=== PATIENT | female | born 1985 | race Hispanic/Latino ===

== ENCOUNTER → 2018-08-22 14:01 | Outpatient (CLI) | payer OTHER, SELFPAY ==
--- NOTE | 2018-08-22 14:02 | US_ITS ---
STUDY: ULTRASOUND TRANSVAGINAL CLINICAL: Female, 33 years old. Pelvic pain TECHNIQUE: Transvaginal COMPARISON: None. FINDINGS: The uterus is normally anteverted and measures 8.4 x 5.2 x 3.3 cm with an endometrial stripe thickness of 1.1 cm. Both ovaries are seen in the both demonstrate normal Doppler flow. The right measures 2.8 x 3.2 x 2.8 cm and has a 2.0 cm cyst within it. The left ovary measures 2.3 x 2.4 x 1.5 cm with no cystic areas within it. There is no free fluid in the cul-de-sac. US/Transvaginal Non- IMPRESSION: A 2.0 cm right ovarian cyst. The study is otherwise normal Electronically Signed: Israel Shi MD at 4:38 EDT Tel , Service support ,
--- NOTE | 2018-08-22 14:02 | US_ITS ---
STUDY: ULTRASOUND TRANSVAGINAL CLINICAL: Female, 33 years old. Pelvic pain TECHNIQUE: Transvaginal COMPARISON: None. FINDINGS: The uterus is normally anteverted and measures 8.4 x 5.2 x 3.3 cm with an endometrial stripe thickness of 1.1 cm. Both ovaries are seen in the both demonstrate normal Doppler flow. The right measures 2.8 x 3.2 x 2.8 cm and has a 2.0 cm cyst within it. The left ovary measures 2.3 x 2.4 x 1.5 cm with no cystic areas within it. There is no free fluid in the cul-de-sac. US/Pelvic (Non ) IMPRESSION: A 2.0 cm right ovarian cyst. The study is otherwise normal Electronically Signed: Israel Shi MD at 4:38 EDT Tel , Service support ,
== END ==
PROVIDERS: Referring Provider Obstetrics & Gynecology; Visit Provider Obstetrics & Gynecology
DX: N80.9 Endometriosis, unspecified (principal); N83.201 Unspecified ovarian cyst, right side
CPT/HCPCS: 76830; 76856; 93976

== ENCOUNTER → 2018-09-16 12:46 | Outpatient (CLI) | payer OTHER, SELFPAY ==
[2018-09-16 13:07] LABS: Absolute Lymphocyte Count 2.39 X10^3/ul (0.83-4.51); Absolute Neutrophil Count 7.1 X10^3/uL (2.0-7.7); Basophil# 0.02 X10^3/uL; Basophil% 0.2 % (0-1); Eosinophil# 0.06 X10^3/uL; Eosinophils% 0.6 % (0-5); Hematocrit 38.7 % (37-47); Hemoglobin 12.1 g/dl (12.0-15.0); Lymphocyte # 2.39 X10^3/ul (4.0); Lymphocyte % 23.6 % (19-41); Mean Corp Hgb Conc 31.3 g/gl (32-36); Mean Corpuscular Hgb 26.8 pg (27.0-32.0); Mean Corpuscular Volume 85.6 fL (81-99); Mean Platelet Vol. 8.6 fl (6.2-12.0); Monocyte# 0.59 X10^3/uL; Monocyte% 5.8 % (0-10); Neutrophil # 7.05 X10^3/uL (2.7-7.7); Neutrophil % 69.6 % (47-70); Platelet Count 287 K/mm3 (150-450); RBC Distribution Width CV 14.7 % (11.6-14.6); RBC Distribution Width SD 44.8 fl (35.1-43.9); Red Blood Count 4.52 M/mm3 (4.2-5.4); White Blood Count 10.1 K/mm3 (4.4-11.0)
[2018-09-16 13:08] LABS: POSITIVE COUNT NO; POSITIVE DIFFERENTIAL NO; POSITIVE MORPHOLOGY NO
== END ==
PROVIDERS: Referring Provider Obstetrics & Gynecology; Visit Provider Obstetrics & Gynecology
DX: N92.0 Excessive and frequent menstruation with regular cycle (principal)
CPT/HCPCS: 36415; 85025

== ENCOUNTER → 2019-01-12 12:12 | Outpatient (CLI) | payer OTHER, SELFPAY ==
[2019-01-11 12:56] VITALS: BMI 34.8
[2019-01-12 12:52] LABS: Absolute Lymphocyte Count 2.08 X10^3/ul (0.83-4.51); Absolute Neutrophil Count 7.5 X10^3/uL (2.0-7.7); Basophil# 0.03 X10^3/uL; Basophil% 0.3 % (0-1); Eosinophil# 0.04 X10^3/uL; Eosinophils% 0.4 % (0-5); Hematocrit 39.2 % (37-47); Hemoglobin 12.3 g/dl (12.0-15.0); Lymphocyte # 2.08 X10^3/ul (4.0); Lymphocyte % 20.5 % (19-41); Mean Corp Hgb Conc 31.4 g/gl (32-36); Mean Corpuscular Hgb 26.9 pg (27.0-32.0); Mean Corpuscular Volume 85.8 fL (81-99); Mean Platelet Vol. 8.9 fl (6.2-12.0); Monocyte# 0.49 X10^3/uL; Monocyte% 4.8 % (0-10); Neutrophil # 7.47 X10^3/uL (2.7-7.7); Neutrophil % 73.7 % (47-70); Platelet Count 353 K/mm3 (150-450); RBC Distribution Width SD 42.9 fl (35.1-43.9); Red Blood Count 4.57 M/mm3 (4.2-5.4); White Blood Count 10.1 K/mm3 (4.4-11.0)
[2019-01-12 12:53] LABS: POSITIVE COUNT NO; POSITIVE DIFFERENTIAL NO; POSITIVE MORPHOLOGY NO
[2019-01-12 13:06] LABS: Erythrocyte Sedimentation Rate 44 mm/hr (0-20)
[2019-01-12 13:27] LABS: ALB/GLOB Ratio 0.7 RATIO (0.9-2.4); AST(SGOT) 10 U/L (15-37); Alanine Aminotransfer ALT/SGPT 12 U/L (13-56); Alkaline Phosphatase 129 U/L (45-117); Anion Gap 7 (5-15); BUN 7 mg/dL (7-18); BUN/Creat Ratio 10.7 RATIO (10-20); Calcium,Total 8.5 mg/dL (8.5-10.1); Chloride 109 mmol/L (98-107); Creatinine, Serum 0.65 mg/dL (0.55-1.02); EST Glomerular Filtration Rate 111 mL/min (>60); Est Glom Filt Rate - Afr Amer 135 mL/min (>60); Globulin 4.1 g/dL (2.2-4.2); Glucose 96 mg/dL (74-106); Potassium 3.9 mmol/L (3.5-5.1); Protein, Total 7.1 g/dL (6.4-8.2); Sodium Level 138 mmol/L (136-145); Thyroid Stim Hormone (TSH) 1.34 uIU/mL (0.358-3.74)
[2019-01-15 10:14] LABS: ANTINUCLEAR ANTIBODIES DIRECT Negative (Negative)
== END ==
PROVIDERS: Family Provider Internal Medicine; PCP Internal Medicine; Referring Provider Internal Medicine; Visit Provider Internal Medicine
DX: R50.9 Fever, unspecified (principal); R53.81 Other malaise; R53.82 Chronic fatigue, unspecified; E66.9 Obesity, unspecified
CPT/HCPCS: 36415; 80053; 84443; 85025; 85652; 86038; 86225; 86235

== ENCOUNTER → 2019-02-18 08:54 | Outpatient (CLI) | payer OTHER, SELFPAY ==
[2019-02-10 14:12] VITALS: BMI 34.8
--- NOTE | 2019-02-18 08:56 | US_ITS ---
STUDY: SUPERFICIAL ULTRASOUND - LEFT NECK REASON FOR EXAM: Female, 33 years old. Left neck pain and bilateral swelling TECHNIQUE: A superficial ultrasound was performed with real-time and static morris-scale imaging. COMPARISON: None. FINDINGS: There are several lymph nodes bilaterally. Largest on the right measuring 2.1 x 1.5 x 0.7 cm. This has a small central hyperechoic fatty hilum with a thicker hypoechoic cortex. Similar morphology is noted within the left neck in multiple lymph nodes, largest measuring 2.4 x 1.5 x 0.8 cm. US/Head/Neck Soft Tissue IMPRESSION: Morphologically abnormal lymph nodes bilaterally. Nonspecific overall finding; and most likely related to some type of viral illness or upper respiratory infection. Recommend repeat physical exam and ultrasound imaging in 3-6 months. Electronically Signed: Deangelo Apodaca DO at 13:54 EDT Tel , Service support ,
--- NOTE | 2019-02-18 08:56 | CT_ITS ---
STUDY: CT CHEST WITHOUT CONTRAST REASON FOR EXAM: Female, 33 years old. Shortness of breath for 6 months, left-sided neck pain RADIATION DOSAGE (If Supplied By Facility): CTDIvol = ( 12.83 ) mGy, DLP = ( 432.68 ) mGycm TECHNIQUE: Transaxial imaging was performed without the administration of intravenous contrast material. Multiplanar coronal and sagittal images were reformatted. Individualized dose optimization techniques were used for this CT. COMPARISON: None. FINDINGS: The lungs are normal. There is no demonstrated pleural abnormality. Normal heart and pericardium. Normal mediastinum. Normal hilar regions. Normal unenhanced pulmonary arteries. Normal aorta arch and descending thoracic aorta. Normal osseous structures. There is a small hiatal hernia. CT/Chest without Contrast IMPRESSION: 1. Normal unenhanced CT Chest examination. No mediastinal/hilar adenopathy or pulmonary nodules detected. 2. Small hiatal hernia. Electronically Signed: Titi Rodriguez MD at 16:14 EDT , Service support ,
== END ==
PROVIDERS: Family Provider Internal Medicine; PCP Internal Medicine; Referring Provider Internal Medicine; Visit Provider Internal Medicine
DX: M54.2 Cervicalgia (principal); D86.9 Sarcoidosis, unspecified; R70.0 Elevated erythrocyte sedimentation rate; R79.89 Other specified abnormal findings of blood chemistry
CPT/HCPCS: 71250; 76536

== ENCOUNTER → 2019-02-22 11:39 | Outpatient (CLI) | payer OTHER, SELFPAY ==
[2019-02-22 11:15] VITALS: BMI 35.3
[2019-02-22 14:23] LABS: Internal QC Validated? YES +Cl - CLEAR BKGD; Monotest Negative (Negative)
== END ==
PROVIDERS: Family Provider Internal Medicine; PCP Internal Medicine; Visit Provider Nurse Practitioner Family
DX: J02.9 Acute pharyngitis, unspecified (principal); R50.9 Fever, unspecified; R59.0 Localized enlarged lymph nodes
CPT/HCPCS: 36415; 86308

== ENCOUNTER → 2019-03-17 07:25 | Outpatient (CLI) | payer OTHER, SELFPAY ==
[2019-03-14 14:34] VITALS: BMI 35.2
--- NOTE | 2019-03-17 07:27 | CT_ITS ---
STUDY: CT SOFT TISSUE NECK WITH CONTRAST REASON FOR EXAM: Female, 33 years old. Cervical lymphadenopathy, night silhouettes and chronic cough RADIATION DOSAGE (If Supplied By Facility): CTDIvol = ( 22.24 ) mGy, DLP = ( 560.85 ) mGycm TECHNIQUE: The patient was scanned in a multi-detector CT scanner. High resolution transaxial imaging was performed following intravenous administration of 75 IV Isovue 370. Sagittal and coronal images were reconstructed. Individualized dose optimization techniques were used for this CT. COMPARISON: None. FINDINGS: Normal bilateral parotid glands. Normal bilateral ammunition specialist spaces. Normal bilateral parapharyngeal spaces. Normal bilateral carotid spaces. Normal bilateral sublingual and submandibular glands and spaces. Normal visualized nasopharynx. Normal retropharyngeal space. Normal perivertebral space. Normal visualized bilateral faucial tonsils. The visualized tongue, tongue base and oropharynx are normal. Shotty bilateral cervical chain lymph nodes. There is no demonstrated solid or cystic mass lesion. There is no abnormal contrast enhancement. Normal epiglottis, bilateral vallecula and hypopharynx. The pre-epiglottic and paraglottic adipose spaces are normal. Normal visualized bilateral piriform sinuses, aryepiglottic folds, vocal cords, and arytenoid-cricoid articulations. Normal subglottic trachea. Normal bilateral lobes of the thyroid gland. Normal visualized pulmonary apices. Normal visualized paranasal sinuses. Normal visualized cervical spine. CT/Soft Tissue Neck WITH Contrast IMPRESSION: Shotty cervical chain lymph nodes and an otherwise unremarkable CT examination of the neck. Electronically Signed: Cipriano Bean MD at 4:56 EDT Tel , Service support ,
[2019-03-20 16:08] LABS: Albumin 3.2 g/dL (2.9-4.4); Alpha-1-Globulins 0.3 g/dL (0.0-0.4); Free Lambda Light Chains 17.3 mg/L (5.7-26.3); Immunoglobulin A 195 mg/dL (87-352); Immunoglobulin G 959 mg/dL (700-1600); Immunoglobulin M 125 mg/dL (26-217); PROEL- TOTAL PROTEIN 6.7 g/dL (6.0-8.5)
== END ==
PROVIDERS: Family Provider Internal Medicine; PCP Internal Medicine; Referring Provider Internal Medicine Hematology & Oncology; Visit Provider Internal Medicine Hematology & Oncology
DX: R59.0 Localized enlarged lymph nodes (principal)
CPT/HCPCS: 36415; 70491; 82784; 83883; 84165; 86334; Q9967

== ENCOUNTER → 2019-06-30 12:04 | Outpatient (CLI) | payer OTHER, SELFPAY ==
[2019-06-09 08:48] VITALS: BMI 35.2
--- NOTE | 2019-06-30 12:08 | US_ITS ---
STUDY: SUPERFICIAL ULTRASOUND - CERVICAL LYMPHADENOPATHY. REASON FOR EXAM: Female, 33 years old. Cervical lymphadenopathy. TECHNIQUE: A superficial ultrasound was performed with real-time and static morris-scale imaging. COMPARISON: Comparison is made with prior ultrasound examination dated February 18, 2019. FINDINGS: Once again, several benign-appearing lymph nodes are seen in both sides of the neck. The largest on the right measures 1.3 cm x 1 cm x 0.4 cm. The largest lymph node on the left side of neck measures 2.2 cm x 1.2 cm x 1.6 cm. US/Head/Neck Soft Tissue IMPRESSION: Stable left-sided cervical lymphadenopathy. Decreased size of the right cervical nodes. Electronically Signed: Karson Hastings, at 14:30 EDT , Service support ,
== END ==
PROVIDERS: Family Provider Internal Medicine; PCP Internal Medicine; Referring Provider Otolaryngology; Visit Provider Otolaryngology
DX: R59.0 Localized enlarged lymph nodes (principal)
CPT/HCPCS: 76536

== ENCOUNTER → 2019-07-21 09:49 | Outpatient (CLI) | payer OTHER, SELFPAY ==
[2019-07-21 09:24] VITALS: BMI 35.5
[2019-07-21 12:35] LABS: Vitamin D,25 Hydroxy 42.6 ng/mL (29.95-100.01)
== END ==
PROVIDERS: Family Provider Internal Medicine; PCP Internal Medicine; Visit Provider Internal Medicine
DX: R53.82 Chronic fatigue, unspecified (principal)
CPT/HCPCS: 36415; 82306

== ENCOUNTER → 2019-07-21 20:17 | Outpatient (CLI) | payer OTHER, SELFPAY ==
[2019-06-09 08:48] VITALS: BMI 35.2
== END ==
PROVIDERS: Family Provider Internal Medicine; PCP Internal Medicine; Referring Provider Internal Medicine; Visit Provider Internal Medicine
DX: G47.10 Hypersomnia, unspecified (principal)
CPT/HCPCS: 95810

== ENCOUNTER → 2019-08-04 10:46 | Outpatient (CLI) | payer OTHER, SELFPAY ==
[2019-08-04 09:43] VITALS: BMI 35.5
[2019-08-04 11:58] LABS: Absolute Lymphocyte Count 1.97 X10^3/uL (0.83-4.51); Basophil# 0.04 X10^3/uL; Basophil% 0.4 % (0-1); Eosinophil# 0.09 X10^3/uL; Eosinophils% 0.9 % (0-5); Hematocrit 41.8 % (37-47); Hemoglobin 12.9 g/dL (12.0-15.0); Lymphocyte # 1.97 X10^3/ul (4.0); Lymphocyte % 20.2 % (19-41); Mean Corp Hgb Conc 30.9 g/dL (32-36); Mean Corpuscular Hgb 25.6 pg (27.0-32.0); Mean Corpuscular Volume 83.1 fL (81-99); Mean Platelet Vol. 8.6 fl (6.2-12.0); Monocyte# 0.49 X10^3/uL; NRBC Flagged by Analyzer 0 % (0-5); Neutrophil # 6.98 X10^3/uL (2.7-7.7); Neutrophil % 71.8 % (47-70); Platelet Count 336 K/mm3 (150-450); RBC Distribution Width CV 14.3 % (11.6-14.6); RBC Distribution Width SD 42.8 fl (35.1-43.9); Red Blood Count 5.03 M/mm3 (4.2-5.4); White Blood Count 9.7 K/mm3 (4.4-11.0)
[2019-08-08 14:08] LABS: Alternaria alternata <0.10 kU/L (Class 0); Bermuda Grass 0.52 kU/L (Class I); Bluegrass, Kentucky 6.89 kU/L (Class IV); Cat Hair/Dander, Standard <0.10 kU/L (Class 0); D farinae Mite 0.86 kU/L (Class II); D pteronyssinus 0.47 kU/L (Class I); Dog Epithelia <0.10 kU/L (Class 0); Elm, American White 0.11 kU/L (Class 0/I); Oak, White <0.10 kU/L (Class 0); Plantain, English 1.23 kU/L (Class II); Ragweed, Short/Common 4.58 kU/L (Class IV)
[2019-08-08 16:31] LABS: Mouse Urine <0.10 kU/L (Class 0)
[2019-08-08 20:07] LABS: Aspirgillus flavus Negative (Neg:<1:1); Aspirgillus fumigatus Negative (Neg:<1:1); Aspirgillus niger Negative (Neg:<1:1)
[2019-08-09 12:42] LABS: Immunoglobulin E 58 IU/mL (6-495)
== END ==
PROVIDERS: Family Provider Internal Medicine; PCP Internal Medicine; Referring Provider Nurse Practitioner Acute Care; Visit Provider Nurse Practitioner Acute Care
DX: J45.909 Unspecified asthma, uncomplicated (principal)
CPT/HCPCS: 36415; 82785; 85025; 86003; 86606

== ENCOUNTER → 2019-08-31 09:07 | Outpatient (CLI) | payer OTHER, SELFPAY ==
[2019-08-30 15:29] VITALS: BMI 35.9
[2019-08-31 10:07] LABS: Erythrocyte Sedimentation Rate 49 mm/hr (0-20)
[2019-08-31 10:08] LABS: Absolute Lymphocyte Count 2.12 X10^3/uL (0.83-4.51); Absolute Neutrophil Count 6.2 X10^3/uL (2.0-7.7); Basophil# 0.02 X10^3/uL; Basophil% 0.2 % (0-1); Eosinophil# 0.07 X10^3/uL; Eosinophils% 0.8 % (0-5); Hematocrit 38.9 % (37-47); Hemoglobin 12.1 g/dL (12.0-15.0); Lymphocyte # 2.12 X10^3/ul (4.0); Lymphocyte % 24.2 % (19-41); Mean Corp Hgb Conc 31.1 g/dL (32-36); Mean Corpuscular Hgb 25.5 pg (27.0-32.0); Mean Corpuscular Volume 82.1 fL (81-99); Monocyte# 0.37 X10^3/uL; Monocyte% 4.2 % (0-10); NRBC Flagged by Analyzer 0 % (0-5); Neutrophil # 6.16 X10^3/uL (2.7-7.7); Neutrophil % 70.3 % (47-70); Platelet Count 352 K/mm3 (150-450); RBC Distribution Width CV 14.4 % (11.6-14.6); RBC Distribution Width SD 43.3 fl (35.1-43.9); Red Blood Count 4.74 M/mm3 (4.2-5.4); White Blood Count 8.8 K/mm3 (4.4-11.0)
[2019-08-31 10:33] LABS: Anion Gap 7 (5-15); BUN 8 mg/dL (7-18); BUN/Creat Ratio 10.3 RATIO (10-20); Calcium,Total 8.4 mg/dL (8.5-10.1); Chloride 108 mmol/L (98-107); Creatinine, Serum 0.78 mg/dL (0.55-1.02); EST Glomerular Filtration Rate 90 mL/min (>60); Est Glom Filt Rate - Afr Amer 109 mL/min (>60); Glucose 96 mg/dL (74-106); Potassium 3.9 mmol/L (3.5-5.1); Sodium Level 139 mmol/L (136-145); T4 Free Direct 1.02 ng/dL (0.76-1.46); Thyroid Stim Hormone (TSH) 1.37 uIU/mL (0.358-3.74)
== END ==
PROVIDERS: Family Provider Internal Medicine; PCP Internal Medicine; Referring Provider Internal Medicine; Visit Provider Internal Medicine
DX: R50.9 Fever, unspecified (principal); R53.82 Chronic fatigue, unspecified
CPT/HCPCS: 36415; 80048; 84439; 84443; 85025; 85652; 86140

== ENCOUNTER → 2019-09-01 13:08 | Outpatient (CLI) | payer OTHER, SELFPAY ==
[2019-08-30 15:29] VITALS: BMI 35.9
[2019-09-01 13:12] LABS: Bacteria 0 SEEN /hpf (None Seen); Mucous, Urine 0 SEEN /hpf (<or=2+); Red Blood Cells-Urine 0 SEEN /hpf (0-5); White Blood Cells 0 SEEN /hpf (0-5)
[2019-09-01 13:59] LABS: Color, Urine Yellow (Yellow); Glucose, Dipstick Normal (Normal); Ketone-Dipstick 5 mg/dl (Negative); Leukocyte Esterase-Dipstick Negative /ul (Negative); Nitrite-Dipstick Negative (Negative); Occult Blood-Urine Negative /ul (Negative); Protein-Dipstick Negative (Negative); Urine Bilirubin Dipstick Negative (Negative); Urine Clarity Sl. Cloudy (Clear); Urine Urobilinogen Normal (Normal)
[2019-09-01 14:08] LABS: Squamous Epithelial Cells - UA 0-5 SEEN /hpf (5-10)
[2019-09-04 16:12] LABS: Cytoplasmic Ab (C-ANCA) <1:20 titer (Neg:<1:20)
[2019-09-04 16:30] LABS: ANTINUCLEAR ANTIBODIES DIRECT Negative (Negative)
[2019-09-04 16:50] LABS: Perinuclear Ab (P-ANCA) <1:20 titer (Neg:<1:20)
== END ==
PROVIDERS: Family Provider Internal Medicine; PCP Internal Medicine; Referring Provider Internal Medicine; Visit Provider Internal Medicine
DX: R20.0 Anesthesia of skin (principal); R20.2 Paresthesia of skin; R53.82 Chronic fatigue, unspecified; R50.9 Fever, unspecified; R70.0 Elevated erythrocyte sedimentation rate; R79.82 Elevated C-reactive protein (CRP)
CPT/HCPCS: 36415; 81001; 86038; 86225; 86235; 86256

== ENCOUNTER → 2019-09-23 08:51 | Outpatient (CLI) | payer OTHER, SELFPAY ==
[2019-09-04 09:50] VITALS: BMI 35.6
--- NOTE | 2019-09-23 08:53 | MRI_ITS ---
STUDY: MRI BRAIN WITH AND WITHOUT CONTRAST REASON FOR EXAM: Female, 34 years old. Tingling, numbness, fatigue and elevated CRP/ESR. Balance issues. Brain fog. TECHNIQUE: Standardized multiplanar fat and water weighted pulse sequences were obtained. IV Dotarem 17 was administered for the contrast portion of the examination. COMPARISON: None. FINDINGS: No restricted diffusion to suspect acute or subacute ischemic infarct. No focal signal abnormalities throughout the brain parenchyma in all of the pulse sequences. Normal size of the ventricles and extra-axial spaces for the patient's age. Normal white matter tracts of the supratentorial brain. Normal bilateral basal ganglia. Normal thalami. There is no extra-axial fluid accumulation. Normal flow voids within the major intracranial circulation suggesting patency by spin echo criteria. Normal venous enhancement. There is no enhancing intra-axial or extra-axial abnormality. Normal sella turcica, pituitary gland, infundibular stalk, optic chiasm and hypothalamus. Normal tectal plate and pineal gland. Normal midbrain, javier and medulla. Normal cerebellum. Normal basal cisterns. Normal bilateral temporal bones. Normal bilateral internal auditory canals. No demonstrated orbital abnormality, within the constraints of a routine brain study. Normal visualized paranasal sinuses. Normal calvarium and skull base. Normal visualized soft tissue structures. Normal visualized upper cervical spine. MRI/Brain W/WO Contrast IMPRESSION: Normal unenhanced and enhanced MRI of the brain. Electronically Signed: Tirso Biggs MD at 10:20 EST , Service support ,
== END ==
PROVIDERS: Family Provider Internal Medicine; PCP Internal Medicine; Referring Provider Internal Medicine; Visit Provider Internal Medicine
DX: R20.0 Anesthesia of skin (principal); R20.2 Paresthesia of skin; R79.82 Elevated C-reactive protein (CRP); R70.0 Elevated erythrocyte sedimentation rate
CPT/HCPCS: 70553; A9575

== ENCOUNTER 2019-10-22 21:26 | Emergency (ER) | payer OTHER, SELFPAY ==
[2019-10-16 09:40] VITALS: BMI 35.6
[2019-10-22 21:26] VITALS: BP 140/99; PULSE 112; RESP 24; TEMP 36.6; O2SAT 97; BMI 34.9
[2019-10-22 22:21] VITALS: PULSE 95; RESP 18; RESP 20; O2SAT 98
[2019-10-22] MEDS: Ipratropium/Albuterol Sulfate 3 ML AMPUL.NEB INHALATION (22:21)
--- NOTE | 2019-10-22 22:33 | ED.VIS.GEN ---
History of Present Illness Chief Complaint: Cough Informant: Patient Narrative: Patient states that about 2 hours prior to arrival she began to have a coughing fit that has not stopped. She is tried using her inhaler with no relief. On 13 October she states she was diagnosed with bronchitis and started on Augmentin and a tapering dose of prednisone. She has been taking Mucinex and none of these things have really helped her. She states she feels a grinding sensation in her chest. She cannot really describe it any further than that. She notes the cough has been productive. Past Medical History - Allergies and Home Meds Allergies/Adverse Reactions: Allergies Penicillins Allergy (Severe, Verified 10/22/19 21:29) Hives lactose Adverse Reaction (Intermediate, Verified 10/22/19 21:29) Upset Stomach Primary Care Physician: Dianna Kraus MD [Primary Care Provider] - Surgical History: cholecystectomy, - - Previous Smoking Status: Never smoker - Family History Maternal Family History: Family History (Last Reviewed 10/16/19 @ 09:40 by Oneyda Ely) Mother Thyroid disorder Father Hyperlipidemia Grandmother Heart disease Cancer Grandfather No problems noted. Grandfather Colon cancer Uncle Cancer Aunt Cancer Family History: Reports: No pertinent history Paternal Family History: Family History (Last Reviewed 10/16/19 @ 09:40 by Oneyda Ely) Mother Thyroid disorder Father Hyperlipidemia Grandmother Heart disease Cancer Grandfather No problems noted. Grandfather Colon cancer Uncle Cancer Aunt Cancer Family History: Reports: No pertinent history Review of Systems General: Denies: Chills, Fever, Sweats Eyes: Denies: Visual changes - bilaterally, Diplopia ENT: Denies: Rhinorrhea, Sore throat Cardiovascular: Denies: Chest pain, Palpitations Respiratory: Reports: Dyspnea, Cough, Sputum. Denies: Dyspnea on exertion Gastrointestinal: Denies: Abdominal pain, Nausea, Vomiting, Diarrhea, Melena, Hematochezia Genitourinary: Denies: Dysuria, Hematuria, Frequency Musculoskeletal: Denies: Back pain, Extremity Pain Skin: Denies: Rash, Wounds Neurological: Denies: Headache, Weakness, Numbness Physical Exam Vital Signs/Narrative: Vital Signs Temp Pulse Resp BP Pulse Ox 10/22/19 21:26 97.9 F 112 H 24 H 140/99 H 97 General: Well nourished, Well developed, No Acute Distress Head: Normocephalic, Atraumatic Eyes: Perrl, EOMI ENT: Moist mucous membranes, No rhinorrhea, TM's clear. Negative for: Dry mucous membranes Neck: Supple, Nontender, No lymphadenopathy Cardiovascular: Regular rate, Regular rhythm, No murmurs Respiratory: No distress, CTA bilaterally, Chest nontender, - - She has a frequent cough.. Negative for: Rales, Rhonchi, Wheezing Abdomen: Soft, Nontender, Nondistended, Normal bowel sounds Back: Nontender, Normal Inspection Extremities: Nontender, No edema Skin: Normal color, No rash Neurological: Alert, Oriented x3, Cranial nerves II-XII grossly intact, Normal Strength, Normal Sensation Psychological: Normal affect, Normal Mood Diagnostic/Tx/Re-eval Chest X-Ray - ED: 2 View, No Acute Disease - Medical Decision Making Patient received a DuoNeb and her symptoms are better. Chest x-ray is negative for infiltrate. We talked about humidification of the room. This point patient is improved and will be discharged home. She is to finish off her prednisone. ED Disposition - Plan for ED Patient: Disposition: Home or Assisted Living Diagnosis: Bronchitis Instructions: BRONCHITIS, Antiobiotic Treatment (Adult) Referrals: Dianna Kraus MD [Primary Care Provider] - As Needed
--- NOTE | 2019-10-22 22:35 | RAD_ITS ---
STUDY: X-RAY CHEST REASON FOR EXAM: Female, 34 years old. Cough TECHNIQUE: PA and lateral views of the chest. COMPARISON: None. FINDINGS: Cardiac silhouette unremarkable. Pulmonary vascularity unremarkable. Aorta unremarkable. No focal airspace opacities. No pleural effusions. Upper abdomen unremarkable. Osseous structures intact. No pneumothorax. RAD/Chest PA and Lateral IMPRESSION: No acute cardiopulmonary findings Electronically Signed: Doug Valles, at 22:50 EST Tel , Service support ,
[2019-10-22 22:58] VITALS: PULSE 97; RESP 16; O2SAT 98
== END 2019-10-22 23:11 | disposition home or self-care (01) ==
PROVIDERS: Emergency Provider Emergency Medicine; Family Provider Internal Medicine; PCP Internal Medicine
DX: J40 Bronchitis, not specified as acute or chronic (principal)
CPT/HCPCS: 71046; 94640; 99251; 99282; G0463

== ENCOUNTER → 2020-04-26 10:03 | Outpatient (CLI) | payer OTHER, SELFPAY ==
[2020-04-26 09:39] VITALS: BMI 35.9
[2020-04-26 12:20] LABS: Absolute Lymphocyte Count 2.31 X10^3/uL (0.83-4.51); Absolute Neutrophil Count 8.2 X10^3/uL (2.0-7.7); Basophil# 0.03 X10^3/uL; Basophil% 0.3 % (0-1); Eosinophil# 0.09 X10^3/uL; Eosinophils% 0.8 % (0-5); Hematocrit 41.3 % (37-47); Hemoglobin 12.3 g/dL (12.0-15.0); Lymphocyte # 2.31 X10^3/ul (4.0); Lymphocyte % 20.7 % (19-41); Mean Corp Hgb Conc 29.8 g/dL (32-36); Mean Corpuscular Hgb 24.2 pg (27.0-32.0); Mean Corpuscular Volume 81.3 fL (81-99); Mean Platelet Vol. 8.9 fl (6.2-12.0); Monocyte# 0.44 X10^3/uL; Monocyte% 3.9 % (0-10); NRBC Flagged by Analyzer 0 % (0-5); Neutrophil # 8.22 X10^3/uL (2.7-7.7); Neutrophil % 73.9 % (47-70); Platelet Count 396 K/mm3 (150-450); RBC Distribution Width SD 44.6 fl (35.1-43.9); Red Blood Count 5.08 M/mm3 (4.2-5.4); White Blood Count 11.1 K/mm3 (4.4-11.0)
[2020-04-26 12:29] LABS: Erythrocyte Sedimentation Rate 61 mm/hr (0-20)
[2020-04-26 12:31] LABS: ALB/GLOB Ratio 0.7 RATIO (0.9-2.4); AST(SGOT) 8 U/L (15-37); Alanine Aminotransfer ALT/SGPT 13 U/L (13-56); Alkaline Phosphatase 173 U/L (45-117); Anion Gap 9 (5-15); BUN 6 mg/dL (7-18); BUN/Creat Ratio 8.1 RATIO (10-20); Calcium,Total 8.9 mg/dL (8.5-10.1); Chloride 106 mmol/L (98-107); Creatinine, Serum 0.74 mg/dL (0.55-1.02); EST Glomerular Filtration Rate 95 mL/min (>60); Est Glom Filt Rate - Afr Amer 115 mL/min (>60); Globulin 4.6 g/dL (2.2-4.2); Glucose 87 mg/dL (74-106); Protein, Total 7.6 g/dL (6.4-8.2); Sodium Level 139 mmol/L (136-145)
== END ==
PROVIDERS: PCP Internal Medicine; Referring Provider Internal Medicine; Visit Provider Internal Medicine
DX: K21.9 Gastro-esophageal reflux disease without esophagitis (principal); R70.0 Elevated erythrocyte sedimentation rate
CPT/HCPCS: 36415; 80053; 85025; 85652; 86140

== ENCOUNTER → 2020-06-10 | Outpatient (CLI) | payer OTHER, SELFPAY ==
[2020-06-10 12:15] VITALS: BMI 35.9
[2020-06-15 07:40] LABS: HPV APTIMA, High Risk Negative (Negative)
== END | disposition home or self-care (01) ==
LOC: LABSPEC 17:03
PROVIDERS: PCP Internal Medicine; Referring Provider Nurse Practitioner Women's Health; Visit Provider Nurse Practitioner Women's Health
DX: Z12.4 Encounter for screening for malignant neoplasm of cervix (principal)
CPT/HCPCS: 87624; 88175; G0145

== ENCOUNTER → 2020-06-27 11:00 | Outpatient (CLI) | payer OTHER, SELFPAY ==
[2020-06-21 08:37] VITALS: BMI 36.6
== END ==
PROVIDERS: PCP Internal Medicine; Visit Provider Internal Medicine Critical Care Medicine
DX: G47.33 Obstructive sleep apnea (adult) (pediatric) (principal)
CPT/HCPCS: 98960; G0463

== ENCOUNTER → 2020-12-25 14:00 | Outpatient (CLI) | payer BC, SELFPAY | PROVIDERS: PCP Internal Medicine; Referring Provider Internal Medicine Gastroenterology; Visit Provider Internal Medicine Gastroenterology | DX: Z20.822 Contact with and (suspected) exposure to COVID-19 (principal) | CPT/HCPCS: 87635; C9803; U0005; U0003 ==

== ENCOUNTER → 2021-09-05 16:08 | Outpatient (CLI) | payer BC, SELFPAY ==
--- NOTE | 2021-09-05 16:10 | RAD_ITS ---
STUDY: X-RAY CHEST REASON FOR EXAM: Female, 36 years old. uri, cough TECHNIQUE: PA and lateral views of the chest. COMPARISON: 10/22/2019 FINDINGS: The lungs are clear and expanded. There is no demonstrated pleural abnormality. Normal size heart. Normal mediastinum and judy. Normal visualized pulmonary arteries. Normal visualized aortic arch and descending thoracic aorta. Normal visualized thoracic spine. Normal visualized ribs, clavicles, and shoulders. There is no demonstrated abnormality of the visualized soft tissue structures of the upper abdomen. RAD/Chest PA and Lateral IMPRESSION: Normal x-ray examination of the chest. Electronically Signed: Titi Rodriguez MD (Brooks) at 16:08 EDT , Service support ,
== END ==
PROVIDERS: PCP Internal Medicine; Referring Provider Nurse Practitioner Family; Visit Provider Nurse Practitioner Family
DX: J06.9 Acute upper respiratory infection, unspecified (principal); J45.901 Unspecified asthma with (acute) exacerbation
CPT/HCPCS: 71046; 87633; 87635; U0005; U0003

== ENCOUNTER → 2021-11-10 09:25 | Outpatient (CLI) | payer BC, SELFPAY ==
[2021-11-10 12:08] LABS: Absolute Lymphocyte Count 2.76 X10^3/uL (0.83-4.51); Absolute Neutrophil Count 6.6 X10^3/uL (2.0-7.7); Basophil# 0.03 X10^3/uL; Basophil% 0.3 % (0-1); Eosinophil# 0.13 X10^3/uL; Eosinophils% 1.3 % (0-5); Hematocrit 37.9 % (37-47); Hemoglobin 11.6 g/dL (12.0-15.0); Lymphocyte # 2.76 X10^3/ul (0.83-4.51); Lymphocyte % 27.8 % (19-41); Mean Corp Hgb Conc 30.6 g/dL (32-36); Mean Corpuscular Hgb 24.6 pg (27.0-32.0); Mean Corpuscular Volume 80.3 fL (81-99); Mean Platelet Vol. 9.3 fl (6.2-12.0); Monocyte# 0.42 X10^3/uL; Monocyte% 4.2 % (0-10); NRBC Flagged by Analyzer 0 % (0-5); Neutrophil # 6.56 X10^3/uL (2.7-7.7); Neutrophil % 66.1 % (47-70); Platelet Count 333 K/mm3 (150-450); RBC Distribution Width CV 15.6 % (11.6-14.6); Red Blood Count 4.72 M/mm3 (4.2-5.4); White Blood Count 9.9 K/mm3 (4.4-11.0)
[2021-11-10 12:30] LABS: Ferritin 8 ng/mL (8-252); Iron 34 ug/dL (50-170); Iron Binding Capacity,Total 464 ug/dL (250-450)
== END ==
PROVIDERS: PCP Internal Medicine; Referring Provider Internal Medicine; Visit Provider Internal Medicine
DX: D64.9 Anemia, unspecified (principal)
CPT/HCPCS: 36415; 82728; 83540; 83550; 85025

== ENCOUNTER → 2022-06-05 | Outpatient (CLI) | payer BC, SELFPAY ==
[2022-06-05 15:05] LABS: Absolute Lymphocyte Count 2.38 X10^3/uL (0.83-4.51); Absolute Neutrophil Count 5.9 X10^3/uL (2.0-7.7); Basophil# 0.02 X10^3/uL; Basophil% 0.2 % (0-1); Eosinophil# 0.08 X10^3/uL; Eosinophils% 0.9 % (0-5); Hematocrit 41.5 % (37-47); Hemoglobin 12.9 g/dL (12.0-15.0); Lymphocyte # 2.38 X10^3/ul (0.83-4.51); Lymphocyte % 27.1 % (19-41); Mean Corp Hgb Conc 31.1 g/dL (32-36); Mean Corpuscular Hgb 26.3 pg (27.0-32.0); Mean Corpuscular Volume 84.7 fL (81-99); Mean Platelet Vol. 9.1 fl (6.2-12.0); Monocyte# 0.36 X10^3/uL; Monocyte% 4.1 % (0-10); NRBC Flagged by Analyzer 0 % (0-5); Neutrophil # 5.91 X10^3/uL (2.7-7.7); Neutrophil % 67.4 % (47-70); Platelet Count 352 K/mm3 (150-450); RBC Distribution Width CV 14.6 % (11.6-14.6); White Blood Count 8.8 K/mm3 (4.4-11.0)
[2022-06-05 15:33] LABS: ALB/GLOB Ratio 0.7 RATIO (0.9-2.4); AST(SGOT) 13 U/L (15-37); Alanine Aminotransfer ALT/SGPT 13 U/L (13-56); Alkaline Phosphatase 127 U/L (45-117); Anion Gap 5 (5-15); BUN 9 mg/dL (7-18); BUN/Creat Ratio 11.3 RATIO (10-20); Chloride 110 mmol/L (98-107); EST Glomerular Filtration Rate 87 mL/min (>60); Est Glom Filt Rate - Afr Amer 105 mL/min (>60); Globulin 4.2 g/dL (2.2-4.2); Glucose 88 mg/dL (74-106); Protein, Total 7.2 g/dL (6.4-8.2); Sodium Level 140 mmol/L (136-145)
== END | disposition home or self-care (01) ==
LOC: BIMLAB 13:32
PROVIDERS: PCP Internal Medicine; Referring Provider Internal Medicine; Visit Provider Internal Medicine
DX: J45.909 Unspecified asthma, uncomplicated (principal)
CPT/HCPCS: 36415; 80053; 85025

== ENCOUNTER → 2022-08-06 | Outpatient (CLI) | payer BC, SELFPAY | END | disposition home or self-care (01) | LOC: LABSPEC 10:30 | PROVIDERS: PCP Internal Medicine; Referring Provider Nurse Practitioner Family; Visit Provider Nurse Practitioner Family | DX: R09.89 Other specified symptoms and signs involving the circulatory and respiratory systems (principal) | CPT/HCPCS: 87635; U0003; U0005 ==

== ENCOUNTER → 2022-09-03 | Outpatient (CLI) | payer BC, SELFPAY | END | disposition home or self-care (01) | PROVIDERS: PCP Internal Medicine; Visit Provider Obstetrics & Gynecology | DX: R10.9 Unspecified abdominal pain (principal) | CPT/HCPCS: 87086 ==

== ENCOUNTER → 2022-09-16 | Outpatient (CLI) | payer BC, SELFPAY ==
--- NOTE | 2022-09-16 13:59 | US_ITS ---
STUDY: ULTRASOUND OF THE FEMALE PELVIS - COMPLETE REASON FOR EXAM: Female, 37 years old. Pelvic pain. History of endometriosis. LMP: 09/13/2022. TECHNIQUE: Transabdominal and Transvaginal TECHNICAL QUALITY: Adequate. COMPARISON: Comparison is made with prior study dated 08/22/2018. FINDINGS: The uterus is anteverted and is in a midline position. The uterus measures 6.4 cm x 2.7 cm x 3.6 cm. There is a Nabothian cyst of the cervix. The endometrium measures 3.8 mm in thickness, and is hyperechoic. There is no demonstrated endometrial mass. Heterogeneous appearance of the myometrium although no focal fibroid is seen. I.U.D. - The patient does not have an I.U.D. The right ovary is visualized. The right ovary measures 1.7 cm x 2.4 cm x 1.9 cm. There is no right ovarian cyst or ovarian mass. There is no visualized right adnexal mass or complex lesion. There is normal arterial and normal venous vascularity. The left ovary is visualized. The left ovary measures 1.8 cm x 1.6 x 1.1 cm. There is no left ovarian cyst or ovarian mass. There is no visualized left adnexal mass or complex lesion. There is normal arterial and normal venous vascularity. There is no fluid in the cul-de-sac. The pre void volume of the bladder was 476 ml. US/Pelvic (Non ) IMPRESSION: Heterogeneous echotexture of the uterine myometrium suggesting fibroid change. NABOTHIAN cysts. Electronically Signed: Karson Hastings MD at 15:20 EDT ,
== END | disposition home or self-care (01) ==
PROVIDERS: PCP Internal Medicine; Visit Provider Obstetrics & Gynecology
DX: N88.8 Other specified noninflammatory disorders of cervix uteri (principal); R10.31 Right lower quadrant pain
CPT/HCPCS: 76830; 76856

== ENCOUNTER → 2022-11-10 | Outpatient (CLI) | payer BC, SELFPAY | END | disposition home or self-care (01) | LOC: LABSPEC 11:40 | PROVIDERS: PCP Internal Medicine; Referring Provider Nurse Practitioner Family; Visit Provider Nurse Practitioner Family | DX: R05.9 Cough, unspecified (principal) | CPT/HCPCS: 87635; U0003; U0005 ==

== ENCOUNTER → 2022-11-24 | Outpatient (CLI) | payer BC, SELFPAY ==
[2022-11-24 17:14] LABS: Erythrocyte Sedimentation Rate 31 mm/hr (0-30)
[2022-11-24 17:15] LABS: Absolute Lymphocyte Count 2.72 X10^3/uL (0.83-4.51); Absolute Neutrophil Count 5.4 X10^3/uL (2.0-7.7); Basophil# 0.02 X10^3/uL; Basophil% 0.2 % (0-1); Eosinophil# 0.03 X10^3/uL; Eosinophils% 0.3 % (0-5); Hematocrit 37.5 % (37-47); Hemoglobin 11.6 g/dL (12.0-15.0); Lymphocyte # 2.72 X10^3/ul (0.83-4.51); Lymphocyte % 31.7 % (19-41); Mean Corp Hgb Conc 30.9 g/dL (32-36); Mean Corpuscular Hgb 25.2 pg (27.0-32.0); Mean Corpuscular Volume 81.3 fL (81-99); Mean Platelet Vol. 8.9 fl (6.2-12.0); Monocyte# 0.37 X10^3/uL; Monocyte% 4.3 % (0-10); NRBC Flagged by Analyzer 0 % (0-5); Neutrophil # 5.41 X10^3/uL (2.7-7.7); Neutrophil % 63.2 % (47-70); Platelet Count 266 K/mm3 (150-450); RBC Distribution Width CV 14.6 % (11.6-14.6); RBC Distribution Width SD 42.5 fl (35.1-43.9); Red Blood Count 4.61 M/mm3 (4.2-5.4); White Blood Count 8.6 K/mm3 (4.4-11.0)
[2022-11-24 17:50] LABS: AST(SGOT) 9 U/L (15-37); Alanine Aminotransfer ALT/SGPT 23 U/L (13-56); Albumin, Serum 3.7 g/dL (3.2-5.0); Alkaline Phosphatase 123 U/L (45-117); Anion Gap 6 (5-15); BUN 16 mg/dL (7-18); BUN/Creat Ratio 21.2 RATIO (10-20); CRP 6.43 mg/L (0.0-3.0); Chloride 108 mmol/L (98-107); Creatinine, Serum 0.75 mg/dL (0.55-1.02); EST Glomerular Filtration Rate 92 mL/min (>60); Est Glom Filt Rate - Afr Amer 112 mL/min (>60); Ferritin 21 ng/mL (8-252); Globulin 3.7 g/dL (2.2-4.2); Glucose 90 mg/dL (74-106); Iron 28 ug/dL (50-170); Iron Binding Capacity,Total 362 ug/dL (250-450); LDH 165 U/L (84-246); PERCENT IRON SATURATION 7.7 % (15.0-55.0); Potassium 3.7 mmol/L (3.5-5.1); Protein, Total 7.4 g/dL (6.4-8.2); Sodium Level 142 mmol/L (136-145)
[2022-11-26 14:09] LABS: Anti-Centromere B Ab <0.2 AI (0.0-0.9); Anti-Chromatin <0.2 AI (0.0-0.9); Anti-Jo <0.2 AI (0.0-0.9); Anti-Scleroderma-70 AB <0.2 AI (0.0-0.9); RNP Ab 0.3 AI (0.0-0.9); SJOGREN'S Anti-SS-A test < 0.2 AI (0.0-0.9); SJOGREN'S Anti-SS-B test < 0.2 AI (0.0-0.9); Smith Ab <0.2 AI (0.0-0.9)
[2022-11-26 15:08] LABS: Endomysial Antibody IgA Negative (Negative)
[2022-11-26 17:32] LABS: Anti-dsDNA Ab <1 IU/mL (0-9)
[2022-11-26 17:47] LABS: Immunoglobulin A 201 mg/dL (87-352); t-Transglutaminase IgA <2 U/mL (0-3)
[2022-11-29 17:07] LABS: Alpha-1-Globulins 0.2 g/dL (0.0-0.4); Alpha-2-Globulins 0.8 g/dL (0.4-1.0); Cytoplasmic Ab (C-ANCA) <1:20 titer (Neg:<1:20); Gamma Globulin 0.9 g/dL (0.4-1.8); Immunoglobulin A 204 mg/dL (87-352); Immunoglobulin E 91 IU/mL (6-495); Immunoglobulin G 936 mg/dL (586-1602); Immunoglobulin M 141 mg/dL (26-217)
[2022-12-01 11:11] LABS: Perinuclear Ab (P-ANCA) <1:20 titer (Neg:<1:20)
== END | disposition home or self-care (01) ==
PROVIDERS: PCP Internal Medicine; Referring Provider Nurse Practitioner Adult Health; Visit Provider Nurse Practitioner Adult Health
DX: R10.30 Lower abdominal pain, unspecified (principal); D64.9 Anemia, unspecified; K21.9 Gastro-esophageal reflux disease without esophagitis
CPT/HCPCS: 36415; 80053; 82728; 82784; 82785; 83516; 83540; 83550; 83615; 84165; 85025; 85652; 86140; 86225; 86235; 86255; 86256; 86334

== ENCOUNTER → 2022-12-28 | Outpatient (CLI) | payer BC, SELFPAY ==
[2022-12-28] MEDS: 0.9% NaCl Peripheral Flush Adult/Peds IV (14:50)
[2022-12-28] MEDS: 0.9% NaCl IVPB Med Flush (250 mL) 15 ML IV (14:51)
[2022-12-28 14:52] VITALS: BP 112/75; PULSE 90; RESP 16; O2SAT 98; BMI 36.8
[2022-12-28 15:48] VITALS: BP 112/71; PULSE 94
== END | disposition home or self-care (01) ==
LOC: MEDOUTP 14:29
PROVIDERS: PCP Internal Medicine; Referring Provider Internal Medicine; Visit Provider Internal Medicine
DX: D64.9 Anemia, unspecified (principal)
CPT/HCPCS: 96365; J1756; J7050; A4216

== ENCOUNTER → 2022-12-30 | Outpatient (CLI) | payer BC, SELFPAY ==
[2022-12-30 15:08] VITALS: BP 125/72; PULSE 97; RESP 16; TEMP 36.2; O2SAT 99; BMI 36.8
[2022-12-30] MEDS: 0.9% NaCl IVPB Med Flush (250 mL) 15 ML IV (15:37)
[2022-12-30] MEDS: 0.9% NaCl Peripheral Flush Adult/Peds IV (15:37)
[2022-12-30 16:29] VITALS: BP 129/65; PULSE 72
== END | disposition home or self-care (01) ==
LOC: MEDOUTP 14:55
PROVIDERS: PCP Internal Medicine; Referring Provider Internal Medicine; Visit Provider Internal Medicine
DX: D64.9 Anemia, unspecified (principal)
CPT/HCPCS: 96365; J1756; J7050; A4216

== ENCOUNTER → 2023-01-01 | Outpatient (CLI) | payer BC, SELFPAY ==
[2023-01-01 14:13] VITALS: BP 127/71; PULSE 86; RESP 16; TEMP 36.4; O2SAT 97; BMI 36.8
[2023-01-01] MEDS: 0.9% NaCl IVPB Med Flush (250 mL) 15 ML IV (14:41)
[2023-01-01] MEDS: 0.9% NaCl Peripheral Flush Adult/Peds IV (14:41)
[2023-01-01 15:27] VITALS: BP 111/61; PULSE 88; RESP 16; TEMP 36.2; O2SAT 99
== END | disposition home or self-care (01) ==
LOC: MEDOUTP 14:04
PROVIDERS: PCP Internal Medicine; Referring Provider Internal Medicine; Visit Provider Internal Medicine
DX: D64.9 Anemia, unspecified (principal)
CPT/HCPCS: 96365; J1756; J7050; A4216

== ENCOUNTER → 2023-01-04 | Outpatient (CLI) | payer BC, SELFPAY ==
[2023-01-04 14:57] VITALS: BP 115/76; PULSE 84; RESP 16; TEMP 36.2; O2SAT 99; BMI 37.4
[2023-01-04] MEDS: 0.9% NaCl Peripheral Flush Adult/Peds IV (15:09)
[2023-01-04] MEDS: 0.9% NaCl IVPB Med Flush (250 mL) 15 ML IV (15:09)
[2023-01-04 15:43] VITALS: BP 104/63; PULSE 94; RESP 14; TEMP 35.9; O2SAT 99
== END | disposition home or self-care (01) ==
LOC: MEDOUTP 14:54
PROVIDERS: PCP Internal Medicine; Referring Provider Internal Medicine; Visit Provider Internal Medicine
DX: D64.9 Anemia, unspecified (principal)
CPT/HCPCS: 96374; 96361; J1756; J7050; A4216

== ENCOUNTER → 2023-01-06 | Outpatient (CLI) | payer BC, SELFPAY ==
[2023-01-06 14:46] VITALS: BP 110/64; PULSE 92; RESP 16; O2SAT 98
[2023-01-06] MEDS: 0.9% NaCl Peripheral Flush Adult/Peds IV (14:49)
[2023-01-06] MEDS: 0.9% NaCl IVPB Med Flush (250 mL) 15 ML IV (14:49)
[2023-01-06 15:52] VITALS: BP 108/58; PULSE 93; RESP 16; O2SAT 100
== END | disposition home or self-care (01) ==
LOC: MEDOUTP 14:23
PROVIDERS: PCP Internal Medicine; Referring Provider Internal Medicine; Visit Provider Internal Medicine
DX: D64.9 Anemia, unspecified (principal)
CPT/HCPCS: 96365; J1756; J7050; A4216

== ENCOUNTER → 2023-01-12 | Outpatient (CLI) | payer BC, SELFPAY ==
--- NOTE | 2023-01-12 18:20 | CT_ITS ---
EXAM: CT ABDOMEN AND PELVIS WITH INTRAVENOUS CONTRAST CLINICAL INDICATION: lower abd pain -- oral and iv TECHNIQUE: Helically acquired images were obtained of the abdomen and pelvis with intravenous contrast. This CT exam was performed using one or more of the following dose reduction techniques: automated exposure control, adjustment of the mA and/or kV according to patient size, and/or use of iterative reconstruction technique. This report was created using [employer] report generation technology. CONTRAST: Oral and amp; IV Readi-CAT and amp; 100mL Isovue-370 COMPARISON: None. FINDINGS: LOWER THORAX: Unremarkable. Lung bases are clear. No cardiomegaly. No significant pericardial effusion. ABDOMEN: LIVER: Unremarkable. Homogeneous. No focal mass. GALLBLADDER AND BILE DUCTS: Unremarkable. No calcified gallstones. No gallbladder distention or wall edema. No intra- or extrahepatic biliary ductal dilation. PANCREAS: Unremarkable. No focal cystic or solid mass. SPLEEN: Unremarkable. Normal size without focal cystic or solid mass. ADRENALS: Unremarkable. No nodules. KIDNEYS AND URETERS: Unremarkable. Normal renal size and position. No hydronephrosis. STOMACH AND BOWEL: Unremarkable. No stomach or bowel distention. No focal inflammatory change. PELVIS: APPENDIX: No evidence of acute appendicitis. BLADDER: Unremarkable. REPRODUCTIVE: Unremarkable as visualized. No mass. ABDOMEN and PELVIS: INTRAPERITONEAL SPACE: Unremarkable. No ascites or other fluid collection. No free air. BONES/JOINTS: Unremarkable. No suspicious lytic or blastic abnormality. SOFT TISSUES: Unremarkable. No discrete abdominal or pelvic wall hernia. VASCULATURE: Unremarkable. Abdominal aorta is non-dilated. LYMPH NODES: Unremarkable. No enlarged lymph nodes. CT/Abdomen/Pelvis WITH Contrast IMPRESSION: Negative CT of the abdomen and pelvis with intravenous contrast. Electronically Signed: Rodger Sun MD at 19:03 [facility] ,
== END | disposition home or self-care (01) ==
LOC: CT 18:20
PROVIDERS: PCP Internal Medicine; Visit Provider Nurse Practitioner Adult Health
DX: R10.30 Lower abdominal pain, unspecified (principal)
CPT/HCPCS: 74177; Q9967

== ENCOUNTER 2023-01-27 10:45 | Day surgery (SDC) | payer BC, SELFPAY ==
[2023-01-27 11:23] LABS: Internal QC Validated? YES +Cl - CLEAR BKGD; Pregnancy, Urine Negative Negative
[2023-01-27 11:31] VITALS: BP 113/75; PULSE 88; RESP 16; TEMP 36.4; O2SAT 98; BMI 36.6
[2023-01-27] MEDS: Lactated Ringers 1,000 ML 15 ML IV (11:31)
--- NOTE | 2023-01-27 11:45 | HP.PCM_ITS ---
History and Physical Date of Admission: 01/27/23 7 F who presents to the office today to establish for chronic lower abdominal pain, iron deficiency anemia, GERD Chronic abd pain--across lower abd, no triggers. Gets cramps, sharp pains. Can get sharp pain from LLQ up left side of abd when she needs to have BM, can be normal stool. Has 3-4 BMs or more per day. Can be formed or can be loose or watery. Can have constipation from iron supplement, taking it QOD now. And takes magnesium for migraines, so that helps with the constipation from iron.? But other than the iron she does not tend to have constipation. No nocturnal BMs. Gas and bloating. Ibuprofen helps, but more with endometriosis pain. Heating pad helps the intestinal pains. GERD -- esomeprazole 40 mg daily, breakthrough heartburn when lying down. EGD in [address] Santoyo. No prior colonoscopy. Some nausea in the mornings, no vomiting. No dysphagia. Omeprazole used to be effective, then suddenly no longer helped in 2020, so switched to esomeprazole. Also started Plaquenil at about the same time. Sees a sterilization tech in [facility] Dr Garvin, diagnosis of inflammatory polyarthropathy, inflammatory markers high, no joint damage. Since that time her upper abd pain resolved. Joint and muscle pains are a lot better. Asthma symptoms also improved. Changing from celexa to cymbalta resolved her neuro symptoms of weakness/falling over and numbness. Iron deficiency anemia --despite not having menses.? Currently taking iron supplement, typically every other day in order to minimize constipation. 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 [employer] Constitutional: Positive for fatigue and weight change; No fever(s), frequent falls or headache(s) ENT ENT: No headache(s) or difficulty swallowing Cardio Cardiology: Positive for leg pain with exertion Gastro GI: Positive for abdominal pain and heartburn; No bloating, change in bowel habits, constipation, diarrhea, difficulty s wallowing, Vomiting blood/hematemesis, Blood in stool, nausea/dyspepsia or vomiting Musc Musculoskeletal: Positive for joint pain, back pain, muscle cramps, leg pain at night and leg pain with exertion; No abnormal gait, joint swelling, muscle weakness, numbness, stiffness, tingling, Arthritis or sciatica Skin Skin: Positive for dry skin and itchy eyes; No lesions or rash Neuro Neurology: No abnormal gait, dizziness, frequent falls, headache(s), numbness, tingling, tremor(s), Increased tone in limbs, paralysis or seizures Psych Psychiatric: No anxiety, No depression, No paranoia, No Behavioral Problems, No Compulsive Behavior, No hyperactivity, No inattentiveness, No obsessions/compulsions, No Temper Tantrums and No suicidal ideation Endo Endocrine: Positive for fatigue and weight change Aller/Imm Allergy/Immunologic: Positive for itchy eyes Sourav/Lymp Hematologic/Lymphatic: Positive for easy bruising; No easy bleeding Exam Const General: cooperative and comfortable Nutritional Appearance: obese Orientation: alert, awake and oriented x3 HENMT Head: normal to inspection Eyes Sclera: sclerae normal Resp Effort & Inspection: normal respiratory effort GI Inspection: normal to inspection Palpation: soft, no hepatosplenomegaly, no masses and tender (generalized) Skin General: no jaundice Neuro Gait: normal gait Psych Mood: euthymic mood Quality Reporting Tobacco Screening ([facility] 138) Smoking Status: Never smoker Assessment and Plan Assessment and Plan (1) Lower abdominal pain: ?Status:?Chronic ?Plan: 37 yr old female with chronic lower abdominal pain, frequent BMs often diarrhea, GERD, anemia. Comorbidities include inflammatory polyarthropathy, endometriosis. DDx includes IBD, IBS, bile acid reflux/diarrhea Biochemical eval EGD and colonoscopy, f/u in office 2 wks later to discuss findings Consider capsule endoscopy based on lab results Consider if CT enterography or MR enterography is needed based on lab results Will send her portal msg with results and plan (2) Anemia: ?Status:?Chronic ?Plan: Iron deficiency despite no menses, will check labs today, endoscopies as above (3) GERD (gastroesophageal reflux disease): ?Status:?Chronic ?Plan: Continue esomeprazole 40 mg daily, endoscopy as above ? ? ? Orders: Orders Comprehensive Metabolic Profil 11/24/22 D64.9 - Anemia, unspecified, K2 1.9 - Gastro-esophageal reflux disease without esophagitis, R10.30 - Lower abdominal pain, unspecified ? CRP 11/24/22 D64.9 - Anemia, unspecified, K2 1.9 - Gastro-esophageal reflux disease without esophagitis, R10.30 - Lower abdominal pain, unspecified ? LDH 11/24/22 D64.9 - Anemia, unspecified, K2 1.9 - Gastro-esophageal reflux disease without esophagitis, R10.30 - Lower abdominal pain, unspecified ? CBC W/Diff, Automated 11/24/22 D64.9 - Anemia, unspecified, K2 1.9 - Gastro- esophageal reflux disease without esophagitis, R10.30 - Lower abdominal pain, unspecified ? Erythrocyte Sed Rate 11/24/224.9 - Anemia, unspecified, K2 1.9 - Gastro- esophageal reflux disease without esophagitis, R10.30 - Lower abdominal pain, unspecified ? AIDEN Comprehensive Panel 11/24/224.9 - Anemia, unspecified, K2 1.9 - Gastro- esophageal reflux disease without esophagitis, R10.30 - Lower abdominal pain, unspecified ? Calprotectin, Stool 11/24/22 D64.9 - Anemia, unspecified, K2 1.9 - Gastro- esophageal reflux disease without esophagitis, R10.30 - Lower abdominal pain, unspecified ? Stool Lactoferrin/WBC 11/24/224.9 - Anemia, unspecified, K2 1.9 - Gastro- esophageal reflux disease without esophagitis, R10.30 - Lower abdominal pain, unspecified ? ANCA 11/24/224.9 - Anemia, unspecified, K2 1.9 - Gastro-esophageal reflux disease without esophagitis, R10.30 - Lower abdominal pain, unspecified ? Celiac Disease Profile 11/24/224.9 - Anemia, unspecified, K2 1.9 - Gastro- esophageal reflux disease without esophagitis, R10.30 - Lower abdominal pain, unspecified ? Immunoglobulins G/A/M/E 11/24/224.9 - Anemia, unspecified, K2 1.9 - Gastro- esophageal reflux disease without esophagitis, R10.30 - Lower abdominal pain, unspecified ? JANELLE + Protein Elect, Serum 11/24/224.9 - Anemia, unspecified, K2 1.9 - Gastro- esophageal reflux disease without esophagitis, R10.30 - Lower abdominal pain, unspecified ? Ferritin 11/24/22 D64.9 - Anemia, unspecified ? Iron+Iron Binding Capacity 11/24/22 D64.9 - Anemia, unspecified ? Miscellaneous Lab Procedure 11/24/22 D64.9 - Anemia, unspecified, R1 0.30 - Lower abdominal pain, unspecified ? Medications: Discontinued amoxicillin-pot clavulanate 875-125 mg ?? Discontinued Reason:? Pt no longer taking 1 TAB? PO BID 20 tabs 0RF ? ? I have examined the patient and the H&P has been reviewed. There are no clinical changes since date of exam.
--- NOTE | 2023-01-27 12:00 | IMM_PTH ---
PATIENT: JOSEPH KHAN LOC: EN U#:[id number] AGE/SX: 37/F ROOM: RE01/27/[address]: Dr. Nguyễn Hyatt DO : 1985 BED: DIS: 01/27/2023 SPEC #: [id number] RECD: 01/28/23 12:35 STATUS: NAKUL REZulay #: [id number] SERINA: 01/27/23 12:[address]: Nguyễn Hyatt DEPT: IMMUNOHISTOCHEMISTRY RECD BY: Beth Cortez ENTERED: 01/28/23 12:36 SP TYPE: IMMUNO OTHR DR: Dr. Dianna Kraus MD Tissues: A - Stomach, NOS Procedures: H Pylori (initial) PHYSICIAN & INSTITUTION [place] [id number] SPECIMEN INFORMATION: Tissue Source: A ? Gastric ulcer biopsy Clinical Info: Abdominal pain, GERD, anemia Specimen Number: [id number] CPT code: 98366 METHODOLOGY: Deparaffinized sections of prefer/formalin-fixed tissue or PAP/DQ stained slides are incubated with monoclonal/polyclonal antibodies/oligonucleotide probes. Localization is made via biotin free immunoperoxidase method. Appropriate controls are performed and reacted as expected. Results on target cell population are indicated in the following table: RESULTS: ANTIBODY / CLONE RESULT Block A H Pylori (polyclonal) negative These tests were developed and their performance characteristics determined by [facility]. They may not have been cleared or approved by the U.S. Food and Drug Administration. The FDA has determined that such clearance or approval is not necessary. The above immunohistochemical/dualISH markers are ordered and reviewed by the Pathologist. INTERPRETATION: A. Gastric ulcer, biopsy: Negative for Helicobacter pylori organisms. PATRICIA:amrco 01/29/2023
--- NOTE | 2023-01-27 12:00 | EGD_PTH ---
PATIENT: JOSEPH KHAN LOC: EN U#:[id number] AGE/SX: 37/F ROOM: RE01/27/[address]: Dr. Nguynễ Hyatt DO : 1985 BED: DIS: 01/27/2023 SPEC #: [id number] RECD: 01/27/23 13:32 STATUS: NAKUL ARACELY #: [id number] SERINA: 01/27/23 12:[address]: Nguyễn Hyatt DEPT: SURGICAL PATHOLOGY RECD BY: Zoë Yarbrough ENTERED: 01/28/23 09:52 SP TYPE: EGD BIOPSY [facility] DR: Dr. Dianna Kraus MD Tissues: A - Gastric mucous membrane B - Duodenum, NOS C - Sigmoid colon biopsy D - Ileum, NOS E - COLON BIOPSY F - Sigmoid colon biopsy Procedures: Special Stain Group II Surgery Specimen Level IV Alcian Blue/PAS (control) HEADER OPERATION: Colonoscopy, EGD (MAC), biopsy, polypectomy PRE-OP DIAGNOSIS: Abdominal pain, GERD, anemia TISSUE SUBMITTED: A ? Gastric ulcer biopsy, B ? Duodenum biopsy, C ? Sigmoid colon polyp, D ? Terminal ileum biopsy, E ? Random colonic biopsies, F ? Sigmoid colon biopsy MICROSCOPIC DIAGNOSIS A. Gastric ulcer, biopsy: Mild gastritis. See microscopic description and comment. B. Duodenum, biopsy: Fragments of duodenal mucosa, no pathologic diagnosis. C. Sigmoid colon polyp, biopsy: Fragments of hyperplastic polyp. See comment. D. Terminal ileum, biopsy: Fragments of small intestinal mucosa, no pathologic diagnosis. E. Colon, random biopsy: Fragments of colonic mucosa, no pathologic diagnosis. F. Sigmoid colon, biopsy: Focal acute colitis. See comment. SJ:marco 01/29/2023 COMMENT A. The results of immunohistochemistry for Helicobacter pylori will be reported separately ([id number]). Alcian blue/PAS stain with matched control is used in the evaluation of the specimen. C. A few minute fragments of duodenal mucosa are also noted mostly represent contaminant. F. Focal minimal cryptitis is noted. Crypt abscesses, glandular distortion or granulomas are not seen. Correlation with clinical, endoscopic findings and appropriate follow up are necessary. MICROSCOPIC DESCRIPTION Slides are reviewed. A. The specimen shows fragments of gastric mucosa with chronic inflammatory cell infiltrates in the lamina propria consisting of lymphocytes and plasma cells, consistent with mild chronic gastritis. Focal intestinal metaplasia (goblet cell metaplasia) is noted. GROSS DESCRIPTION A - Received in fixative is one container labeled with the patient's name and designated gastric ulcer biopsy. The specimen consists of one irregular fragment of light barros soft tissue that measures 0.3 x 0.3 x 0.1 cm. The specimen is totally submitted in one cassette. B - Received in fixative is one container labeled with the patient's name and designated duodenum biopsy. The specimen consists of two irregular fragments of light barros soft tissue that in aggregate measure 0.6 x 0.3 x 0.1 cm. The specimen is totally submitted in one cassette. C - Received in fixative is one container labeled with the patient's name and designated sigmoid colon polyp. The specimen consists of multiple irregular fragments of light barros soft tissue that in aggregate measure 1.0 x 0.5 x 0.1 cm. The specimen is totally submitted in one cassette. D - Received in fixative is one container labeled with the patient's name and designated terminal ileum biopsy. The specimen consists of two irregular fragments of light barros soft tissue that in aggregate measure 1.0 x 0.3 x 0.1 cm. The specimen is totally submitted in one cassette. E - Received in fixative is one container labeled with the patient's name and designated random colon biopsy. The specimen consists of multiple irregular fragments of light barros soft tissue that in aggregate measure 2.0 x 0.3 x 0.1 cm. The specimen is totally submitted in one cassette. F - Received in fixative is one container labeled with the patient's name and designated sigmoid colon biopsy. The specimen consists of two irregular fragments of light barros soft tissue that in aggregate measure 0.6 x 0.3 x 0.1 cm. The specimen is totally submitted in one cassette. / PATRICIA:marco 01/28/2023 TC:2 CPT: 43757 x6, 46714
[2023-01-27 13:00] VITALS: BP 110/68; BP 113/75; PULSE 84; RESP 16; TEMP 36.4; O2SAT 96
[2023-01-27 13:05] VITALS: BP 113/75; BP 97/63; PULSE 82; RESP 16; O2SAT 96
--- NOTE | 2023-01-27 13:05 | OP.EGD_ITS ---
Patient Name: Michelle Quinteros Procedure Date: 01/27/2023 12:25 PM Date of : 1985 Age: 37 Procedure: Upper GI endoscopy Indications: Epigastric abdominal pain, Iron deficiency anemia, Functional Dyspepsia Providers: Nguyễn Hyatt DO Medicines: Monitored Anesthesia Care Patient Profile: This is a 37 year old female. Refer to note in patient chart for documentation of history and physical. Patient has symptoms of acute abdominal cramping and chronic epigastric abdominal pain. Complications: No immediate complications. Procedure: Pre-Anesthesia Assessment: - Prior to the procedure, a History and Physical was performed, and patient medications and allergies were reviewed. The risks and benefits of the procedure and the sedation options and risks were discussed with the patient. All questions were answered and informed consent was obtained. Patient identification and proposed procedure were verified by the physician. Mental Status Examination: alert and oriented. Airway Examination: normal oropharyngeal airway and neck mobility. Respiratory Examination: clear to auscultation. CV Examination: normal. Prophylactic Antibiotics: The patient does not require prophylactic antibiotics. Prior Anticoagulants: The patient has taken no previous anticoagulant or antiplatelet agents. After reviewing the risks and benefits, the patient was deemed in satisfactory condition to undergo the procedure. The anesthesia plan was to use monitored anesthesia care (MAC). Immediately prior to administration of medications, the patient was re-assessed for adequacy to receive sedatives. The heart rate, respiratory rate, oxygen saturations, blood pressure, adequacy of pulmonary ventilation, and response to care were monitored throughout the procedure. The physical status of the patient was re-assessed after the procedure. After obtaining informed consent, the endoscope was passed under direct vision. Throughout the procedure, the patient's blood pressure, pulse, and oxygen saturations were monitored continuously. The Colonoscope was introduced through the mouth, and advanced to the second part of duodenum. The upper GI endoscopy was accomplished without difficulty. The patient tolerated the procedure well. Scope In: 12:35:21 PM Scope Out: 12:38:02 PM Total Procedure Duration Time 0 hours 2 minutes 41 seconds Findings: The Z-line was irregular and was found 38 cm from the incisors. Biopsies were taken with a cold forceps for histology. Verification of patient identification for the specimen was done. Estimated blood loss was minimal. Two oozing cratered gastric ulcers with pigmented material were found in the gastric antrum. The largest lesion was 6 mm in largest dimension. Coagulation for hemostasis using heater probe was successful. Biopsies were taken with a cold forceps for histology. Verification of patient identification for the specimen was done. Biopsies were taken with a cold forceps for Helicobacter pylori testing. Localized mild inflammation characterized by erosions was found in the gastric body. Biopsies were taken with a cold forceps for histology. Verification of patient identification for the specimen was done. Estimated blood loss was minimal. The second portion of the duodenum was normal. Biopsies were taken with a cold forceps for histology. Verification of patient identification for the specimen was done. Estimated blood loss was minimal. Impression: - Z-line irregular, 38 cm from the incisors. Biopsied. - Oozing gastric ulcers with pigmented material. Treated with a heater probe. Biopsied. - Bile gastritis. Biopsied. - Normal second portion of the duodenum. Biopsied. Recommendation: - Discharge patient to home. - Resume previous diet. - Continue present medications. - Await pathology results. - Repeat upper endoscopy in 6 months for surveillance. Procedure Code(s): --- Professional --- 49480, 59, Esophagogastroduodenoscopy, flexible, transoral; with control of bleeding, any method 03542, Esophagogastroduodenoscopy, flexible, transoral; with biopsy, single or multiple CPT copyright 2017 [employer]. All rights reserved. The codes documented in this report are preliminary and upon proposal manager review may be revised to meet current compliance requirements. Nguyễn Hyatt DO 01/27/2023 1:05:05 PM This report has been signed electronically. Number of Addenda: 0 Note Initiated On: 01/27/2023 12:25 PM
--- NOTE | 2023-01-27 13:06 | OP.CCLET_ITS ---
01/27/2023 Dianna Kraus MD [address] [place] [address] [place] [address] Re : Upper GI endoscopy procedure for Michelle Quinteros Dear Dr. Kraus This procedure was performed on Friday, January 27, 2023. My impressions and recommendations are as follows: Impressions : - Z-line irregular, 38 cm from the incisors. Biopsied. - Oozing gastric ulcers with pigmented material. Treated with a heater probe. Biopsied. - Bile gastritis. Biopsied. - Normal second portion of the duodenum. Biopsied. Recommendations : - Discharge patient to home. - Resume previous diet. - Continue present medications. - Await pathology results. - Repeat upper endoscopy in 6 months for surveillance. My findings are described in the full procedure note, which is enclosed. If I can be of further assistance, please feel free to contact me at . Sincerely, Nguyễn Friend, 01/27/2023 1:05:05 PM This report has been signed electronically.
--- NOTE | 2023-01-27 13:09 | OP.COLON_ITS ---
Patient Name: Michelle Quinteros Procedure Date: 01/27/2023 12:38 PM Date of : 1985 Age: 37 Procedure: Colonoscopy Indications: This is the patient's first colonoscopy Providers: Nguyễn Hyatt DO Medicines: Monitored Anesthesia Care Patient Profile: This is a 37 year old female. Refer to note in patient chart for documentation of history and physical. Patient has symptoms of acute abdominal cramping and chronic epigastric abdominal pain. Last Colonoscopy: none. The patient's first colonoscopy is today. Complications: No immediate complications. Procedure: Pre-Anesthesia Assessment: - Prior to the procedure, a History and Physical was performed, and patient medications and allergies were reviewed. The risks and benefits of the procedure and the sedation options and risks were discussed with the patient. All questions were answered and informed consent was obtained. Patient identification and proposed procedure were verified by the physician. Mental Status Examination: alert and oriented. Airway Examination: normal oropharyngeal airway and neck mobility. Respiratory Examination: clear to auscultation. CV Examination: normal. Prophylactic Antibiotics: The patient does not require prophylactic antibiotics. Prior Anticoagulants: The patient has taken no previous anticoagulant or antiplatelet agents. After reviewing the risks and benefits, the patient was deemed in satisfactory condition to undergo the procedure. The anesthesia plan was to use monitored anesthesia care (MAC). Immediately prior to administration of medications, the patient was re-assessed for adequacy to receive sedatives. The heart rate, respiratory rate, oxygen saturations, blood pressure, adequacy of pulmonary ventilation, and response to care were monitored throughout the procedure. The physical status of the patient was re-assessed after the procedure. After I obtained informed consent, the scope was passed under direct vision. Throughout the procedure, the patient's blood pressure, pulse, and oxygen saturations were monitored continuously. The Colonoscope was introduced through the anus and advanced to the terminal ileum. The colonoscopy was performed without difficulty. The patient tolerated the procedure well. The quality of the bowel preparation was good. Scope In: 12:39:57 PM Scope Withdrawal Time 0 hours 11 minutes 2 seconds Scope Out: 12:56:17 PM Total Procedure Duration Time 0 hours 16 minutes 20 seconds Findings: The perianal and digital rectal examinations were normal. A 9 mm polyp was found in the sigmoid colon. The polyp was sessile. The polyp was removed with a hot snare. Resection and retrieval were complete. Verification of patient identification for the specimen was done. Estimated blood loss was minimal. Localized mild inflammation characterized by congestion (edema) and erythema was found in the sigmoid colon. Biopsies were taken with a cold forceps for histology. Verification of patient identification for the specimen was done. Estimated blood loss was minimal. The terminal ileum appeared normal. Biopsies were taken with a cold forceps for histology. Verification of patient identification for the specimen was done. Estimated blood loss was minimal. Impression: - One 9 mm polyp in the sigmoid colon, removed with a hot snare. Resected and retrieved. - Localized mild inflammation was found in the sigmoid colon secondary to colitis. Biopsied. - The examined portion of the ileum was normal. Biopsied. Recommendation: - Discharge patient to home. - Resume previous diet. - Continue present medications. - Await pathology results. - Repeat colonoscopy in 5 years for surveillance. - Return to GI office. Procedure Code(s): --- Professional --- 74866, Colonoscopy, flexible; with removal of tumor(s), polyp(s), or other lesion(s) by snare technique 32250, 59, Colonoscopy, flexible; with biopsy, single or multiple CPT copyright 2017 [employer]. All rights reserved. The codes documented in this report are preliminary and upon inpatient coder review may be revised to meet current compliance requirements. Nguyễn Hyatt DO 01/27/2023 1:09:44 PM This report has been signed electronically. Number of Addenda: 0 Note Initiated On: 01/27/2023 12:38 PM
[2023-01-27 13:10] VITALS: BP 101/66; BP 113/75; PULSE 80; RESP 16; O2SAT 96
--- NOTE | 2023-01-27 13:10 | OP.CCLET_ITS ---
01/27/2023 Dianna Kraus MD [address] [place] [address] [place] [address] Re : Colonoscopy procedure for Michelle Quinteros Dear Dr. Kraus This procedure was performed on Friday, January 27, 2023. My impressions and recommendations are as follows: Impressions : - One 9 mm polyp in the sigmoid colon, removed with a hot snare. Resected and retrieved. - Localized mild inflammation was found in the sigmoid colon secondary to colitis. Biopsied. - The examined portion of the ileum was normal. Biopsied. Recommendations : - Discharge patient to home. - Resume previous diet. - Continue present medications. - Await pathology results. - Repeat colonoscopy in 5 years for surveillance. - Return to GI office. My findings are described in the full procedure note, which is enclosed. If I can be of further assistance, please feel free to contact me at . Sincerely, Nguyễn Friend, 01/27/2023 1:09:44 PM This report has been signed electronically.
[2023-01-27 13:15] VITALS: BP 100/64; BP 113/75; PULSE 78; RESP 16; TEMP 36.6; O2SAT 97
[2023-01-27 13:34] VITALS: BP 113/75
== END 2023-01-27 13:46 | disposition home or self-care (01) ==
LOC: EN 10:45 → AC 10:47
PROVIDERS: Anesthesiology; PCP Internal Medicine; Referring Provider Internal Medicine; Visit Provider Internal Medicine Gastroenterology
PROC: 0DJD8ZZ Inspection of Lower Intestinal Tract, Via Natural or Artificial Opening Endoscopic (ICD-10-PCS; CPT 45378; principal; 2023-01-27 11:55)
DX: K31.89 Other diseases of stomach and duodenum (principal); K63.89 Other specified diseases of intestine; K52.9 Noninfective gastroenteritis and colitis, unspecified; K63.5 Polyp of colon; K25.9 Gastric ulcer, unspecified as acute or chronic, without hemorrhage or perforation; K30 Functional dyspepsia; K29.70 Gastritis, unspecified, without bleeding; E61.1 Iron deficiency; D64.9 Anemia, unspecified; G89.29 Other chronic pain; E66.9 Obesity, unspecified; K21.9 Gastro-esophageal reflux disease without esophagitis; J45.909 Unspecified asthma, uncomplicated; G47.33 Obstructive sleep apnea (adult) (pediatric); Z79.899 Other long term (current) drug therapy
CPT/HCPCS: 45380; 45385; 43239; 43255; 81025; 88305; 88313; 88342; J7120; J2405

== ENCOUNTER → 2023-04-29 | Outpatient (CLI) | payer BC, SELFPAY ==
[2023-04-29 12:47] LABS: Absolute Lymphocyte Count 2.77 X10^3/uL (0.83-4.51); Absolute Neutrophil Count 6.1 X10^3/uL (2.0-7.7); Basophil# 0.06 X10^3/uL; Basophil% 0.6 % (0-1); Eosinophil# 0.32 X10^3/uL; Eosinophils% 3.3 % (0-5); Hematocrit 43.5 % (37-47); Hemoglobin 13.3 g/dL (12.0-15.0); Lymphocyte # 2.77 X10^3/ul (0.83-4.51); Lymphocyte % 28.3 % (19-41); Mean Corp Hgb Conc 30.6 g/dL (32-36); Mean Corpuscular Hgb 26.4 pg (27.0-32.0); Mean Corpuscular Volume 86.5 fL (81-99); Monocyte# 0.48 X10^3/uL; Monocyte% 4.9 % (0-10); NRBC Flagged by Analyzer 0 % (0-5); Neutrophil # 6.13 X10^3/uL (2.7-7.7); Neutrophil % 62.6 % (47-70); Platelet Count 259 K/mm3 (150-450); RBC Distribution Width CV 14.6 % (11.6-14.6); RBC Distribution Width SD 46.2 fl (35.1-43.9); Red Blood Count 5.03 M/mm3 (4.2-5.4); White Blood Count 9.8 K/mm3 (4.4-11.0)
[2023-04-29 13:16] LABS: Ferritin 182 ng/mL (8-252); Iron 50 ug/dL (50-170); Iron Binding Capacity,Total 459 ug/dL (250-450); PERCENT IRON SATURATION 10.9 % (15.0-55.0)
[2023-05-05 00:06] LABS: Clam <0.10 kU/L (Class 0); Codfish <0.10 kU/L (Class 0); Corn <0.10 kU/L (Class 0); Egg, White <0.10 kU/L (Class 0); Milk (Cow) <0.10 kU/L (Class 0); Peanut <0.10 kU/L (Class 0); SCALLOP <0.10 kU/L (Class 0); SESAME SEED <0.10 kU/L (Class 0); Shrimp <0.10 kU/L (Class 0); Soybean <0.10 kU/L (Class 0); Walnut, (Food) <0.10 kU/L (Class 0); Wheat <0.10 kU/L (Class 0)
[2023-05-08 21:07] LABS: Calprotectin, Stool 75 ug/g (0-120)
== END | disposition home or self-care (01) ==
LOC: LAB 12:12 → LABSPEC 13:35
PROVIDERS: PCP Internal Medicine; Referring Provider Nurse Practitioner Adult Health; Visit Provider Nurse Practitioner Adult Health
DX: D50.9 Iron deficiency anemia, unspecified (principal); K25.9 Gastric ulcer, unspecified as acute or chronic, without hemorrhage or perforation; K29.60 Other gastritis without bleeding; K58.9 Irritable bowel syndrome, unspecified; Z91.018 Allergy to other foods
CPT/HCPCS: 82728; 83540; 83550; 83630; 83993; 85025; 86003

== ENCOUNTER → 2023-07-05 | Outpatient (CLI) | payer BC, SELFPAY ==
[2023-07-08 15:08] LABS: Calprotectin, Stool 52 ug/g (0-120)
[2023-07-09 14:10] LABS: Pancreatic Elastase, Fecal 179 (>200)
== END | disposition home or self-care (01) ==
PROVIDERS: PCP Internal Medicine; Referring Provider Internal Medicine Gastroenterology; Visit Provider Internal Medicine Gastroenterology
DX: K58.9 Irritable bowel syndrome, unspecified (principal); R19.7 Diarrhea, unspecified
CPT/HCPCS: 82653; 83630; 83993; 87177; 87209; 87329; 87493; 87506

== ENCOUNTER 2023-07-13 16:00 | Outpatient (RCR) | payer BC, SELFPAY | END 2023-07-15 23:59 | LOC: NS 16:00 | PROVIDERS: PCP Internal Medicine; Referring Provider Internal Medicine; Visit Provider Internal Medicine | DX: Z71.3 Dietary counseling and surveillance (principal); E66.9 Obesity, unspecified; Z68.37 Body mass index [BMI] 37.0-37.9, adult | CPT/HCPCS: 97802; 97803 ==

== ENCOUNTER 2023-08-12 16:09 | Outpatient (RCR) | payer BC, SELFPAY | END 2023-08-14 23:59 | LOC: NS 16:09 | PROVIDERS: PCP Internal Medicine; Referring Provider Internal Medicine; Visit Provider Internal Medicine | DX: Z71.3 Dietary counseling and surveillance (principal); E66.9 Obesity, unspecified | CPT/HCPCS: 97803 ==

== ENCOUNTER 2023-08-23 08:12 | Day surgery (SDC) | payer BC, SELFPAY ==
[2023-08-23 08:47] LABS: Internal QC Validated? YES +Cl - CLEAR BKGD; Pregnancy, Urine Negative Negative
[2023-08-23 08:48] VITALS: BP 99/66; PULSE 83; RESP 16; TEMP 36.6; O2SAT 98; BMI 37.5
[2023-08-23] MEDS: Lactated Ringers 1,000 ML 15 ML IV (08:53)
--- NOTE | 2023-08-23 08:57 | HP.PCM_ITS ---
History and Physical Date of Admission: 08/23/23 37 F who presents to the office today for 3 month f/u GERD, anemia, nausea, gastric ulcers, bile gastritis. Lots of heartburn, reflux. Still taking esomeprazole BID. Feels like food sits in stomach then comes back up. Feels full quickly, bloated, nausea. Gastric emptying study a couple of years ago was normal per pt. Hasn't done stool tests for inflammation yet ( accidentally threw away the containers). Only occas left sided abd pain lately. Bowels have been ok. Getting stool tests for inflammation done. Blood inflammatory markers are high from inflammatory polyarthropathy. IBD lab panel negative. She has colitis in sigmoid colon on bx. EGD and colonoscopy which were indicated for chronic lower abdominal pain, frequent BMs often diarrhea, GERD, anemia. On EGD she had oozing gastric ulcers and bile gastritis, negative H pylori. On colonoscopy she had a 9 mm hyperplas tic polyp, focal acute colitis in the sigmoid colon. Dr Hyatt recommends repeat EGD in 6 mos, repeat colonoscopy in 5 yrs. She has inflammatory polyarthropathy, is on plaquenil. 11/2022 labs: not suggestive of IBD hgb 11.6 esr 31 iron 28 alk phos 123 crp 6.4 12/2022 CT abd pel w/ oral and IV neg ROS Const Constitutional: Positive for fatigue ENT ENT: No difficulty swallowing Gastro GI: Positive for bloating, heartburn, excessive flatus and nausea/dyspepsia; No abdominal pain, belching, change in bowel habits, change in stool character, coffee ground emesis, constipation, cramping, diarrhea, difficulty swallowing, feeling full early, incontinent of stools, Vomiting blood/hematemesis, Blood in stool, loose stools, Black,tarry stools, pain with swallowing, vomiting or other Musc Musculoskeletal: Positive for back pain and stiffness; No joint pain Skin Skin: No yellowing of the eye or itchy eyes Psych Psychiatric: No anxiety and No depression Endo Endocrine: Positive for fatigue Aller/Imm Allergy/Immunologic: No itchy eyes Sourav/Lymp Hematologic/Lymphatic: Positive for easy bruising; No easy bleeding Exam Const General: cooperative and comfortable Orientation: alert, awake and oriented x3 Quality Reporting Tobacco Screening ([facility] 138) Smoking Status: Never smoker Assessment and Plan Assessment and Plan (1) Nausea & vomiting: Status: Chronic Plan: Colestipol 1-2 g mid day to bind bile Repeat EGD per Dr Hyatt's recommendation because of gastric ulcers Food allergy testing (vomits with eggs and bananas) (2) Anemia: Status: Chronic Qualifiers: Anemia type: iron deficiency Iron deficiency anemia type: unspecified iron deficiency Qualified Code(s): D50.9 - Iron deficiency anemia, unspecified Plan: Update labs, feeling very tired again, no labs since iron infusion (3) Gastric ulcer: Status: Acute Plan: as above (4) Allergy, food: Status: Acute Plan: as above Orders: Orders CBC W/Diff, Automated Today D50.9 - Iron deficiency anemia, unspecified, K25.9 - Gastric ulcer, unspecified as acute or chronic, without hemorrhage or perforation, K29.60 - Other gastritis without bleeding Iron+Iron Binding Capacity Today D50.9 - Iron deficiency anemia, unspecified, K25.9 - Gastric ulcer, unspecified as acute or chronic, without hemorrhage or perforation, K29.60 - Other gastritis without bleeding Ferritin Today D50.9 - Iron deficiency anemia, unspecified, K25.9 - Gastric ulcer, unspecified as acute or chronic, without hemorrhage or perforation, K29.60 - Other gastritis without bleeding Stool Lactoferrin/WBC Today D50.9 - Iron deficiency anemia, unspecified, K25.9 - Gastric ulcer, unspecified as acute or chronic, without hemorrhage or perforation, K29.60 - Other gastritis without bleeding, K58.9 - Irritable bowel syndrome without diarrhea Calprotectin, Stool Today D50.9 - Iron deficiency anemia, unspecified, K25.9 - Gastric ulcer, unspecified as acute or chronic, without hemorrhage or perforatio n, K29.60 - Other gastritis without bleeding Miscellaneous Lab Procedure Today R11.2 - Nausea with vomiting, unspecified, Z91.018 - Allergy to other foods Medications: New colestipol avoid other medications 1 hour prior to colestipol and 4 hours after colestipol 2 grams (2 x 1 gram) PO DAILY 180 tabs 3RF Discontinued prednisone administer with food or milk Discontinued Reason: Pt no longer taking 60 mg (3 x 20 mg) PO QDAY 15 tabs 0RF sulfamethoxazole-trimethoprim 800-160 mg (Bactrim DS) Discontinued Reason: Pt no longer taking 1 TAB PO BID 10 tabs 0RF I have examined the patient and the H&P has been reviewed. There are no clinical changes since date of exam.
--- NOTE | 2023-08-23 09:30 | IMM_PTH ---
PATIENT: JOSEPH KHAN LOC: EN U#:[id number] AGE/SX: 38/F ROOM: RE08/23/[address]: Dr. Nguyễn Hyatt DO : 1985 BED: DIS: 08/23/2023 SPEC #: [id number] RECD: 08/24/23 12:17 STATUS: NAKUL REQ #: [id number] SERINA: 08/23/23 09:[address]: Nguyễn Hyatt DEPT: IMMUNOHISTOCHEMISTRY RECD BY: Beth Cortez ENTERED: 08/24/23 12:18 SP TYPE: IMMUNO OTHR DR: Dr. Dianna Kraus MD Tissues: A - Stomach, NOS Procedures: H Pylori (initial) PHYSICIAN & INSTITUTION [place] [id number] SPECIMEN INFORMATION: Tissue Source: A - Gastric antrum Clinical Info: Gastric ulcer Specimen Number: [id number] CPT code: 25505 METHODOLOGY: Deparaffinized sections of prefer/formalin-fixed tissue or PAP/DQ stained slides are incubated with monoclonal/polyclonal antibodies/oligonucleotide probes. Localization is made via biotin free immunoperoxidase method. Appropriate controls are performed and reacted as expected. Results on target cell population are indicated in the following table: RESULTS: ANTIBODY / CLONE RESULT Block A H Pylori (polyclonal) negative These tests were developed and their performance characteristics determined by [facility]. They may not have been cleared or approved by the U.S. Food and Drug Administration. The FDA has determined that such clearance or approval is not necessary. The above immunohistochemical/dualISH markers are ordered and reviewed by the Pathologist. INTERPRETATION: A. Gastric antrum, biopsy: Negative for Helicobacter pylori organisms. AM:marco 08/25/2023
--- NOTE | 2023-08-23 09:30 | EGD_PTH ---
PATIENT: JOSEPH KHAN LOC: EN U#:[id number] AGE/SX: 38/F ROOM: RE08/23/[address]: Dr. Nguyễn Hyatt DO : 1985 BED: DIS: 08/23/2023 SPEC #: [id number] RECD: 08/23/23 14:27 STATUS: NAKUL ARACELY #: [id number] SERINA: 08/23/23 09:[address]: Nguyễn Hyatt DEPT: SURGICAL PATHOLOGY RECD BY: Zoë Yarbrough ENTERED: 08/24/23 09:10 SP TYPE: EGD BIOPSY OT DR: Dr. Dianna Kraus MD Tissues: A - Gastric mucous membrane B - Gastric mucous membrane C - Esophagus, NOS Procedures: Special Stain Group II Surgery Specimen Level IV Alcian Blue/PAS (control) HEADER OPERATION: EGD ([facility] [place] with biopsy PRE-OP DIAGNOSIS: Gastric ulcer TISSUE SUBMITTED: A - Gastric antrum for H. pylori and path, B - Gastric body, C - Distal esophagus MICROSCOPIC DIAGNOSIS A. Gastric antrum, biopsy: Chronic gastritis. See comment. B. Gastric body, biopsy: Chronic gastritis. C. Distal esophagus, biopsy: Gastroesophageal junction with chronic inflammation. No evidence of goblet cell metaplasia. See comment. AM:marco 08/25/2023 COMMENT A. The results of immunohistochemistry for Helicobacter pylori will be reported separately ([id number]). C. Alcian blue/PAS stain with matched control supports the above diagnosis. MICROSCOPIC DESCRIPTION Slides are reviewed. GROSS DESCRIPTION A - Received in fixative is one container labeled with the patient's name and designated gastric antrum. The specimen consists of one irregular fragment of light barros soft tissue that measures 0.6 x 0.3 x 0.1 cm. The specimen is totally submitted in one cassette. B - Received in fixative is one container labeled with the patient's name and designated gastric body. The specimen consists of one irregular fragment of light barros soft tissue that measures 0.8 x 0.5 x 0.1 cm. The specimen is totally submitted in one cassette. C - Received in fixative is one container labeled with the patient's name and designated distal esophagus. The specimen consists of one irregular fragment of light barros soft tissue that measures 0.5 x 0.5 x 0.1 cm. The specimen is totally submitted in one cassette. / AM:marco 08/24/2023 TC:3 CPT: 20418 x3, 22077
--- NOTE | 2023-08-23 09:39 | OP.CCLET_ITS ---
08/23/2023 Dianna Kraus MD [address] [place] [address] [place] [address] Re : Upper GI endoscopy procedure for Michelle Quinteros Dear Dr. Kraus This procedure was performed on Wednesday, August 23, 2023. My impressions and recommendations are as follows: Impressions : - Z-line irregular, 39 cm from the incisors. Biopsied. - Chronic gastritis. Biopsied. - No gross lesions in the first portion of the duodenum. Recommendations : - Discharge patient to home. - Resume previous diet. - Continue present medications. - Await pathology results. My findings are described in the full procedure note, which is enclosed. If I can be of further assistance, please feel free to contact me at . Sincerely, Nguyễn Hyatt, 08/23/2023 9:38:12 AM This report has been signed electronically.
--- NOTE | 2023-08-23 09:39 | OP.EGD_ITS ---
Patient Name: Michelle Quinteros Procedure Date: 08/23/2023 9:22 AM Date of : 1985 Age: 38 Procedure: Upper GI endoscopy Indications: Peptic ulcer Providers: Nguyễn Hyatt DO Medicines: Monitored Anesthesia Care Patient Profile: This is a 38 year old female. Refer to note in patient chart for documentation of history and physical. Patient has symptoms of chronic epigastric abdominal pain. Complications: No immediate complications. Procedure: Pre-Anesthesia Assessment: - Prior to the procedure, a History and Physical was performed, and patient medications and allergies were reviewed. The patient is competent. The risks and benefits of the procedure and the sedation options and risks were discussed with the patient. All questions were answered and informed consent was obtained. Patient identification and proposed procedure were verified by the physician in the pre-procedure area. Mental Status Examination: alert and oriented. Airway Examination: normal oropharyngeal airway and neck mobility. Respiratory Examination: clear to auscultation. CV Examination: normal. Prophylactic Antibiotics: The patient does not require prophylactic antibiotics. Prior Anticoagulants: The patient has taken no anticoagulant or antiplatelet agents. ASA Grade Assessment: II - A patient with mild systemic disease. After reviewing the risks and benefits, the patient was deemed in satisfactory condition to undergo the procedure. The anesthesia plan was to use monitored anesthesia care (MAC). Immediately prior to administration of medications, the patient was re-assessed for adequacy to receive sedatives. The heart rate, respiratory rate, oxygen saturations, blood pressure, adequacy of pulmonary ventilation, and response to care were monitored throughout the procedure. The physical status of the patient was re-assessed after the procedure. After obtaining informed consent, the endoscope was passed under direct vision. Throughout the procedure, the patient's blood pressure, pulse, and oxygen saturations were monitored continuously. The was introduced through the mouth, and advanced to the second part of duodenum. The upper GI endoscopy was accomplished without difficulty. The patient tolerated the procedure well. Scope In: 9:31:26 AM Scope Out: 9:33:42 AM Total Procedure Duration Time 0 hours 2 minutes 16 seconds Findings: The Z-line was irregular and was found 39 cm from the incisors. Biopsies were taken with a cold forceps for histology. Verification of patient identification for the specimen was done. Estimated blood loss was minimal. Localized mild inflammation characterized by friability was found in the gastric body. Biopsies were taken with a cold forceps for histology. Verification of patient identification for the specimen was done. Biopsies were taken with a cold forceps for Helicobacter pylori testing. Verification of patient identification for the specimen was done. Estimated blood loss was minimal. No gross lesions were noted in the first portion of the duodenum. Impression: - Z-line irregular, 39 cm from the incisors. Biopsied. - Chronic gastritis. Biopsied. - No gross lesions in the first portion of the duodenum. Recommendation: - Discharge patient to home. - Resume previous diet. - Continue present medications. - Await pathology results. Procedure Code(s): --- Professional --- 76165, Esophagogastroduodenoscopy, flexible, transoral; with biopsy, single or multiple CPT copyright 2021 [employer]. All rights reserved. The codes documented in this report are preliminary and upon fruit express agent review may be revised to meet current compliance requirements. Nguyễn Hyatt DO 08/23/2023 9:38:12 AM This report has been signed electronically. Number of Addenda: 0 Note Initiated On: 08/23/2023 9:22 AM
[2023-08-23 09:40] VITALS: BP 102/60; BP 99/66; PULSE 90; RESP 16; TEMP 36.6; O2SAT 92
[2023-08-23 09:45] VITALS: BP 94/61; BP 99/66; PULSE 86; RESP 16; O2SAT 95
[2023-08-23 09:50] VITALS: BP 101/63; BP 99/66; PULSE 87; RESP 20; O2SAT 95
[2023-08-23 09:57] VITALS: BP 102/68; BP 99/66; PULSE 87; RESP 18; TEMP 36.6; O2SAT 96
[2023-08-23 10:11] VITALS: BP 99/66
== END 2023-08-23 10:16 | disposition home or self-care (01) ==
LOC: EN 08:23 → AC 08:23
PROVIDERS: Emergency Medicine; PCP Internal Medicine; Referring Provider Internal Medicine Gastroenterology; Visit Provider Internal Medicine Gastroenterology
PROC: 0DJ08ZZ Inspection of Upper Intestinal Tract, Via Natural or Artificial Opening Endoscopic (ICD-10-PCS; CPT 43235; principal; 2023-08-23 09:25)
DX: K29.50 Unspecified chronic gastritis without bleeding (principal); D50.9 Iron deficiency anemia, unspecified; K21.00 Gastro-esophageal reflux disease with esophagitis, without bleeding; J45.909 Unspecified asthma, uncomplicated; G47.33 Obstructive sleep apnea (adult) (pediatric); F32.A Depression, unspecified; F41.9 Anxiety disorder, unspecified; Z79.899 Other long term (current) drug therapy
CPT/HCPCS: 43239; 81025; 88305; 88313; 88342; J7120; J2405

== ENCOUNTER 2023-08-27 19:08 | Emergency (ER) | payer BC, SELFPAY ==
[2023-08-27 19:11] VITALS: BP 99/78; PULSE 101; RESP 16; TEMP 36.2; BMI 35.6
[2023-08-27 19:13] VITALS: BP 99/78; PULSE 101; RESP 16; TEMP 36.2
[2023-08-27] MEDS: 0.9% Normal Saline (1000mL) 1,000 ML 1000 ML IV (19:36)
[2023-08-27] MEDS: Ondansetron 4 MG/2 ML Vial IV (19:37)
[2023-08-27 20:02] LABS: Anion Gap 7 (5-15); BUN 15 mg/dL (7-18); BUN/Creat Ratio 19.2 RATIO (10-20); Calcium,Total 9.4 mg/dL (8.5-10.1); Chloride 109 mmol/L (98-107); Creatinine, Serum 0.78 mg/dL (0.55-1.02); EST Glomerular Filtration Rate 88 mL/min (>60); Est Glom Filt Rate - Afr Amer 107 mL/min (>60); Estimated Creatinine Clearance 74.52 ml/min; Glucose 99 mg/dL (74-106); Potassium 3.6 mmol/L (3.5-5.1); Sodium Level 140 mmol/L (136-145)
[2023-08-27 20:14] VITALS: BP 118/68; PULSE 82; RESP 18; O2SAT 97
--- NOTE | 2023-08-27 20:41 | EDS_ITS ---
HPI History of Present Illness Chief Complaint: Nausea/Vomiting/Diarrhea Detail of Chief Complaint: Colicky abdominal pain with nausea, vomiting and diarrhea Informant: patient Onset/Context/Timing Onset: Days (Onset August 23) Context: Sudden Onset Timing: Continuous and Waxes and wanes Quality: Colicky Location: Generalized Current Severity: Mild Maximum Severity: Moderate Worsened by: Anytime she eats or drinks anything Relieved by: Nothing Associated Symptoms Associated Symptoms: Vomiting and diarrhea Narrative Narrative: Patient is a 38-year-old woman who presents with nausea, vomiting diarrhea that started August 23 and complains of colicky generalized abdominal pain. Her symptoms are made worse anytime she attempts to drink or eat anything. She denies fever or chills. She denies chest discomfort. She denies respiratory symptoms. She denies intolerance to greasy or fried foods. She denies dysuria, frequency, urgency or hematuria. She does endorse decreased urine output and orthostatic symptoms. She also endorses dry mouth and thirst. She denies history of diabetes. She denies myalgias or arthralgias. She denies skin rash or lesions. Prior similar symptoms: Yes Recent Illness/Hospitalization: No PFSH PFS Medical History Anemia Anxiety Asthma Asthma Attention deficit disorder (ADD) in adult Back pain Bilateral foot pain CPAP (continuous positive airway pressure) dependence Depression Endometriosis Gastric reflux GERD (gastroesophageal reflux disease) History of pain when walking History of ulceration Injury of head and neck Insomnia Low iron Migraine headache Non-smoker Obesity (BMI 30-39.9) PMDD (premenstrual dysphoric disorder) Polyarthropathy Sleep apnea Wears contact lenses Wears glasses Home Medications fluticasone propionate 50 mcg/actuation nasal spray,suspension 2 spray NASAL QHS 03/30/16 [History Last Taken Unknown] magnesium oxide 400 mg (241.3 mg magnesium) tablet 400 mg PO DAILY 07/25/20 [History Last Taken Unknown] albuterol sulfate 2.5 mg/3 mL (0.083 %) solution for nebulization 2.5 mg (3 mL) inhalation Q4H PRN shortness of breath or wheezing #90 mL 09/20/20 [Rx Last Taken Unknown] hydroxychloroquine 200 mg tablet (Plaquenil) 200 mg PO BID 06/17/21 [History Last Taken Unknown] multivitamin 1 tab PO DAILY 06/17/21 [History Last Taken Unknown] B-complex with vitamin C 1 cap PO DAILY 11/10/21 [History Last Taken Unknown] elagolix 200 mg tablet (Orilissa) 200 mg PO BID #60 tabs 09/03/22 [Rx Last Taken Unknown] fluticasone 500 mcg-salmeterol 50 mcg/dose blistr powdr for inhalation (Advair Diskus) 1 inh inhalation BID #3 ea 09/08/22 [Rx Last Taken Unknown] naproxen 500 mg tablet 500 mg PO Q8H PRN Pain 01/20/23 [History Last Taken Unkn own] promethazine 25 mg tablet 25 mg PO TID PRN nausea and vomiting #30 tabs 02/05/23 [Rx Last Taken Unknown] azelastine 137 mcg (0.1 %) nasal spray aerosol 1 spray intranasal DAILY PRN ALLERGIES #30 mL 02/08/23 [Rx Last Taken Unknown] albuterol sulfate 90 mcg/actuation aerosol inhaler 2 puff inhalation Q4H PRN PRN Sob &/Or Wheezing #1 ea 03/22/23 [Rx Last Taken Unknown] sucralfate 1 gram tablet 1 g PO QAC stomach ulcers #90 tabs 03/22/23 [Rx Last Taken Unknown] colestipol 1 gram tablet 2 g (2 x 1 gram) PO DAILY #180 tabs 04/29/23 [Rx Last Taken Unknown] duloxetine 30 mg capsule,delayed release 30 mg PO BID #180 caps 07/12/23 [Rx Last Taken 08/23/23] esomeprazole magnesium 40 mg capsule,delayed release 40 mg PO BID #180 caps 07/12/23 [Rx Last Taken 08/23/23] montelukast 10 mg tablet 10 mg PO QHS #90 tabs 07/12/23 [Rx Last Taken Unknown] ondansetron 4 mg disintegrating tablet 4 mg PO Q8H #30 tabs 08/25/23 [Rx Last Taken Unknown] ondansetron 4 mg disintegrating tablet 4 mg PO Q8H PRN PRN Nausea #10 tabs 08/27/23 [Rx Last Taken Unknown] Allergy/AdvReac Type Severity Reaction Status Date / Time Penicillins Allergy Severe Hives Verified 08/27/23 19:10 lactose AdvReac Intermediate Upset Verified 08/27/23 19:10 Stomach Family History Mother Thyroid disorder Father Hyperlipidemia Grandmother Heart disease Cancer lymphoma Grandfather No problems noted. Grandfather Colon cancer Uncle Cancer lung Aunt Cancer ovarian Surgical History delivery delivered H/O adenoidectomy H/O dilation and curettage H/O laparoscopy History of tonsillectomy Hx of cholecystectomy Hx of esophagogastroduodenoscopy Social History Smoking Status: Never smoker alcohol intake: never substance use type: does not use caffeine: Yes what type of physical activity do you participate in: walking and other details: pool frequency: 3-4 times per week seatbelt use: always do you feel safe at home: Yes additional social history: Gerry Patient works at [employer] ED Constitutional Constitutional ED: Denies chills, fever(s), subjective, sweats or weight loss Eyes Eyes: Denies blurry vision, change in vision or diplopia ENT ENT ED: Denies ear pain or rhinorrhea Cardiovascular Cardiovascular: Denies chest pain or palpitations Respiratory/Chest Respiratory/Chest: Denies cough, dyspnea or dyspnea on exertion Gastrointestinal Gastrointestinal: Reports abdominal pain, diarrhea, nausea, vomiting and other Details: Detailed HPI and ; Denies melena Genitourinary Genitourinary ED: Reports other Details: Detailed HPI narrative ; Denies dysuria, hematuria or urinary frequency Musculoskeletal Musculoskeletal: Denies arthralgias or myalgias Integumentary Denies rash Neurologic Neurologic: Reports weakness; Denies headache(s) or paresthesias Endocrine Endocrinology: Denies cold intolerance or heat intolerance Hematologic/Lymphatic Hematologic/Lymphatic: Reports systems reviewed and no addt'l complaints, except as documented EXAM Physical Exam Const Vital Signs: 08/27/23 19:11 08/27/23 19:13 08/27/23 20:14 Temperature 97.1 F L 97.1 F L Temperature Source Temporal Temporal Pulse Rate 101 H 101 H 82 Respiratory Rate 16 16 18 Blood Pressure 99/78 99/78 118/68 Blood Pressure Mean 85 85 84 Pulse Ox 97 Oxygen Delivery Method Room Air 08/27/23 20:56 Temperature Temperature Source Pulse Rate 78 Respiratory Rate 16 Blood Pressure 109/59 L Blood Pressure Mean 75 Pulse Ox 98 Oxygen Delivery Method Room Air Positive well nourished, well developed and obese General Appearance ED: well developed and NAD; Negative for cyanotic, diaphoretic or pallor Nutritional Appearance: obese HEENT Reports dry mucous membranes HEENT Narrative: Is atraumatic and normocephalic. Ears are normal. Nares are patent. Posterior pharynx out erythema or exudate. Uvula is midline. Mouth ED: Yes dry mucous membranes Mouth: dry mucous membranes Eyes PERRL and EOMs intact bilaterally General Eye ED: Negative for pale conjunctiva or scleral icterus Neck no lymphadenopathy, supple and no JVD Chest Wall inspection of chest normal and palpation of chest normal Resp normal respiratory effort and clear to auscultation bilaterally Cardio regular rhythm, S1 normal heart sound, S2 normal heart sound and no murmurs Rate: tachycardic GI non-distended and no masses; Negative for non-tender or hepatosplenomegaly Auscultation: hypoactive bowel sounds Palpation: soft and tender other (Generalized.); Negative for guarding, splenomegaly or mass Back/Spine no CVA tenderness Extremity normal to inspection Neuro oriented x3, CN's II-XII intact bilaterally and no sensory deficits noted Sensorium / Orientation: alert Motor Exam: strength 5/5 throughout Psych mental status grossly normal Skin no rashes or lesions noted, no wounds and skin turgor normal General Skin Exam: Negative for jaundice or pallor MDM MDM MDM Narrative Medical decision making narrative: Presents with nausea, vomiting diarrhea started several days ago. Clinically she is dehydrated. Will obtain BMP to assess for hypokalemia and renal function. IV fluids were ordered as well as Zofran. We will treat her diarrhea with Imodium. History & Record Review Additional record(s) reviewed:: Prior outpatient record (Records indicate patient has iron deficiency anemia), Prior ED visit (Last ER visit was 2018.) and Prior labs Lab Data Labs: Laboratory Results - last 24 hr 08/27/23 19:35 Sodium 140 Potassium 3.6 Chloride 109 H Carbon Dioxide 24.0 Anion Gap 7 BUN 15 Creatinine 0.78 Estim Creat Clear Calc 74.52 Est GFR (MDRD) Af Amer 107 Est GFR (MDRD) Non-Af 88 BUN/Creatinine Ratio 19.2 Glucose 99 Calcium 9.4 Treatment and Re-Evaluation :: Patient was reassessed at 12/16/2008. Patient that she has urge to urinate. She states her nausea has improved markedly. She has not vomited since arrival. She was given a glass of roman lisa to determine if she is able to go home without vomiting. Was reassessed at 2140. She passed p.o. challenge. She did have 1 loose stool. She was instructed to take Imodium for the diarrhea. She was discharged with prescription for Zofran for her nausea and vomiting. Discharge Plan Triage Chief Complaint: Nausea/Vomiting/Diarrhea ED Provider: Vargas Lucero Dx/Rx/DC Orders Clinical Impression: Nausea vomiting and diarrhea, Generalized colicky abdominal pain, Mild dehydration Instructions: ED Gastroenteritis, Viral (Adult) Prescriptions: New ondansetron [ondansetron] 4 mg tablet,disintegrating 4 mg PO Q8H PRN PRN (Reason: Nausea) Qty: 10 0RF No Action multivitamin Tablet 1 tab PO DAILY hydroxychloroquine [Plaquenil] 200 mg tablet 200 mg PO BID magnesium oxide 400 mg (241.3 mg magnesium) tablet 400 mg PO DAILY Orilissa 200 mg tablet 200 mg PO BID Qty: 60 12RF B-complex with vitamin C Capsule 1 cap PO DAILY colestipol 1 gram tablet 2 g PO DAILY Qty: 180 3RF Rx Instructions: avoid other medications 1 hour prior to colestipol and 4 hours after colestipol fluticasone propionate 1 SPRAY spray,suspension 2 spray NASAL QHS Patient Comments: allergies/ eases breathing naproxen 500 mg tablet 500 mg PO Q8H PRN (Reason: Pain) Rx Instructions: administer with food or milk albuterol sulfate 2.5 mg /3 mL (0.083 %) solution for nebulization 2.5 mg INHALATION Q4H PRN (Reason: shortness of breath or wheezing) Qty: 90 2RF fluticasone propion-salmeterol [Advair Diskus] 500-50 mcg/dose blister with device 1 inh inhalation BID Qty: 3 3RF promethazine 25 mg tablet 25 mg PO TID PRN (Reason: nausea and vomiting) Qty: 30 0RF azelastine 137 mcg (0.1 %) aerosol,spray 1 spray INTRANASAL DAILY PRN (Reason: ALLERGIES) Qty: 30 11RF Rx Instructions: administer into each nostril albuterol sulfate 90 mcg/actuation HFA aerosol inhaler 2 puff inhalation Q4H PRN PRN (Reason: Sob &/Or Wheezing) Qty: 1 11RF sucralfate 1 gram tablet 1 g PO QAC Qty: 90 0RF duloxetine 30 mg capsule,delayed release(DR/EC) 30 mg PO BID Qty: 180 3RF montelukast 10 mg tablet 10 mg PO QHS Qty: 90 3RF esomeprazole magnesium 40 mg capsule,delayed release(DR/EC) 40 mg PO BID Qty: 180 0RF ondansetron 4 mg tablet,disintegrating 4 mg PO Q8H Qty: 30 0RF Primary Care Provider: Dianna Kraus Referrals: Dianna Kraus MD [Primary Care Provider] - 1 Week if not improving Activity Restrictions/Additional Instructions: 1. Advance diet as tolerated 2. Take Imodium with each loose stool as instructed on the box. Disposition Disposition: Home, Self Care
[2023-08-27] MEDS: Loperamide 2 MG Capsule 4 MG PO (20:54)
[2023-08-27 20:56] VITALS: BP 109/59; PULSE 78; RESP 16; O2SAT 98
== END 2023-08-27 22:02 | disposition home or self-care (01) ==
PROVIDERS: Emergency Provider Emergency Medicine; PCP Internal Medicine; Visit Provider Emergency Medicine
DX: R11.2 Nausea with vomiting, unspecified (principal); E86.0 Dehydration; R19.7 Diarrhea, unspecified; R10.84 Generalized abdominal pain; J45.909 Unspecified asthma, uncomplicated; Z99.89 Dependence on other enabling machines and devices; G47.30 Sleep apnea, unspecified; F98.8 Other specified behavioral and emotional disorders with onset usually occurring in childhood and adolescence
CPT/HCPCS: 80048; 96361; 96374; 99282; J7030; A4216; J2405

== ENCOUNTER → 2023-09-11 | Outpatient (CLI) | payer BC, SELFPAY ==
[2023-09-11 10:33] LABS: Absolute Lymphocyte Count 1.98 X10^3/uL (0.83-4.51); Absolute Neutrophil Count 4.9 X10^3/uL (2.0-7.7); Basophil# 0.04 X10^3/uL; Basophil% 0.5 % (0-1); Eosinophil# 0.12 X10^3/uL; Eosinophils% 1.6 % (0-5); Hematocrit 42.3 % (37-47); Hemoglobin 13.1 g/dL (12.0-15.0); Lymphocyte # 1.98 X10^3/ul (0.83-4.51); Lymphocyte % 26.9 % (19-41); Mean Corpuscular Hgb 26.7 pg (27.0-32.0); Mean Corpuscular Volume 86.3 fL (81-99); Mean Platelet Vol. 8.8 fl (6.2-12.0); Monocyte# 0.32 X10^3/uL; Monocyte% 4.3 % (0-10); NRBC Flagged by Analyzer 0 % (0-5); Neutrophil % 66.6 % (47-70); Platelet Count 274 K/mm3 (150-450); RBC Distribution Width CV 14.2 % (11.6-14.6); RBC Distribution Width SD 45.1 fl (35.1-43.9); White Blood Count 7.4 K/mm3 (4.4-11.0)
[2023-09-11 10:53] LABS: Hemoglobin A1c 5.4 % (3.8-5.6)
[2023-09-11 11:09] LABS: ALB/GLOB Ratio 0.9 RATIO (0.9-2.4); AST(SGOT) 10 U/L (15-37); Alanine Aminotransfer ALT/SGPT 23 U/L (13-56); Albumin, Serum 3.4 g/dL (3.2-5.0); Alkaline Phosphatase 143 U/L (45-117); Anion Gap 3 (5-15); BUN 10 mg/dL (7-18); BUN/Creat Ratio 14.8 RATIO (10-20); Calcium,Total 8.8 mg/dL (8.5-10.1); Chloride 109 mmol/L (98-107); Cholesterol 193 mg/dL (200); Creatinine, Serum 0.68 mg/dL (0.55-1.02); EST Glomerular Filtration Rate 104 mL/min (>60); Est Glom Filt Rate - Afr Amer 126 mL/min (>60); Globulin 3.9 g/dL (2.2-4.2); Glucose 91 mg/dL (74-106); High Density Lipoprotein 62 mg/dL; Potassium 4.1 mmol/L (3.5-5.1); Protein, Total 7.3 g/dL (6.4-8.2); Sodium Level 140 mmol/L (136-145); Thyroid Stim Hormone (TSH) 1.92 uIU/mL (0.358-3.74); Triglycerides 49 mg/dL; Very Low Density Lipoprotein 10 mg/dL (5-40)
[2023-09-11 11:12] LABS: Ferritin 104 ng/mL (8-252); Iron 46 ug/dL (50-170); Iron Binding Capacity,Total 317 ug/dL (250-450)
[2023-09-14 14:09] LABS: Vitamin D 1,25-Dihydroxy 35.2 pg/mL (24.8-81.5)
== END | disposition home or self-care (01) ==
LOC: LAB 10:06
PROVIDERS: PCP Internal Medicine; Referring Provider Obstetrics & Gynecology; Visit Provider Obstetrics & Gynecology
DX: D64.9 Anemia, unspecified (principal); E66.9 Obesity, unspecified
CPT/HCPCS: 36415; 80053; 80061; 82652; 82728; 83036; 83540; 83550; 84443; 85025

== ENCOUNTER → 2023-09-28 | Outpatient (CLI) | payer BC, SELFPAY ==
--- NOTE | 2023-09-28 11:35 | RAD_ITS ---
STUDY: X-RAY CHEST REASON FOR EXAM: Female, 38 years old. Cough TECHNIQUE: PA and lateral views of the chest. COMPARISON: Comparison is made with prior study September 05, 2021. FINDINGS: The lungs are clear and expanded. There is no demonstrated pleural abnormality. Normal size heart. Normal mediastinum and judy. Normal visualized pulmonary arteries. Normal visualized aortic arch and descending thoracic aorta. Normal visualized thoracic spine. Normal visualized ribs, clavicles, and shoulders. There is no demonstrated abnormality of the visualized soft tissue structures of the upper abdomen. RAD/Chest PA and Lateral IMPRESSION: Normal x-ray examination of the chest. Electronically Signed: Karson Hastings MD at 12:05 [facility] ,
== END | disposition home or self-care (01) ==
PROVIDERS: PCP Internal Medicine; Referring Provider Physician Assistant; Visit Provider Physician Assistant
DX: R05.9 Cough, unspecified (principal)
CPT/HCPCS: 71046

== ENCOUNTER 2023-10-11 15:57 | Outpatient (RCR) | payer BC, SELFPAY | END 2023-10-14 23:59 | LOC: NS 15:57 | PROVIDERS: PCP Internal Medicine; Referring Provider Internal Medicine; Visit Provider Internal Medicine | DX: Z71.3 Dietary counseling and surveillance (principal); E66.9 Obesity, unspecified; Z68.37 Body mass index [BMI] 37.0-37.9, adult | CPT/HCPCS: 97803 ==

== ENCOUNTER → 2023-12-01 | Outpatient (CLI) | payer BC, SELFPAY ==
--- OUTSIDE RECORDS SUMMARY | 2023-12-01 16:23 | XMS RPT_ITS | CCD ---
Author Name Unknown Address [address] [place] [address] Organization [facility] Care Team Providers Care Telemetry Tech Name Role Phone Gina King MD Unavailable [phone] Marisa Sagastume Unavailable Unavailable Marisa Sagastume Unavailable Unavailable PORSCHE Ross RN, Adrienne Escudero Unavailable Unavailabl Marisa Roberts Unavailable Unavailable Dianna Kraus MD Primary Care Provider [phone] Dianna Kraus MD Primary Care Provider [phone] Dianna Kraus MD Primary Care Provider Friend Nguyễn REINOSO Unavailable FANI HOBBS Attending Unavailable KIANA KRAUSEWONGBE B Primary Care Unavailable FANI HOBBS Referring Unavailable ELVIRA EFEWONGBE B Primary Care Unavailable MIGUEL ANGEL SEQUEIRA Attending Unavailable FANI HOBBS Referring Unavailable Allergies Allergy Classification Reported Allergen(s) Allergy Type Date of Onset Reaction(s) Facility (18 sources) Penicillins (Antibiotic) drug allergy 7 [facility] (2 sources) Penicillins; Translations: [PENICILLINS] Propensity to adverse reactions to drug 5 Other: See Comments [facility] Work Phone: (7 sources) Seasonal allergy; Translations: [SEASONAL ALLERGIES] Allergy to substance 4 Other: See Comments [facility] (6 sources) lactose intolerant [Other] Propensity to adverse reactions 5 Diarrhea, GI Upset [facility] Work Phone: (5 sources) Penicillins Propensity to adverse reactions to drug 5 Other: See Comments [facility] Work Phone: (1 source) OTHER; Translations: [OTHER] Propensity to adverse reactions (disorder) [address] [facility] Other [place] [facility] Medications Completed/Discontinued Medications Medication Drug Class(es) Dates Sig (Normalized) Sig (Original) [id number] 200 actuat albuterol 0.09 mg/actuat metered dose inhaler (20 sources) beta2-Adrenergic Agonist Start: 04-25-2019 take 2 puff(s) by inhalation every four hours as needed for wheezing albuterol HFA (PROVENTIL HFA, VENTOLIN HFA) 90 mcg/actuation inhaler Indications: Mild intermittent asthma without complication Inhale 2 Puffs as instructed every 4 hours as needed for Wheezing/Shortness of Breath. 1 Each 04/25/2019 Active Problems Active Problems Problem Classification Problem Date Documented Da te Episodic/Chronic Asthma (6 sources) Moderate persistent asthma; Translations: [Moderate persistent asthma, uncomplicated] Onset: 03-11-2015 03-11-2015 Chronic Female infertility (15 sources) Secondary female infertility; Translations: [Female infertility] Onset: 03-22-2017 08-23-2017 Chronic Menstrual disorders (6 sources) Irregular periods; Translations: [Irregular menstruation, unspecified] Onset: 08-31-2017 08-31-2017 Chronic Mood disorders (6 sources) Premenstrual dysphoric disorder; Translations: [Premenstrual dysphoric disorder] Onset: 03-22-2017 03-22-2017 Chronic Osteoarthritis (2 sources) Arthritis; Translations: [Unspecified osteoarthritis, unspecified site] Onset: 10-01-2022 06-01-2023 Chronic Other aftercare (1 source) Drug therapy finding; Translations: [Other snf (current) drug therapy] 06-01-2023 Episodic Other aftercare (1 source) 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; Translations: [Long-term use of Plaquenil] Onset: 06-01-2023 Episodic Other female genital disorders (6 sources) Abnormal uterine bleeding; Translations: [Abnormal uterine and vaginal bleeding, unspecified] Onset: 03-22-2017 03-22-2017 Chronic Other non-traumatic joint disorders (1 source) Multiple joint pain; Translations: [Pain in unspecified joint] 06-01-2023 Episodic Other upper respiratory disease (6 sources) Allergic rhinitis; Translations: [Allergic rhinitis, unspecified] Onset: 08-21-2005 08-21-2005 Chronic Unclassified (1 source) Low back pain, unspecified back pain laterality, unspecified chronicity, unspecified whether sciatica present; Translations: [Low back pain, unspecified back pain laterality, unspecified chronicity, unspecified whether sciatica present] Onset: 10-01-2022 Past or Other Problems Problem Classification Problem Date Documented Da te Episodic/Chronic Abdominal pain (4 sources) Chronic pelvic pain of female; Translations: [Acute pain in female pelvis] Onset: 08-23-2017 09-28-2017 Episodic Abdominal pain (8 sources) Acute pain in female pelvis; Translations: [Pelvic and perineal pain] Onset: 08-23-2017 08-23-2017 Episodic Esophageal disorders (6 sources) Esophagitis; Translations: [Esophagitis, unspecified] Onset: 02-03-2007 02-03-2007 Episodic Hemorrhage during ; abruptio placenta; placenta previa (20 sources) Hemorrhage in early , antepartum; Translations: [Other hemorrhage in early ] Onset: 08-20-2017 Resolved: 08-23-2017 08-23-2017 Episodic Malaise and fatigue (12 sources) Fatigue; Translations: [Other fatigue] Onset: 08-31-2017 08-31-2017 Episodic Other bone disease and musculoskeletal deformities (6 sources) Tietze's disease; Translations: [Chondrocostal junction syndrome [Tietze]] Onset: 08-21-2005 08-21-2005 Episodic Other connective tissue disease (1 source) Pain in right leg; Translations: [Pain in both lower extremities] Onset: 10-01-2022 Episodic Other connective tissue disease (1 source) Pain in left leg; Translations: [Pain in both lower extremities] Onset: 10-01-2022 Episodic Other connective tissue disease (1 source) Trochanteric bursitis, right hip; Translations: [Trochanteric bursitis of both hips] Onset: 10-01-2022 Episodic Other connective tissue disease (1 source) Trochanteric bursitis, left hip; Translations: [Trochanteric bursitis of both hips] Onset: 10-01-2022 Episodic Other nervous system disorders (6 sources) Numbness and tingling sensation of skin; Translations: [Anesthesia of skin] Onset: 09-06-2019 09-06-2019 Episodic Other non-traumatic joint disorders (1 source) Pain in unspecified joint; Translations: [Pain in joint, multiple sites] Onset: 10-01-2022 Episodic Sprains and strains (6 sources) Low back strain; Translations: [Strain of muscle, fascia and tendon of lower back, initial encounter] Onset: 12-23-2015 12-23-2015 Episodic Results Test Name Value Interpretation Reference Range Facil ity Vital Signs Date Time Vital Sign Value Performing Clinician Faci lity 06-01-2023 13:34-0400 Body height 154.4 cm Miguel Angel Barile PA-C Work Phone: [facility] 06-01-2023 13:34-0400 Body temperature 97.81 [degF] Miguel Angel Barile PA-C Work Phone: [facility] 06-01-2023 13:34-0400 Body weight 88.22 kg Miguel Angel Barile PA-C Work Phone: [facility] 06-01-2023 13:34-0400 Diastolic blood pressure 70 mm[Hg] Miguel Angel Barile PA-C Work Phone: [facility] 06-01-2023 13:34-0400 Heart rate 92 /min Miguel Angel Barile PA-C Work Phone: [facility] 06-01-2023 13:34-0400 SaO2% (BldA) [Mass fraction] 92 % Miguel Angel Barile PA-C Work Phone: [facility] 06-01-2023 13:34-0400 Systolic blood pressure 117 mm[Hg] Miguel Angel Barile PA-C Work Phone: [facility] 09-28-2017 09:43-0500 BMI (Body Mass Index) 33.06 kg/m2 Gina King MD [facility] 09-28-2017 09:43-0500 Body Temperature 98.3 [degF] Gina King MD [facility] 09-28-2017 09:43-0500 Body Temperature 98.29 [degF] Gina King MD [facility] 09-28-2017 09:43-0500 BP Diastolic 68 mm[Hg] Gina King MD [facility] 09-28-2017 09:43-0500 BP Systolic 104 mm[Hg] Gina King MD [facility] 09-28-2017 09:43-0500 Height 154.94 cm Gina King MD [facility] 09-28-2017 09:43-0500 Weight 79.38 kg Gina King MD [facility] 08-31-2017 14:50-0400 BMI (Body Mass Index) 32.68 kg/m2 Gina King MD [facility] 08-31-2017 14:50-0400 Body Temperature 99 [degF] Gina King MD [facility] 08-31-2017 14:50-0400 BP Diastolic 65 mm[Hg] Gina King MD [facility] 08-31-2017 14:50-0400 BP Systolic 96 mm[Hg] Gina King MD [facility] 08-31-2017 14:50-0400 Height 154.94 cm Gina King MD [facility] 08-31-2017 14:50-0400 Pulse (Heart Rate) 91 /min Gina King MD [facility] 08-31-2017 14:50-0400 Respiratory Rate 16 /min Gina King MD [facility] 08-31-2017 14:50-0400 Weight 78.47 kg Gina King MD [facility] 08-23-2017 10:45-0400 BMI (Body Mass Index) 32.61 kg/m2 Gina King MD [facility] 08-23-2017 10:45-0400 BP Diastolic 63 mm[Hg] Gina King MD [facility] 08-23-2017 10:45-0400 BP Systolic 99 mm[Hg] Gina King MD [facility] 08-23-2017 10:45-0400 Height 154.94 cm Gina King MD [facility] 08-23-2017 10:45-0400 Weight 78.29 kg Gina King MD [facility] Encounters Encounter Date Encounter Type Care Provider Facility Start: 06-01-2023 End: 06-01-2023 ambulatory DIANNA Gala KRAUS Facility:[facility] Start: 06-01-2023 End: 06-01-2023 Patient encounter procedure Miguel Angel Sequeira PA-C Work Phone: [facility] Procedures Date Procedure Procedure Detail Performing Clinician Start: 08-31-2017 End: 09-01-2017 *CMP Complete Metabolic Panel Gina King MD Work Phone: Start: 08-31-2017 End: 09-05-2017 1,25-Dihydroxyvitamin D [Mass/volume] in Serum or Plasma Gina King MD Work Phone: Start: 08-31-2017 End: 09-01-2017 Thyrotropin [Units/volume] in Serum or Plasma Gina King MD Work Phone: Start: 08-31-2017 End: 09-01-2017 Thyroxine (T4) [Mass/volume] in Serum or Plasma Gina King MD Work Phone: Start: 08-31-2017 End: 09-01-2017 *CMP Complete Metabolic Panel Gina King MD Work Phone: Start: 08-31-2017 End: 09-05-2017 1,25-Dihydroxyvitamin D [Mass/volume] in Serum or Plasma Gina King MD Work Phone: Start: 08-31-2017 End: 09-01-2017 Thyroid stimulating hormone (TSH) Gina King MD Work Phone: Start: 08-31-2017 End: 09-01-2017 Thyroxine (T4) Gina King MD Work Phone: Start: 08-23-2017 End: 08-23-2017 *CBC with Differential Gina felix MD Work Phone: Start: 08-23-2017 End: 08-23-2017 *CBC with Differential Gina felix MD Work Phone: Start: 08-23-2017 End: 11-06-2017 Transvaginal us, non-ob Gina irby MD Work Phone: Start: 08-23-2017 End: 11-06-2017 Urine culture, bacteria Gina irby MD Work Phone: Start: 08-23-2017 End: 11-06-2017 Us exam, pelvic, complete Gina burris MD Work Phone: Start: 08-20-2017 End: 08-20-2017 Choriogonadotropin.beta subunit [Units/volume] in Serum or Plasma Gina King MD Work Phone: Start: 08-20-2017 End: 08-20-2017 B-HCG Gina King MD Work Phone: Plan of Treatment Date Care Activity Detail Author Start: 03-11-2025 Urine microalbumin profile DTAP,TDAP,TD (2 - Td or Tdap) [facility] Start: 07-16-[address] [facility] Start: 07-16-[address] [facility] Start: 03-22-2022 HPV TESTING HPV TESTING [facility] Start: 03-22-2022 PAP TESTING PAP TESTING [facility] Start: 03-28-2021 COVID-19 VACCINE (3 - Booster for Pfizer series) COVID-19 VACCINE (3 - Booster for Pfizer series) [facility] Start: 03-28-2021 COVID-19 VACCINE (3 - Pfizer series) COVID-19 VACCINE (3 - Pfizer series) [facility] Start: 02-28-2021 COVID-19 VACCINE (3 - Pfizer risk series) COVID-19 VACCINE (3 - Pfizer risk series) [facility] Start: 11-04-2017 End: 11-04-[address] [facility] Start: 09-28-2017 End: 09-28-2017 Appointment Appointment [facility] Start: 08-31-2017 End: 08-31-2017 Appointment Appointment [facility] Start: 08-31-2017 End: 09-01-2017 *CMP Complete Metabolic Panel *CMP Complete Metabolic Panel [facility] Start: 08-31-2017 End: 09-05-2017 1,25-Dihydroxyvitamin D [Mass/volume] in Serum or Plasma *[id number] Vitamin D, 1, 25- DiHydroxy [facility] Start: 08-31-2017 End: 09-01-2017 Thyroid stimulating hormone (TSH) *TSH [facility] Start: 08-31-2017 End: 09-01-2017 Thyroxine (T4) *T4 TT4 (Thyroxine Total) [facility] Start: 08-31-2017 End: 09-01-2017 *CMP Complete Metabolic Panel *CMP Complete Metabolic Panel [facility] Start: 08-31-2017 End: 09-05-2017 1,25-Dihydroxyvitamin D [Mass/volume] in Serum or Plasma *[id number] Vitamin D, 1, 25- DiHydroxy [facility] Start: 08-31-2017 End: 09-01-2017 Thyroid stimulating hormone (TSH) *TSH [facility] Start: 08-31-2017 End: 09-01-2017 Thyroxine (T4) *T4 TT4 (Thyroxine Total) [facility] Start: 08-23-2017 End: 08-23-2017 *CBC with Differential *CBC with Differential [facility] Start: 08-23-2017 End: 08-23-2017 Urine culture, bacteria *CUUR - Culture, Urine ([place] Count) [facility] Start: 08-23-2017 End: 08-23-2017 Us pelvic nonobstetric real-time image complete US Pelvis [facility] Start: 08-23-2017 End: 08-23-2017 Us transvaginal US Transvaginal [facility] Start: 08-23-2017 End: 08-23-2017 Appointment Appointment [facility] Work Phone: Start: 08-23-2017 End: 08-23-2017 *CBC with Differential *CBC with Differential [facility] Start: 08-23-2017 End: 11-06-2017 Transvaginal us, non-ob US Transvaginal [facility] Start: 08-23-2017 End: 11-06-2017 Urine culture, bacteria *CUUR - Culture, Urine ([place] Count) [facility] Start: 08-23-2017 End: 11-06-2017 Us exam, pelvic, complete US Pelvis [facility] Start: 08-20-2017 End: 08-20-2017 HCG.beta subunit Qn *HCGT - HCG Titer Quant., Serum [facility] Work Phone: Start: 08-20-2017 End: 08-20-2017 B-HCG *HCGT - HCG Titer Quant., Serum [facility] Start: 03-11-2016 PNEUMOCOCCAL (2 - PPSV23 if available, else PCV20) PNEUMOCOCCAL (2 - PPSV23 if available, else PCV20) [facility] Start: 03-11-2016 PNEUMOCOCCAL (2 - PPSV23 or PCV20) PNEUMOCOCCAL (2 - PPSV23 or PCV20) [facility] Start: 05-06-2015 PNEUMOCOCCAL (2 - PPSV23 if available, else PCV20) PNEUMOCOCCAL (2 - PPSV23 if available, else PCV20) [facility] Start: 05-06-2015 PNEUMOCOCCAL (2 - PPSV23 or PCV20) PNEUMOCOCCAL (2 - PPSV23 or PCV20) [facility] Start: 2005 SHINGRIX VACCINE (1 of 2) SHINGRIX VACCINE (1 of 2) [facility] Start: 2004 ANNUAL PCP TEAM CHRONIC DISEASE VISIT ANNUAL PCP TEAM CHRONIC DISEASE VISIT [facility] Start: 2004 HEPATITIS C SCREENING HEPATITIS C SCREENING [facility] Start: 2004 HIV SCREENING HIV SCREENING [facility] Start: 1986 HEPATITIS B (1 of 3 - 3-dose series) HEPATITIS B (1 of 3 - 3-dose series) [facility] Immunizations Immunization Date Immunization Notes Care Provider Marisabel gabriel 09-03-2016 influenza, injectabl e, quadrivalent, contains preservative Fani Hobbs MD Work Phone: [facility] 12-04-2015 influenza, injectabl e, quadrivalent, contains preservative Fani Hobbs MD Work Phone: [facility] 04-27-2015 pneumococcal conjuga te vaccine, 13 valent Fani Hobbs MD Work Phone: [facility] 03-11-2015 tetanus toxoid, redu susana diphtheria toxoid, and acellular pertussis vaccine, adsorbed Fani Hobbs MD Work Phone: [facility] Payers Date Payer Category Payer Unknown JAIDA BURNETT SS PPO [id number] 2020-Present [phone] [address] [place] [address] PPO [id number] 2020 Unknown JAIDA BUENO ACCE SS PPO [id number] 2020-Present [phone] [address] [place] [address] PPO [id number] 2020 Unknown [id number] Social History Date Type Detail Facility Start: 03-27-2011 End: 10-01-2022 Tobacco smoking status NHIS Never smoked tobacco [facility] Start: 07-18-2021 End: 06-01-2023 Alcohol intake Ex-drinker (finding) [facility] Start: 01-15-2021 History SDOH Alcohol Comment 1 drink every couple of months [facility] Start: 1985 Sex Assigned At Female [facility] Start: 03-27-2011 End: 10-01-2022 Tobacco use and exposure Smokeless tobacco non-user [facility] Work Phone: Start: 10-23-2020 End: 10-01-2022 History of Social function [facility] Start: 10-23-2020 End: 10-01-2022 Tobacco use panel [facility] Adult Depression Screening Assessment [address] [facility] Start: 09-01-2019 Gender identity Identifies as female gender (finding) [facility] Start: 09-01-2019 Sexual orientation Heterosexual (dedrick reeves) [facility] Clinical Notes 05-07-2011 to 06-01-2023 Miguel Angel Sequeira PA-C - 06/01/2023 1:20 PM EDTTelephone Encounter - ConstantineStephanieGABRIEL - 05/26/2023 1:46 PM EDTTelephone Encounter - Josselyn ValenciaCHUN - 02/23/2023 1:54 PM EDT Note Date & Type Note Facility 06-01-2023 Note HNO ID: [id number] Author: Miguel Angel Sequeira PA-C Service: ? Author Type: Physician Coordinate Measuring Equipment Operator Type: Progress Notes Filed: 06/01/2023 4:38 PM Note Text: [facility] Miguel Angel Sequeira [address] [place] [address] RHEUMATOLOGY PROGRESS NOTE Patient is here for a follow up visit for Patient presents with: Inflammatory Arthritis HPI: Michelle Quinteros is a 37 year old female who presents inflammatory arthritis, LBP Plaquenil 200 mg BID- helped with swelling Increased morning stiffness lasting 10 min Gelling phenomenon No pain or joint swelling Cymbalta 60 mg daily, Flexeril Working with GI. Colonoscopy showed swelling of left large colon? Testing neg for IBD so far. Also found to have stomach ulcers? Seeing Dr. Hyatt. Plaquenil helped with swelling. Asthma symptoms got better. Reduced her episodes. She saw neurology - no MS. She cut out sugars - did not help much. She also got covid. Cut off fried food. Tried heat for pain. She takes ibuprofen. 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 Patient reports joints, fatigue, night sweats, low grade fever (intermittent), brain fog. No swelling. Paresthesia. Pain over low back and shoulders. Also in arms, wrists, feet, arch, myalgia. She has been going to the pool in the summer helps. Too much activity flares up. Dropping things. Tries not to take too much ibuprofen. PCP prescribed prednisone for elevated 04/26/20 - CRP 38.1 (<3), ESR 61. Saw eye MD - dry eyes. Also on anti histamines. 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.a Interval Review of Systems CONSTITUTIONAL: Recent Weight change: No Fever: No EYES: Dryness in nose: No Dryness of mouth: No Oral ulcers: No CARDIOVASCULAR: Pain in chest: No RESPIRATORY: Shortness of breath: No Cough: No GASTROINTESTINAL: Nausea: No Vomiting: No Changes in bowel movements: No Jaundice: No Heartburn: No MUSCULOSKELETAL: Per HPI INTEGUMENTARY: Rash: No HEMATOLOGIC/LYMPHATIC: Anemia: No NEUROLOGICAL SYSTEM: Headaches: No Sensitivity or pain of hands and/or feet: No PSYCHIATRIC: Anxiety: No Poor sleep: No BP 117/70 (BP Site: Left Arm, BP Position: Sitting) Pulse 92 Temp 36.6 ?C (97.8 ?F) Ht 154.4 cm (5' 0.78 ) Wt 88.2 kg (194 lb 8 oz) LMP 04/02/2017 (Exact Date) SpO2 92% BMI 37.02 kg/m? Physical Exam GENERAL: Well appearing, alert, comfortable, in no acute distress, well-hydrated, well nourished. HEENT: Negative for external ears normal. Canals are clear. Both TMs visualized and are normal. Eye Exam normal. External nose normal, no nasal ulcer or throat ulcer. NECK: NECK Supple, no adenopathy; thyroid symmetric, normal size, no bruits CARDIAC: regular rate and rhythm, No murmur asculated., and Equal peripheral pulses RESPIRATORY: Lungs clear to auscultation. No wheezing, rhonchi, rales VASCULAR: RRR without murmur, gallop, or rubs. No ectopy. NEURO: Motor and sensory exam normal MOTOR: Normal; including tone, gait, stressed gait, power and coordination. SKIN: Negative for alopecia, skin rash, malar rash, skin lesion, skin ulcer, pits, thickening, color changes, telangiectasias, nail changes, nail ridging, nail pitting, onycholysis MUSCULOSKELETAL: No joint tenderness or swelling Lab Results: 04/2023 CBC normal Iron studies and ferratin normal 11/2022 Cr 0.75 LFT normal CRP normal ESR 31 12/2021 Cr 0.75 Alk phos 130, ALT and AST normal CRP 2.2 CBC normal ESR 26 Serology: US synovial hands/wrists/ankles/feet 09/2021- no synovitis or tenosynovitis Radiology: Assessment and Plan (M19.90) Inflammatory arthritis (primary encounter diagnosis) (Z79.899) Long-term use of Plaquenil (M25.50) Pain in joint, multiple sites 37-year-old female is here for follow up for multiple nonspecific complaints including joint pain, myalgia, fatigue, sicca, subjective lymphadenopathy, low grade intermittent fevers and night sweats. She also has obstructive sleep apnea, depression, asthma. S (more content not included)... [facility] 06-01-2023 History of Present illness Narrative Images from the original note were not included. [facility] Miguel Angel Sequeira [address] [place] [address] RHEUMATOLOGY PROGRESS NOTE Patient is here for a follow up visit for Patient presents with: Inflammatory Arthritis HPI: Michelle Quinteros is a 37 year old female who presents inflammatory arthritis, LBP Plaquenil 200 mg BID- helped with swelling Increased morning stiffness lasting 10 min Gelling phenomenon No pain or joint swelling Cymbalta 60 mg daily, Flexeril Working with GI. Colonoscopy showed swelling of left large colon? Testing neg for IBD so far. Also found to have stomach ulcers? Seeing Dr. Hyatt. Plaquenil helped with swelling. Asthma symptoms got better. Reduced her episodes. She saw neurology - no MS. She cut out sugars - did not help much. She also got covid. Cut off fried food. Tried heat for pain. She takes ibuprofen. 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 Patient reports joints, fatigue, night sweats, low grade fever (intermittent), brain fog. No swelling. Paresthesia. Pain over low back and shoulders. Also in arms, wrists, feet, arch, myalgia. She has been going to the pool in the summer helps. Too much activity flares up. Dropping things. Tries not to take too much ibuprofen. PCP prescribed prednisone for elevated 04/26/20 - CRP 38.1 (<3), ESR 61. Saw eye MD - dry eyes. Also on anti histamines. 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 Unspecified asthma(493.90) PAST SURGICAL HISTORY Procedure Laterality Date DELIVERY ONLY 05/28/2011 , low transverse CHOLECYSTECTOMY 02/25/2006 Cholecystectomy ESOPHAGOGASTRODUODENOSCOPY TRANSORAL DIAGNOSTIC 02/03/2007 EGD TONSILLECTOMY PRIMARY/SECONDARY <AGE 12 Tonsillectomy History Review: I have reviewed and modified as needed, the following during this visit: Allergies, Past Medical History, Past Surgical History, Past Family History, Past Social History..a Interval Review of Systems CONSTITUTIONAL: Recent Weight change: No Fever: No EYES: Dryness in nose: No Dryness of mouth: No Oral ulcers: No CARDIOVASCULAR: Pain in chest: No RESPIRATORY: Shortness of breath: No Cough: No GASTROINTESTINAL: Nausea: No Vomiting: No Changes in bowel movements: No Jaundice: No Heartburn: No MUSCULOSKELETAL: Per HPI INTEGUMENTARY: Rash: No HEMATOLOGIC/LYMPHATIC: Anemia: No NEUROLOGICAL SYSTEM: Headaches: No Sensitivity or pain of hands and/or feet: No PSYCHIATRIC: Anxiety: No Poor sleep: No BP 117/70 (BP Site: Left Arm, BP Position: Sitting) Pulse 92 Temp 36.6 C (97.8 F) Ht 154.4 cm (5' 0.78 ) Wt 88.2 kg (194 lb 8 oz) LMP 04/02/2017 (Exact Date) SpO2 92% BMI 37.02 kg/m Physical Exam GENERAL: Well appearing, alert, comfortable, in no acute distress, well-hydrated, well nourished. HEENT: Negative for external ears normal. Canals are clear. Both TMs visualized and are normal. Eye Exam normal. External nose normal, no nasal ulcer or throat ulcer. NECK: NECK Supple, no adenopathy; thyroid symmetric, normal size, no bruits CARDIAC: regular rate and rhythm, No murmur asculated., and Equal peripheral pulses RESPIRATORY: Lungs clear to auscultation. No wheezing, rhonchi, rales VASCULAR: RRR without murmur, gallop, or rubs. No ectopy. NEURO: Motor and sensory exam normal MOTOR: Normal; including tone, gait, stressed gait, power and coordination. SKIN: Negative for alopecia, skin rash, malar rash, skin lesion, skin ulcer, pits, thickening, color changes, telangiectasias, nail changes, nail ridging, nail pitting, onycholysis MUSCULOSKELETAL: No joint tenderness or swelling Lab Results: 04/2023 CBC normal Iron studies and ferratin normal 11/2022 Cr 0.75 LFT normal CRP normal ESR 31 12/2021 Cr 0.75 Alk phos 130, ALT and AST normal CRP 2.2 CBC normal ESR 26 Serology: US synovial hands/wrists/ankles/feet 09/2021- no synovitis or tenosynovitis Radiology: Assessment and Plan (M19.90) Inflammatory arthritis (primary encounter diagnosis) (Z79.899) Long-term use of Plaquenil (M25.50) Pain in joint, multiple sites 37-year-old female is here for follow up for multiple nonspecific complaints including joint pain, myalgia, fatigue, sicca, subjective lymphadenopathy, low grade intermittent fevers and night sweats. She also has obstructive sleep apnea, depression, asthma. She had a comprehensive workup performed including negative AIDEN, rheumatoid factor, THOR. Normal urine analysis, CBC, CMP. She was noted to have elevated inflammatory markers. She had good response to prednisone. However these are nonspecific and could be misleading. On exam she does not have any classic symptoms of sicca and signs of inflammatory diseases. She reports chronic back pain. MRI of SI did not show sacroiliitis. Regardless of the workup she may need periodic monitoring given her young age and nonspecific symptoms for evolution into autoimmune diseases. She had seen neurology and hematology with negative workup. Fibromyalgia is another possibility. patient has done PT for chronic low back pain previously. She has been doing yoga and swimming for the last few months. She takes ibuprofen when pain is very severe. Reports GI upset with this. She continues to have widespread symptoms and high inflammatory markers (can be non specific) - plaquenil started- helping. Multiple tender spots also concerning for fibromyalgia - advised regualr exercise, healthier diet and weight loss. ESR, CRP can be obtained when she has flare ups. US hand, feet showed no synovitis. needs to schedule eye exam. May need to repeat MRI SI Continue close follow up with GI. Testing for IBD so far neg? Colonoscopy showed left sided colon swelling per pt? Stomach ulcers? Obtain records. No orders found for this visit on 06/01/23. Medication orders placed this encounter hydrOXYchloroQUINE (PLAQUENIL) 200 mg tablet Sig: Take 1 tablet by mouth twice daily. Dispense: 180 tablet Refill: 1 Return in about 6 months (around 12/02/2023) for inflammatory arthritis, Dr. Hobbs. Miguel Angel Sequeira PA-C documented in this encounter [facility] 05-26-2023 Miscellaneous Notes Pharmacy faxed requesting the following refill. Requested Prescriptions Pending Prescriptions Disp Refills hydrOXYchloroQUINE (PLAQUENIL) 200 mg tablet 180 tablet 0 Sig: Take 1 tablet by mouth twice daily. Patient last appointment: 10/01/2022 Next Appointment: 06/01/2023 Patient Phone numbers: [phone] (home) Request is for script(s) to be escript to pharmacy. Stephanie Fitch MA documented in this encounter [facility] 02-23-2023 Miscellaneous Notes Pharmacy requesting the following refill. Requested Prescriptions Pending Prescriptions Disp Refills hydrOXYchloroQUINE (PLAQUENIL) 200 mg tablet [Pharmacy Med Name: HYDROXYCHLOR TAB 200MG] 180 tablet 0 Sig: TAKE 1 TABLET TWICE A DAY Patient last appointment: 10/01/2022 Next Appointment: 04/01/2023 Patient Phone numbers: [phone] (home) Request is for script(s) to be escript to pharmacy. 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 Michelle Quinteros Patient Medication Renewal Request Pool Requested Prescriptions Pending Prescriptions Disp Refills hydrOXYchloroQUINE (PLAQUENIL) 200 mg tablet 180 tablet 0 Sig: Take 1 tablet by mouth twice daily. Patient last appointment: 10/01/2022 Bharathi Next Appointment: 04/01/2023 Bharathi Patient Phone numbers: [phone] (home) Request is for script(s) to be escript to pharmacy. [facility] - [place] [address] - [facility] - [phone] Portal to Registered [facility] Josselyn Valencia LPN documented in this encounter [facility] 10-01-2022 Note HNO ID: [id number] Author: Fani Hobbs MD Service: ? Author Type: Physician Type: Progress Notes Filed: 10/02/2022 9:47 AM Note Text: RHEUMATOLOGY PROGRESS NOTE Patient is here for a follow up visit for Patient presents with: Inflammatory Arthritis HPI: Michelle Quinteros is a 37 year old female who presents back pain Persistent back pain, worse legs hurt. Tender to touch. feels tired. Plaquenil helped with swelling. Asthma symptoms got better. Reduced her episodes. At present, more pain, ankles hurting, could not sleep, arch pain. Falls. Numbness. She saw neurology - no MS. Hands hurting more. Still has flares. Fingers sometimes swell, muscle pain, joint pain. Ankle pain in mornings. She cut out sugars - did not help much. She also got covid. Cut off fried food. Not done MRI yet due to change in her insurance. Tried heat for pain. She takes ibuprofen. 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 Patient reports joints, fatigue, night sweats, low grade fever (intermittent), brain fog. No swelling. Paresthesia. Pain over low back and shoulders. Also in arms, wrists, feet, arch, myalgia. She has been going to the pool in the summer helps. Too much activity flares up. Dropping things. Tries not to take too much ibuprofen. PCP prescribed prednisone for elevated 04/26/20 - CRP 38.1 (<3), ESR 61. Saw eye MD - dry eyes. Also on anti histamines. 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 Family history of autoimmune disease: 3 aunts with RA, father has some skin conditions Smoking status: Tobacco Use: Never Interval Review of Systems CONSTITUTIONAL: Recent Weight change: No Fever: No EYES: Dryness in nose: No Dryness of mouth: No Oral ulcers: No CARDIOVASCULAR: Pain in chest: No RESPIRATORY: Shortness of breath: No Cough: No GASTROINTESTINAL: Nausea: No Vomiting: No Changes in bowel movements: No Jaundice: No Heartburn: No MUSCULOSKELETAL: Per HPI INTEGUMENTARY: Rash: No HEMATOLOGIC/LYMPHATIC: Anemia: No NEUROLOGICAL SYSTEM: Headaches: No Sensitivity or pain of hands and/or feet: No PSYCHIATRIC: Anxiety: No Poor sleep: No PAST MEDICAL HISTORY Diagnosis Date Dysmenorrhea 08/21/2005 Enlarged thyroid Sleep apnea 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 BP 128/70 Pulse 112 Temp (!) 35.8 ?C (96.4 ?F) (Temporal) Resp 14 LMP 04/02/2017 (Exact Date) Physical Exam GENERAL: Well appearing, alert, comfortable, in no acute distress, well-hydrated, well nourished. HEENT: Negative for external ears normal. Canals are clear. Both TMs visualized and are normal. Eye Exam normal. External nose normal, no nasal ulcer or throat ulcer. NECK: NECK Supple, no adenopathy; thyroid symmetric, normal size, no bruits CARDIAC: regular rate and rhythm, No murmur asculated., and Equal peripheral pulses RESPIRATORY: Lungs clear to auscultation. No wheezing, rhonchi, rales VASCULAR: RRR without murmur, gallop, or rubs. No ectopy. NEURO: Motor and sensory exam normal MOTOR: Normal; including tone, gait, stressed gait, power and coordination. SKIN: Negative for alopecia, skin rash, malar rash, skin lesion, skin ulcer, pits, thickening, color changes, telangiectasias, nail changes, nail ridging, nail pitting, onycholysis MUSCULOSKELETAL: DIPS: Normal PIPS: Normal MCPs: Normal Wrists: Normal Elbows: Normal Shoulders: Normal C-Spine: Normal Hips: Normal Knees: Normal Ankles: Normal MTPs / Toes: Normal Arches: Normal Lab Results: Glucose 77 12/24/2021 ALT 12 12/24/2021 WBC 8.80 12/24/2021 Hemoglobin 11.8 12/24/2021 Platelet Count 379 12/24/2021 Sed Rate, Westergren 26 12/24/2021 CRP 2.2 12/24/2021 Serology: Radiology: Assessment and Plan (M54.50) Low back pain, unspecified back pain laterality, unspecified chronicity, unspecified whether sciatica present (primary encounter diagnosis) (M79.604, M79.605) Pain in both lower extremities (M19.90) Inflammatory arthritis (M25.50) Pain in joint, multiple sites (M70.61, M70.62) Trochanteric bursitis of both hips 37-year-old female is here for follow up for multiple nonspecific complaints including joint pain, myalgia, fatigue, sicca, subjective lymphadenopathy, low grade intermittent fevers and night sweats. He also has obstructive sleep apnea, depression, asthma. She had a comprehensive workup perfor (more content not included)... [facility] 09-07-2022 Miscellaneous Notes Rx mail pharmacy faxed requesting the following refill. Requested Prescriptions Pending Prescriptions Disp Refills hydrOXYchloroQUINE (PLAQUENIL) 200 mg tablet 180 tablet 0 Sig: Take 1 tablet by mouth twice daily. Patient last appointment: Visit date not found Next Appointment: Visit date not found Patient Phone numbers: [phone] (home) Request is for script(s) to be escript to pharmacy. Nati Montes LPN documented in this encounter [facility] 05-11-2022 Miscellaneous Notes Patient sent a [employer] message requesting the following refill. Pending Prescriptions Disp Refills HYDROXYCHLOROQUINE 200 MG TABLET 180 tablet 1 Sig: Take 1 tablet by mouth twice daily. HOWIE: No Patient last appointment: 10/01/2021 Next Appointment: 10/01/2022 Patient Phone numbers: [phone] (home) Request is for script(s) to be escript to pharmacy. Ishan Patel MA documented in this encounter [facility] 06-23-2021 Note HNO ID: [id number] Author: RT Matthias(Laura) Service: ? Author Type: Sap Fico Architect Type: Progress Notes Filed: 06/23/2021 3:41 PM Note Text: Radiology Service Progress Note PATIENT NAME: Michelle Quinteros DATE OF SERVICE: June 23, 2021 TIME: 3:40 PM PATIENT IDENTITY VERIFICATION COMPLETED USING TWO (2) IDENTIFIERS: Name and Date of confirmed by patient verbally. FALL SCREENING: Has the patient had 2 falls in the last year or 1 fall with injury or currently using an Ambulatory Assistive Device (Walker, Cane, Wheelchair, Crutches, etc.)? No PATIENT GENDER DATA: Female. status: : No status: NO. PATIENT RELEVANT IMPLANT DATA REVIEWED: Yes RADIOLOGY DEPARTMENT: MR; Exam(s) Completed: Lower MSK: SI Joints PERIPHERAL IV DATA: Not applicable SIGNED BY: RT Matthias(R) June 23, 2021 3:40 PM [facility] 03-08-2021 Note HNO ID: [id number] Author: Fifi Castro (Pa) Service: ? Author Type: Physician Coordinate Measuring Equipment Operator Type: Progress Notes Filed: 03/08/2021 12:46 PM Note Text: This note was created using NoteWriter. Subjective Michelle Quinteros is a 35 year old female. HPI Presents with bumps on her tongue over the past week. She states her throat has been a little sore as well. She denies fevers or chills. She has chronic allergies and those really have not changed recently. No cough. No body aches. She has no history of cold sores. Review of Systems Constitutional: Negative. HENT: Positive for sore throat. Bumps on tongue Eyes: Negative. Respiratory: Negative. Cardiovascular: Negative. Gastrointestinal: Negative. Genitourinary: Negative. Musculoskeletal: Negative. All other systems reviewed and are negative. 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 - fluticasone propion-salmeterol (AIRDUO RESPICLICK) 232-14 mcg/actuation Inhale as instructed twice daily. - magnesium oxide 400 mg magnesium tab Take by mouth once daily. - azelastine (ASTELIN,ASTEPRO) 0.1% nasal spray - fluticasone (FLONASE) 50 mcg/actuation nasal spray Use 2 Sprays in each nostril once daily. 1 Bottle 11 - DULoxetine (CYMBALTA) 30 mg capsule Take 30 mg by mouth twice daily. 3 - cetirizine (ZYRTEC) 10 mg tablet Take 1 tablet by mouth once daily. - montelukast (SINGULAIR) 10 mg tablet TAKE 1 TABLET BY MOUTH AT BEDTIME 90 tablet 3 - EVENING PRIMROSE OIL (EVENING PRIMROSE ORAL) Take 1,000 mg by mouth once daily. Sometimes twice daily when on menses. - albuterol 2.5 mg /3 mL (0.083 %) nebulizer solution Use 3 mL via nebulizer as directed for 1 day. ADMINISTER 1UNIT DOSE NOW. 1 Vial 0 - FA/MV,CA,IRON,MIN/LYCOPENE/LUT (MULTIVITAL ORAL) Take by mouth. - bfkyxjktmtKOWSV-hbqerx-soclabmut (BMX 1:1:1) 1:1:1 liqd Mix in equal amounts - 1 T every 2hrs as needed for mouth pain and spit out. (8oz) 240 mL 0 - azithromycin (ZITHROMAX) 250 mg tablet Take 250 mg by mouth once daily. (Patient not taking: Reported on 03/08/2021 ) - hydrOXYchloroQUINE (PLAQUENIL) 200 mg tablet Take 1 tablet by mouth twice daily. (Patient not taking: Reported on 03/08/2021 ) 60 tablet 1 - cefUROXime (CEFTIN) 500 mg tablet cefuroxime axetil 500 mg tablet (Patient not taking: Reported on 03/08/2021) - sulfamethoxazole-trimethoprim (BACTRIM DS,SEPTRA DS) 800-160 mg per tablet (Patient not taking: Reported on 03/08/2021 ) - budesonide (PULMICORT FLEXHALER) 180 mcg/actuation aepb Inhale 2 Puffs as instructed twice daily. (Patient not taking: Reported on 01/15/2021 ) 1 Inhaler 11 - predniSONE (DELTASONE) 20 mg tablet TAKE 3 TABLETS BY MOUTH DAILY FOR 5 DAYS (Patient not taking: Reported on 03/08/2021) 0 - albuterol HFA (PROVENTIL HFA, VENTOLIN HFA) 90 mcg/actuation inhaler Inhale 2 Puffs as instructed every 4 hours as needed for Wheezing/Shortness of Breath. 1 Each 6 - desog-e.estradiol/e.estradiol (KARIVA, 28, ORAL) Take by mouth. (Patient not taking: Reported on 03/08/2021 ) - Benzonatate 200 mg capsule Take 1 capsule by mouth three times daily as needed. (Patient not taking: Reported on 03/08/2021 ) 30 capsule 0 - citalopram (CELEXA) 20 mg tablet Take 1 tablet by mouth once daily. (Patient not taking: Reported on 03/08/2021 ) 30 tablet 13 - COMPOUNDED PRESCRIPTION PEAK FLOW METER DX 493.92 1 Act 0 No current facility-administered medications for this visit. PAST SURGICAL HISTORY Procedure Laterality Date - DELIVERY ONLY 05/28/2011 , low transverse - EGD W/O OR W/BRUSH/WASH 02/03/2007 EGD - REMOVAL GALLBLADDER 02/25/2006 Cholecystectomy - REMOVAL OF TONSILS,<12 Y/O Tonsillectomy FAMILY HISTORY Problem Relation Age of Onset - Thyroid Mother 60 - Hypertension Father - Cancer Maternal Grandmother Lymphoma - Arthritis Paternal Grandfather - Colon Cancer Paternal Grandfather - Heart Paternal Grandmother - Cancer Maternal Aunt ovarian - Heart Paternal Uncle - Cancer Paternal Uncle Lung - Arthritis Paternal Aunt RA - Arthritis Maternal Aunt RA - Arthritis Maternal Aunt RA Social History Tobacco Use - Smoking status: Never Smoker - Smokeless tobacco: Never Used Substance Use Topics - Alcohol use: Not Currently Comment: 1 drink every couple of months - Drug use: No Objective BP 122/70 Pulse 86 Temp 37.1 ?C (98.8 ?F) (Tympanic) Resp 16 Wt 87.1 kg (192 lb) LMP 04/02/2017 (Exact Date) SpO2 96% BMI 36.28 kg/m? Physical Exam Vitals reviewed. Constitutional: Appearance: Normal appearance. HENT: Head: Normocephalic and atraumatic. Mouth/Throat: Comments: Patient has small vesicles scattered on ton (more content not included)... [facility] documented as of this encounter (statuses as of 05/11/2022) [facility] History of Past illness Narrative* Problem Noted Date Resolved Date Supervision of normal first 05/07/2011 03/11/2015 Abdominal pain, unspecified site 01/04/2006 03/11/2015 Overview: [place] did not feel surgery indicated on umbilical hernia in 07-22 Dysmenorrhea 08/21/2005 03/11/2015 ASTHMA UNSPECIFIED 03/11/2015 documented as of this encounter (statuses as of 09/08/2022) [facility] History of Past illness Narrative* Problem Noted Date Resolved Date Supervision of normal first 05/07/2011 03/11/2015 Abdominal pain, unspecified site 01/04/2006 03/11/2015 Overview: [place] did not feel surgery indicated on umbilical hernia in 07-22 Dysmenorrhea 08/21/2005 03/11/2015 ASTHMA UNSPECIFIED 03/11/2015 documented as of this encounter (statuses as of 12/18/2022) [facility] History of Past illness Narrative* Problem Noted Date Resolved Date Supervision of normal first 05/07/2011 03/11/2015 Abdominal pain, unspecified site 01/04/2006 03/11/2015 Overview: [place] did not feel surgery indicated on umbilical hernia in - Dysmenorrhea 08/21/2005 03/11/2015 ASTHMA UNSPECIFIED 03/11/2015 documented as of this encounter (statuses as of 02/24/2023) [facility] History of Past illness Narrative* Problem Noted Date Diagnosed Date Resolved Date Supervision of normal first 05/07/2011 03/11/2015 Abdominal pain, unspecified site 01/04/2006 03/11/2015 Overview: [place] did not feel surgery indicated on umbilical hernia in 07-22 Dysmenorrhea 08/21/2005 03/11/2015 ASTHMA UNSPECIFIED 5 documented as of this encounter (statuses as of 05/27/2023) [facility] History of Past illness Narrative* Problem Noted Date Diagnosed Date Resolved Date Supervision of normal first 05/07/2011 03/11/2015 Abdominal pain, unspecified site 01/04/2006 03/11/2015 Overview: [place] did not feel surgery indicated on umbilical hernia in - Dysmenorrhea 08/21/2005 03/11/2015 ASTHMA UNSPECIFIED 5 documented as of this encounter (statuses as of 06/02/2023) [facility] Inflammatory arthritis- Primary Unspecified inflammatory polyarthropathy Long-term use of Plaquenil Encounter for long-term (current) use of other medications Pain in joint, multiple sites documented in this encounter [facility] Summary Purpose Family History No Family History Records FoundNo Family History Records FoundNo Family History Records FoundNo Family History Records FoundNo Family History Records Found Advance Directives No Advanced Directives Records FoundDocuments on File Type Date Recorded Patient 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 DATE CREATED AUTHOR AUTHOR'S ORGANIZ ATION 02/01/2022 [facility] DATE CREATED AUTHOR AUTHOR'S ORGANIZ ATION 06/02/2023 [facility] Source Comments (unrecognize d section and content) In the event this informatio n is protected by the Federal Confidentiality of Alcohol and Drug Abuse Patient Records regulations: The Federal rules restrict any use of the information to criminally investigate or prosecute any alcohol or drug abuse patient.[facility] the event this information is protected by the Federal Confidentiality of Alcohol and Drug Abuse Patient Records regulations: The Federal rules restrict any use of the information to criminally investigate or prosecute any alcohol or drug abuse patient.[facility] the event this information is protected by the Federal Confidentiality of Alcohol and Drug Abuse Patient Records regulations: The Federal rules restrict any use of the information to criminally investigate or prosecute any alcohol or drug abuse patient.[facility] the event this information is protected by the Federal Confidentiality of Alcohol and Drug Abuse Patient Records regulations: The Federal rules restrict any use of the information to criminally investigate or prosecute any alcohol or drug abuse patient.[facility] the event this information is protected by the Federal Confidentiality of Alcohol and Drug Abuse Patient Records regulations: The Federal rules restrict any use of the information to criminally investigate or prosecute any alcohol or drug abuse patient.[facility] the event this information is protected by the Federal Confidentiality of Alcohol and Drug Abuse Patient Records regulations: The Federal rules restrict any use of the information to criminally investigate or prosecute any alcohol or drug abuse patient.[facility] Reason for Visit (unrecogniz ed section and content) Reason Onset Date Comments Refill Request 09/07/2022 Reason Onset Date Comments Refill Request 12/18/2022 Reason Comments Refill Request Reason Onset Date Comments Refill Request 05/26/2023 Reason Comments Inflammatory Arthritis Care Teams (unrecognized sec tion and content) Telemetry Tech Relationship Specialty Start Date End Date Dianna Kraus MD PCP - General Internal Medicine 01/20/19 Telemetry Tech Relationship Specialty Start Date End Date Dianna Kraus MD PCP - General Internal Medicine 01/20/19 Telemetry Tech Relationship Specialty Start Date End Date Dianna Kraus MD PCP - General Internal Medicine 01/20/19 Telemetry Tech Relationship Specialty Start Date End Date Dianna Kraus MD PCP - General Internal Medicine 01/20/19 Telemetry Tech Relationship Specialty Start Date End Date Dianna Kraus MD PCP - General Internal Medicine 01/20/19 Nguyễn Hyatt DO [address] [address] Gastroenterology 06/01/23 FOR RECORDS PERTAINING TO PATIENTS WHO ARE OR HAVE BEEN ENROLLED IN A CHEMICAL DEPENDENCY/SUBSTANCEABUSE PROGRAM, SOME INFORMATION MAY BE OMITTED. This clinical summary was aggregated from multiple sources. Caution should be exercised in using it in the provision of clinical care. This summary normalizes information from multiple sources, and as a consequence, information in this document may materially change the coding, format and clinical context of patient data. In addition, data may be omitted in some cases. CLINICAL DECISIONS SHOULD BE BASED ON THE PRIMARY CLINICAL RECORDS. [employer] [facility]. provides no warranty or guarantee of the accuracy or completeness of information in this document.
[2023-12-01 16:49] LABS: Absolute Lymphocyte Count 2.56 X10^3/uL (0.83-4.51); Absolute Neutrophil Count 5.4 X10^3/uL (2.0-7.7); Basophil# 0.04 X10^3/uL; Basophil% 0.5 % (0-1); Eosinophil# 0.14 X10^3/uL; Eosinophils% 1.6 % (0-5); Hematocrit 40.8 % (37-47); Hemoglobin 12.9 g/dL (12.0-15.0); Lymphocyte # 2.56 X10^3/ul (0.83-4.51); Lymphocyte % 29.9 % (19-41); Mean Corp Hgb Conc 31.6 g/dL (32-36); Mean Corpuscular Hgb 27.2 pg (27.0-32.0); Mean Corpuscular Volume 85.9 fL (81-99); Monocyte# 0.42 X10^3/uL; Monocyte% 4.9 % (0-10); NRBC Flagged by Analyzer 0 % (0-5); Neutrophil # 5.37 X10^3/uL (2.7-7.7); Neutrophil % 62.9 % (47-70); Platelet Count 268 K/mm3 (150-450); RBC Distribution Width SD 43.8 fl (35.1-43.9); Red Blood Count 4.75 M/mm3 (4.2-5.4); White Blood Count 8.6 K/mm3 (4.4-11.0)
== END | disposition home or self-care (01) ==
LOC: BIMLAB 16:04
PROVIDERS: PCP Internal Medicine; Visit Provider Internal Medicine
DX: D64.9 Anemia, unspecified (principal)
CPT/HCPCS: 36415; 85025

== ENCOUNTER 2023-12-07 16:05 | Outpatient (RCR) | payer BC, SELFPAY | END 2023-12-15 23:59 | LOC: NS 16:05 | PROVIDERS: PCP Internal Medicine; Referring Provider Internal Medicine; Visit Provider Internal Medicine | DX: Z71.3 Dietary counseling and surveillance (principal); E66.9 Obesity, unspecified | CPT/HCPCS: 97803 ==

== ENCOUNTER 2024-01-03 14:59 | Outpatient (RCR) | payer BC, SELFPAY | END 2024-01-13 23:59 | LOC: NS 14:59 | PROVIDERS: PCP Internal Medicine; Referring Provider Internal Medicine; Visit Provider Internal Medicine | DX: Z71.3 Dietary counseling and surveillance (principal); E66.9 Obesity, unspecified; Z68.38 Body mass index [BMI] 38.0-38.9, adult | CPT/HCPCS: 97803 ==

== ENCOUNTER → 2024-01-25 | Outpatient (CLI) | payer BC, SELFPAY | END | disposition home or self-care (01) | LOC: SL 11:38 | PROVIDERS: PCP Internal Medicine; Referring Provider Nurse Practitioner Acute Care; Visit Provider Nurse Practitioner Acute Care | DX: G47.33 Obstructive sleep apnea (adult) (pediatric) (principal) | CPT/HCPCS: 98960; G0463 ==

== ENCOUNTER 2024-02-14 09:29 | Outpatient (RCR) | payer BC, SELFPAY | END 2024-03-14 23:59 | LOC: NS 09:29 | PROVIDERS: PCP Internal Medicine; Referring Provider Internal Medicine; Visit Provider Internal Medicine | DX: Z71.3 Dietary counseling and surveillance (principal); E66.9 Obesity, unspecified; Z68.38 Body mass index [BMI] 38.0-38.9, adult | CPT/HCPCS: 97803 ==

== ENCOUNTER 2024-04-26 10:03 | Outpatient (RCR) | payer BC, SELFPAY | END 2024-05-14 23:59 | LOC: NS 10:03 | PROVIDERS: PCP Internal Medicine; Referring Provider Internal Medicine; Visit Provider Internal Medicine | DX: Z71.3 Dietary counseling and surveillance (principal); E66.9 Obesity, unspecified; Z68.38 Body mass index [BMI] 38.0-38.9, adult | CPT/HCPCS: 97803 ==

== ENCOUNTER 2024-05-30 13:04 | Outpatient (RCR) | payer BC, SELFPAY | END 2024-06-14 23:59 | LOC: NS 13:04 | PROVIDERS: PCP Internal Medicine; Referring Provider Internal Medicine; Visit Provider Internal Medicine | DX: Z71.3 Dietary counseling and surveillance (principal); E66.9 Obesity, unspecified; Z68.36 Body mass index [BMI] 36.0-36.9, adult | CPT/HCPCS: 97803 ==

== ENCOUNTER 2024-07-04 16:37 | Outpatient (RCR) | payer BC, SELFPAY | END 2024-07-15 23:59 | LOC: NS 16:37 | PROVIDERS: PCP Internal Medicine; Referring Provider Internal Medicine; Visit Provider Internal Medicine | DX: Z71.3 Dietary counseling and surveillance (principal); E66.9 Obesity, unspecified; Z68.37 Body mass index [BMI] 37.0-37.9, adult | CPT/HCPCS: 97803 ==

== ENCOUNTER 2024-08-02 17:04 | Outpatient (RCR) | payer BC, SELFPAY | END 2024-08-14 23:59 | LOC: NS 17:04 | PROVIDERS: PCP Internal Medicine; Referring Provider Internal Medicine; Visit Provider Internal Medicine | DX: Z71.3 Dietary counseling and surveillance (principal); E66.9 Obesity, unspecified; Z68.36 Body mass index [BMI] 36.0-36.9, adult | CPT/HCPCS: 97803 ==

== ENCOUNTER 2024-09-05 17:04 | Outpatient (RCR) | payer BC, SELFPAY | END 2024-09-05 18:00 | disposition home or self-care (01) | LOC: NS 17:04 | PROVIDERS: PCP Internal Medicine; Referring Provider Internal Medicine; Visit Provider Internal Medicine | DX: Z71.3 Dietary counseling and surveillance (principal); E66.9 Obesity, unspecified; Z68.35 Body mass index [BMI] 35.0-35.9, adult | CPT/HCPCS: 97803 ==

== ENCOUNTER 2024-10-25 16:47 | Outpatient (RCR) | payer BC, SELFPAY | END 2024-11-14 23:59 | LOC: NS 16:47 | PROVIDERS: PCP Internal Medicine; Referring Provider Internal Medicine; Visit Provider Internal Medicine | DX: Z71.3 Dietary counseling and surveillance (principal); E66.9 Obesity, unspecified; Z68.32 Body mass index [BMI] 32.0-32.9, adult | CPT/HCPCS: 97803 ==

== ENCOUNTER → 2024-11-03 | Outpatient (CLI) | payer BC, SELFPAY ==
--- NOTE | 2024-11-03 10:19 | RAD_ITS ---
INDICATION: 6 weeks of cough EXAMINATION/TECHNIQUE: X-RAY - XR Chest 2 Views COMPARISON: Prior study dated: 09/28/2023 FINDINGS: LINES/DEVICES: None. LUNGS: No consolidation, edema or effusion. No pneumothorax. MEDIASTINUM AND CARDIOVASCULAR STRUCTURES: Cardiac silhouette not enlarged. Central airways and mediastinal contour are unremarkable. BONES AND SOFT TISSUES: Unremarkable. RAD/Chest PA and Lateral IMPRESSION: No radiographic evidence of acute cardiopulmonary disease. Electronically Signed: Al Ahmadi MD at 12:18 EST ,
== END | disposition home or self-care (01) ==
LOC: MTRAD 10:19 → LAB 16:09
PROVIDERS: PCP Internal Medicine; Referring Provider Nurse Practitioner; Visit Provider Nurse Practitioner Family
DX: R05.9 Cough, unspecified (principal)
CPT/HCPCS: 71046; 87070; 87205

== ENCOUNTER 2024-12-11 16:37 | Outpatient (RCR) | payer BC, SELFPAY | END 2024-12-15 23:59 | LOC: NS 16:37 | PROVIDERS: PCP Internal Medicine; Referring Provider Internal Medicine; Visit Provider Internal Medicine | DX: Z71.3 Dietary counseling and surveillance (principal); E66.9 Obesity, unspecified; Z68.31 Body mass index [BMI] 31.0-31.9, adult | CPT/HCPCS: 97803 ==

== ENCOUNTER 2025-01-08 16:04 | Outpatient (RCR) | payer BC, SELFPAY | END 2025-01-12 23:59 | LOC: NS 16:04 | PROVIDERS: PCP Internal Medicine; Referring Provider Internal Medicine; Visit Provider Internal Medicine | DX: Z71.3 Dietary counseling and surveillance (principal); E66.9 Obesity, unspecified | CPT/HCPCS: 97803 ==

== ENCOUNTER 2025-02-07 09:34 | Outpatient (RCR) | payer BC, SELFPAY | END 2025-02-12 23:59 | LOC: NS 09:34 | PROVIDERS: PCP Internal Medicine; Referring Provider Internal Medicine; Visit Provider Internal Medicine | DX: Z71.3 Dietary counseling and surveillance (principal); E66.9 Obesity, unspecified; Z68.38 Body mass index [BMI] 38.0-38.9, adult | CPT/HCPCS: 97803 ==

== ENCOUNTER 2025-04-01 10:50 | Emergency (ER) | payer BC, SELFPAY ==
[2025-04-01 10:51] VITALS: BP 103/64; PULSE 87; RESP 16; TEMP 36.6; O2SAT 97; BMI 30.4
--- NOTE | 2025-04-01 11:12 | CT_ITS ---
EXAM: CT Abdomen and Pelvis With Intravenous Contrast CLINICAL INDICATION: ABDOMINAL PAIN, DIARRHEA TECHNIQUE: Axial computed tomography images of the abdomen and pelvis with intravenous contrast. This CT exam was performed using one or more of the following dose reduction techniques: automated exposure control, adjustment of the mA and/or kV according to patient size, and/or use of iterative reconstruction technique. COMPARISON: CT Abdomen Pelvis dated 01/04/2023 FINDINGS: LUNG BASES: Unremarkable. No mass. No consolidation. ABDOMEN: LIVER: Hepatomegaly with fatty infiltration. GALLBLADDER AND BILE DUCTS: Unremarkable. No calcified stones. No ductal dilation. PANCREAS: Unremarkable. No mass. No ductal dilation. SPLEEN: Unremarkable. No splenomegaly. ADRENALS: Unremarkable. No mass. KIDNEYS AND URETERS: Unremarkable. No solid mass. No hydronephrosis. STOMACH AND BOWEL: Colon filled with air-fluid levels without distension likely secondary to diarrhea. Clinical correlation is recommended. No mucosal thickening. PELVIS: APPENDIX: No findings to suggest acute appendicitis. BLADDER: Unremarkable. No mass. REPRODUCTIVE: Unremarkable as visualized. ABDOMEN and PELVIS: INTRAPERITONEAL SPACE: Unremarkable. No free air. No significant fluid collection. BONES/JOINTS: No acute fracture. No dislocation. SOFT TISSUES: Unremarkable. VASCULATURE: Unremarkable. No abdominal aortic aneurysm. LYMPH NODES: Unremarkable. No enlarged lymph nodes. CT/Abdomen/Pelvis W IV Cont ONLY IMPRESSION: 1. Hepatomegaly with fatty infiltration. 2. Colon filled with air-fluid levels without distension likely secondary to d iarrhea. Clinical correlation is recommended. Reading Location: [id number]
--- NOTE | 2025-04-01 11:13 | EDS_ITS ---
<Statement entered by Justyn Schwartz DO - 04/01/25 16:23> Patient was seen and examined with physician assistant laboratory director Justine All components of the history and physical confirmed and agreed. History of present illness and physical exam: Patient is a 31-year-old female past medical history of depression, anxiety, asthma who presented to the Emergency Department chief complaint nausea vomit diarrhea abdominal pain. Patient states that she has been sick since Wednesday and notes that she had similar symptoms about 2 weeks ago as well as her other family members. She states that she did not have any sick contacts this time and notes that given that her symptoms have persisted she was concerned therefore she came here for the evaluation management. States that she took her son's Bentyl yesterday which did improve her symptoms somewhat however noted that since this was his prescription that they had in the house she wanted to be sure that nothing else was going on at this point time. Review of systems: Agree with above Physical exam: Agree with above MDM Patient is a 31-year-old female who presented to the emerged part with chief complaint of abdominal pain nausea vomiting diarrhea. On the differential diagnose includes but not limited to viral gastroenteritis, bowel obstruction, diverticulitis. Once workup is obtained reviewed she will be reevaluated. Patient CBC was reviewed and showed no evidence leukocytosis white blood count normal 5.5, hemoglobin 13.1, platelet count was noted be 222. Patient sodium was 140, potassium of 4.2, creatinine was 0.68. Patient AST and ALT were 67 and 114 respectively however total bilirubin normal at 0.24. Patient lipase normal at 37, test was negative. Patient's urinalysis was reviewed and showed no evidence of infection. Patient CT abdomen pelvis with IV contrast reviewed and showed hepatomegaly with fatty liver and colon finding consistent with diarrhea. On reevaluation the patient she does feel better she like to go home at this point time. We advised that she likely has a viral gastroenteritis and was advised to continue supportive care she was given prescription for Zofran and Bentyl. She was encouraged return with worsening symptoms and concerns. She is advised to have her liver enzymes repeated by her primary care physician within the next week. All question concerns answered she is discharged home in stable condition. Final impression: Abdominal pain Nausea vomiting Diarrhea Viral gastroenteritis Disposition: Patient will be discharged home in stable condition Supervising attending attestation: Justyn Schwartz D.O. HPI HPI - GI History of Present Illness Chief Complaint: Diarrhea Narrative Narrative: Patient presenting today with nausea, vomiting, diarrhea, and abdominal pain that has been ongoing since Wednesday. She reports that she had similar symptoms about 2 weeks ago and thought she likely had the stomach flu at that time, her family was also sick at that time. She denies any sick contacts with this episode. She reports that the nausea and vomiting has improved but the diarrhea and abdominal pain have persisted. She took her son's Bentyl yesterday which did improve her symptoms somewhat. She denies fevers, chills, hematemesis, blood in the stool, and urinary symptoms. Previous abdominal surgeries include cholecystectomy and . 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
--- NOTE | 2025-04-01 11:13 | ED.VIS.GI ---
HPI HPI - GI History of Present Illness Chief Complaint: Diarrhea Narrative Narrative: Patient presenting today with nausea, vomiting, diarrhea, and abdominal pain that has been ongoing since Wednesday. She reports that she had similar symptoms about 2 weeks ago and thought she likely had the stomach flu at that time, her family was also sick at that time. She denies any sick contacts with this episode. She reports that the nausea and vomiting has improved but the diarrhea and abdominal pain have persisted. She took her son's Bentyl yesterday which did improve her symptoms somewhat. She denies fevers, chills, hematemesis, blood in the stool, and urinary symptoms. Previous abdominal surgeries include cholecystectomy and . 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 Asthmatic bronchitis History of ulceration Insomnia Wears contact lenses Wears glasses Depression Anxiety Low iron Back pain Migraine headache Injury of head and neck Gastric reflux Non-smoker CPAP (continuous positive airway pressure) dependence Asthma History of pain when walking Polyarthropathy Attention deficit disorder (ADD) in adult Anemia Bilateral foot pain PMDD (premenstrual dysphoric disorder) Endometriosis Home Medications ?Medication ?Instructions ?Recorded ?Last Taken ?Type fluticasone propionate 50 2 spray NASAL QHS 03/30/16 Unknown History mcg/actuation nasal spray,suspension magnesium oxide 400 mg (241.3 mg 400 mg PO DAILY 07/25/20 Unknown History magnesium) tablet hydroxychloroquine 200 mg tablet 200 mg PO BID 06/17/21 Unknown History (Plaquenil) multivitamin 1 tab PO DAILY 06/17/21 Unknown History B-complex with vitamin C 1 cap PO DAILY 11/10/21 Unknown History naproxen 500 mg tablet 500 mg PO Q8H PRN Pain 01/20/23 Unknown History albuterol sulfate 2.5 mg/3 mL 2.5 mg (3 mL) inhalation Q4H PRN 01/03/24 Unknown Rx (0.083 %) solution for nebulization shortness of breath or wheezing #90 mL cetirizine 10 mg tablet (Zyrtec) 10 mg PO DAILY 01/03/24 Unknown History albuterol sulfate 90 mcg/actuation 2 puff inhalation Q4H PRN PRN Sob 04/18/24 Unknown Rx aerosol inhaler &/Or Wheezing #1 ea esomeprazole magnesium 40 mg 40 mg PO DAILY #90 caps 05/02/24 Unknown Rx capsule,delayed release comp.stocking,thigh,long,large #2 ea 06/12/24 Unknown Rx fluticasone 500 mcg-salmeterol 50 1 inh inhalation BID #3 ea 06/12/24 Unknown Rx mcg/dose blistr powdr for inhalation (Advair Diskus) azelastine 137 mcg (0.1 %) nasal 1 spray intranasal DAILY PRN 07/31/24 Unknown Rx spray ALLERGIES #30 mL scopolamine base 1 mg over 3 days 1 patch transdermal Q3D PRN nasuea 09/14/24 Unknown Rx transdermal patch #4 ea elagolix 200 mg tablet (Orilissa) 200 mg PO BID #60 tabs 09/15/24 Unknown Rx duloxetine 30 mg capsule,delayed 30 mg PO BID #180 caps 09/22/24 Unknown Rx release montelukast 10 mg tablet 10 mg PO QHS #90 tabs 09/22/24 Unknown Rx prochlorperazine maleate 10 mg 10 mg PO TID PRN nausea and 10/11/24 Unknown Rx tablet vomiting #90 tabs semaglutide (weight loss) 1 mg/0.5 1 mg (0.5 mL) subcut QWEEK #2 mL 10/11/24 Unknown Rx mL subcutaneous pen injector (Wegovy) famotidine 40 mg tablet 40 mg PO QHS #90 TABLETS 01/31/25 Unknown Rx dicyclomine 20 mg tablet 20 mg PO TID #21 tabs 04/01/25 Unknown Rx ondansetron 4 mg disintegrating 4 mg PO Q8H PRN PRN Nausea #10 tabs 04/01/25 Unknown Rx tablet Allergy/AdvReac Type Severity Reaction Status Date / Time Penicillins Allergy Severe Hives Verified 04/01/25 10:51 lactose AdvReac Intermediate Upset Verified 04/01/25 10:51 Stomach Family History Mother Thyroid disorder Osteoarthritis Father Hyperlipidemia Grandmother Heart disease Cancer lymphoma Grandfather No problems noted. Grandfather Colon cancer Uncle Cancer lung Aunt Cancer ovarian Surgical History Hx of esophagogastroduodenoscopy Hx of cholecystectomy H/O adenoidectomy H/O laparoscopy delivery delivered History of tonsillectomy H/O dilation and curettage Social History Smoking Status: Never smoker alcohol intake: never substance use type: does not use caffeine: Yes what type of physical activity do you participate in: walking and other details: pool frequency: 3-4 times per week seatbelt use: always do you feel safe at home: Yes additional social history: Gerry Patient works at [employer] ED Constitutional Constitutional ED: Denies chills or fever(s) Cardiovascular Cardiovascular: Denies chest pain Respiratory/Chest Respiratory/Chest: Denies dyspnea Gastrointestinal Gastrointestinal: Reports abdominal pain, diarrhea, nausea and vomiting; Denies constipation, hematemesis, hematochezia or melena Genitourinary Genitourinary ED: Denies dysuria, hematuria or urinary urgency Musculoskeletal Musculoskeletal: Denies arthralgias or myalgias Integumentary Denies rash Neurologic Neurologic: Denies weakness EXAM Physical Exam Const Vital Signs: 04/01/25 10:51 04/01/25 13:07 04/01/25 13:07 Temperature 97.9 F 98.3 F Temperature Source Oral Pulse Rate 87 88 88 Respiratory Rate 16 16 16 Blood Pressure 103/64 91/57 L 91/57 L Blood Pressure Mean 77 68 68 Pulse Ox 97 99 99 Oxygen Delivery Method Room Air Room Air Positive well nourished, well developed and no apparent distress General Appearance ED: well developed HEENT Reports normocephalic and head/scalp atraumatic Mouth ED: Yes moist mucous membranes normal Eyes PERRL and EOMs intact bilaterally Neck full ROM and supple Chest Wall inspection of chest normal Resp normal respiratory effort and clear to auscultation bilaterally Cardio regular rate and regular rhythm GI soft to palpation, non-distended and no masses GI Narrative: Generalized abdominal tenderness to palpation, no rigidity or guarding Back/Spine normal ROM and normal to inspection Extremity normal to inspection and full ROM Neuro oriented x3, CN's II-XII intact bilaterally, moves all extremities, no focal motor deficits and no sensory deficits noted Sensorium / Orientation: awake and alert Psych mental status grossly normal and thought process normal Skin no rashes or lesions noted and no wounds MDM MDM MDM Narrative Medical decision making narrative: Patient presenting today with generalized abdominal pain, nausea, vomiting, and diarrhea she has had since Wednesday. Her nausea and vomiting did improve after Wednesday but the abdominal pain and diarrhea have persisted. On exam she is nontoxic-appearing and in no acute distress. She does have generalized abdominal pain on palpation. CT scan of the abdomen and pelvis with IV contrast to be obtained to assess for diverticulitis, colitis, and other abnormality. Labs will be obtained to assess for leukocytosis, electrolyte abnormality, KELSEY, and UTI. She will be given IV fluids, Zofran, and Bentyl. Labs reviewed, CBC is unremarkable, CMP her transaminases are elevated compared to baseline, alk phos has been elevated in the past. CT scan of the abdomen pelvis with IV contrast shows hepatomegaly with fatty liver and colon findings consistent with diarrhea. I suspect she likely has viral gastroenteritis. She does report improvement of her symptoms on reexamination. I will give her prescription and Zofran. Recommended that she have her liver enzymes reevaluated by her PCP in the next 5 to 7 days. Return instructions were discussed with her and patient discharged home in stable condition. Lab Data Attestation: I reviewed the patient's lab results. Labs: Laboratory Results - last 24 hr 04/01/25 11:31 WBC 5.5 RBC 4.80 Hgb 13.1 Hct 41.0 MCV 85.4 MCH 27.3 MCHC 32.0 RDW Std Deviation 41.6 RDW Coeff of Sara 13.2 Plt Count 222 MPV 9.4 Immature Gran % (Auto) 0.200 Neut % (Auto) 61.6 Lymph % (Auto) 28.7 Park % (Auto) 7.1 Eos % (Auto) 2.2 Baso % (Auto) 0.2 Absolute Neuts (auto) 3.4 Absolute Lymphs (auto) 1.57 Nucleated RBC % 0 Sodium 140 Potassium 4.2 Chloride 107 Carbon Dioxide 23.3 Anion Gap 10 BUN 9 Creatinine 0.68 L Estim Creat Clear Calc 102.61 Est GFR (MDRD) Non-Af 114 BUN/Creatinine Ratio 14.0 Glucose 91 Calcium 9.0 Total Bilirubin 0.24 AST 67 H ALT 114 H Alkaline Phosphatase 144 H Total Protein 6.9 Albumin 4.1 Globulin 2.9 Albumin/Globulin Ratio 1.4 Lipase 37 Serum , Qual NEGATIVE Urine Color Yellow Urine Clarity Clear Urine pH 6.0 Ur Specific [place] 1.020 Urine Protein 30 H Urine Glucose (UA) Normal Urine Ketones Negative Urine Occult Blood Negative Urine Nitrite Negative Urine Bilirubin 1 H Urine Urobilinogen Normal Ur Leukocyte Esterase 25 H Urine RBC 0 SEEN Urine WBC 0-5 SEEN Ur Squamous Epith Cells 0 SEEN Urine Bacteria 0 SEEN Urine Mucus 1+ Radiography Diagnostic Testing: Clinical Impression(s) from Imaging Studies Abdomen/Pelvis CT 04/01/25 11:12 IMPRESSION: 1. Hepatomegaly with fatty infiltration. 2. Colon filled with air-fluid levels without distension likely secondary to diarrhea. Clinical correlation is recommended. Reading Location: [facility] Discharge Plan Triage Chief Complaint: Diarrhea ED Midlevel Provider: Loly Gerardo ED Provider: Justyn Schwartz Dx/Rx/DC Orders Clinical Impression: Gastroenteritis, Elevated transaminase level Instructions: ED Gastroenteritis, Viral (Adult) Prescriptions: New ondansetron 4 mg tablet,disintegrating 4 mg PO Q8H PRN PRN (Reason: Nausea) Qty: 10 0RF dicyclomine 20 mg tablet 20 mg PO TID Qty: 21 0RF No Action multivitamin Tablet 1 tab PO DAILY hydroxychloroquine [Plaquenil] 200 mg tablet 200 mg PO BID magnesium oxide 400 mg (241.3 mg magnesium) tablet 400 mg PO DAILY B-complex with vitamin C Capsule 1 cap PO DAILY cetirizine [Zyrtec] 10 mg tablet 10 mg PO DAILY albuterol sulfate 2.5 mg /3 mL (0.083 %) solution for nebulization 2.5 mg INHALATION Q4H PRN (Reason: shortness of breath or wheezing) Qty: 90 2RF Orilissa 200 mg tablet 200 mg PO BID Qty: 60 12RF (DME) comp.stocking,thigh,long,large Misc See Rx Instructions .Route Qty: 2 3RF Rx Instructions: 20 -30 mmHg albuterol sulfate 90 mcg/actuation HFA aerosol inhaler 2 puff inhalation Q4H PRN PRN (Reason: Sob &/Or Wheezing) Qty: 1 11RF fluticasone propionate 1 SPRAY spray,suspension 2 spray NASAL QHS Patient Comments: allergies/ eases breathing naproxen 500 mg tablet 500 mg PO Q8H PRN (Reason: Pain) Rx Instructions: administer with food or milk esomeprazole magnesium 40 mg capsule,delayed release(DR/EC) 40 mg PO DAILY Qty: 90 5RF fluticasone propion-salmeterol [Advair Diskus] 500-50 mcg/dose blister with device 1 inh inhalation BID Qty: 3 3RF azelastine 137 mcg (0.1 %) spray,non-aerosol 1 spray INTRANASAL DAILY PRN (Reason: ALLERGIES) Qty: 30 11RF Rx Instructions: administer into each nostril scopolamine base 1 mg over 3 days patch 3 day 1 patch transdermal Q3D PRN (Reason: nasuea ) Qty: 4 1RF duloxetine 30 mg capsule,delayed release(DR/EC) 30 mg PO BID Qty: 180 3RF montelukast 10 mg tablet 10 mg PO QHS Qty: 90 3RF prochlorperazine maleate 10 mg tablet 10 mg PO TID PRN (Reason: nausea and vomiting) Qty: 90 1RF Wegovy 1 mg/0.5 mL pen injector 1 mg subcut QWEEK Qty: 2 4RF Rx Instructions: administer weeks 9 through 12 of therapy famotidine 40 mg tablet 40 mg PO QHS Qty: 90 2RF Primary Care Provider: Dianna Kraus Referrals: Dianna Kraus MD [Primary Care Provider] - 5-7 Days Activity Restrictions/Additional Instructions: Stable hydrated, follow-up with your PCP and return for any worsening symptoms. Please have your liver enzymes rechecked as they were slightly elevated here today. Print Language: [place] Leonean Disposition Disposition: Home, Self Care Discharge Date/Time: 04/01/25 13:18
[2025-04-01] MEDS: Dicyclomine 20 MG/2 ML Vial IM (11:27)
[2025-04-01] MEDS: 0.9% Normal Saline (1000mL) 1,000 ML 999 ML IV (11:27)
[2025-04-01] MEDS: Ondansetron 4 MG/2 ML Vial IV (11:27)
[2025-04-01 11:37] LABS: Bacteria 0 SEEN /hpf (None Seen); Red Blood Cells-Urine 0 SEEN /hpf (0-5); Squamous Epithelial Cells - UA 0 SEEN /hpf (5-10)
[2025-04-01 11:45] LABS: Color, Urine Yellow (Yellow); Glucose, Dipstick Normal (Normal); Ketone-Dipstick Negative (Negative); Leukocyte Esterase-Dipstick 25 /ul (Negative); Nitrite-Dipstick Negative (Negative); Occult Blood-Urine Negative /ul (Negative); Protein-Dipstick 30 mg/dl (Negative); Urine Clarity Clear (Clear); Urine Urobilinogen Normal (Normal)
[2025-04-01 11:47] LABS: Absolute Lymphocyte Count 1.57 X10^3/uL (0.83-4.51); Absolute Neutrophil Count 3.4 X10^3/uL (2.0-7.7); Basophil# 0.01 X10^3/uL; Basophil% 0.2 % (0-1); Eosinophil# 0.12 X10^3/uL; Eosinophils% 2.2 % (0-5); Hemoglobin 13.1 g/dL (12.0-15.0); Lymphocyte # 1.57 X10^3/ul (0.83-4.51); Lymphocyte % 28.7 % (19-41); Mean Corpuscular Hgb 27.3 pg (27.0-32.0); Mean Corpuscular Volume 85.4 fL (81-99); Mean Platelet Vol. 9.4 fl (6.2-12.0); Monocyte# 0.39 X10^3/uL; Monocyte% 7.1 % (0-10); NRBC Flagged by Analyzer 0 % (0-5); Neutrophil # 3.37 X10^3/uL (2.7-7.7); Neutrophil % 61.6 % (47-70); Platelet Count 222 K/mm3 (150-450); RBC Distribution Width CV 13.2 % (11.6-14.6); RBC Distribution Width SD 41.6 fl (35.1-43.9); White Blood Count 5.5 K/mm3 (4.4-11.0)
[2025-04-01 11:48] LABS: Urine Bilirubin Dipstick 1 mg/dL (Negative)
[2025-04-01 11:52] LABS: Internal QC Validated? YES +Cl - CLEAR BKGD; Pregnancy, Serum, hCG Quali. NEGATIVE Negative
[2025-04-01 12:00] LABS: ALB/GLOB Ratio 1.4 RATIO (0.9-2.4); AST(SGOT) 67 U/L (<=31); Alanine Aminotransfer ALT/SGPT 114 U/L (<=34); Albumin, Serum 4.1 g/dL (3.5-5.0); Alkaline Phosphatase 144 U/L (35-104); Anion Gap 10 (5-15); BUN 9 mg/dL (4-19); Carbon Dioxide 23.3 mmol/L (21.0-32.0); Chloride 107 mmol/L (98-108); Creatinine, Serum 0.68 mg/dL (0.70-1.20); EST Glomerular Filtration Rate 114 (>60); Estimated Creatinine Clearance 102.61 ml/min (50-250); Globulin 2.9 g/dL (2.2-4.2); Glucose 91 mg/dL (70-99); Lipase 37 U/L (13-75); Potassium 4.2 mmol/L (3.3-5.1); Protein, Total 6.9 g/dL (5.9-8.4); Sodium Level 140 mmol/L (133-145); Total Bilirubin 0.24 mg/dL (0.00-1.30)
[2025-04-01 12:05] LABS: Mucous, Urine 1+ /hpf (<or=2+); White Blood Cells 0-5 SEEN /hpf (0-5)
[2025-04-01 13:07] VITALS: BP 91/57; PULSE 88; RESP 16; TEMP 36.8; O2SAT 99
== END 2025-04-01 13:18 | disposition home or self-care (01) ==
PROVIDERS: Physician Assistant; Emergency Provider Emergency Medicine; PCP Internal Medicine; Visit Provider Emergency Medicine
DX: A08.4 Viral intestinal infection, unspecified (principal); R10.9 Unspecified abdominal pain; J45.909 Unspecified asthma, uncomplicated; R74.01 Elevation of levels of liver transaminase levels
CPT/HCPCS: 74177; 80053; 81001; 83690; 84703; 85025; 96372; 96374; 96376; 99283; Q9967; A4216; J2405

== ENCOUNTER 2025-04-23 09:01 | Outpatient (RCR) | payer BC, SELFPAY | END 2025-05-14 23:59 | LOC: NS 09:01 | PROVIDERS: PCP Internal Medicine; Referring Provider Internal Medicine; Visit Provider Internal Medicine | DX: Z71.3 Dietary counseling and surveillance (principal); E66.9 Obesity, unspecified; Z68.31 Body mass index [BMI] 31.0-31.9, adult | CPT/HCPCS: 97803 ==

== ENCOUNTER → 2025-04-27 | Outpatient (CLI) | payer BC, SELFPAY ==
--- NOTE | 2025-04-27 09:04 | VDLE_ITS ---
Reason For Study Reason For Study: Bilateral leg pain RIGHT LEFT CFV is compressible, spontaneous, phasic, competent CFV is compressible, spontaneous, phasic, competent, and demonstrates normal augmentation. and demonstrates normal augmentation. FV is compressible, spontaneous, phasic, competent FV is compressible, spontaneous, phasic, competent and demonstrates normal augmentation. and demonstrates normal augmentation. POP V is compressible, spontaneous, phasic, competent POP V is compressible, spontaneous, phasic, competent and demonstrates normal augmentation. and demonstrates normal augmentation. T/P Trunk is compressible. T/P Trunk is compressible. PTV is compressible. PTV is compressible. RT PerV is compressible. LT PerV is compressible. SFJ is competent and measures 0.73 cm. SFJ is INCOMPETENT and measures 0.64 cm. GSV proximal thigh measures 0.46 x 0.43 cm. GSV proximal thigh measures 0.53 x 0.53 cm. GSV at knee measures 0.43 x 0.43 cm. GSV above knee is INCOMPETENT for greater than 0.5 GSV INCOMPETENT throughout for greater than 0.5 seconds. seconds. GSV at knee measures 0.31 x 0.32 cm. ASV from junction thats goes medial is INCOMPETENT GSV below knee is competent. for greater than 0.5 seconds and measures 0.36 x 0.34 Unable to visualized GSV prox-mid calf. cm. ASV proximal thigh is INCOMPETENT for greater than SSV mid calf is competent and measures 0.13 x 0.13 0.5 seconds and measures 0.34 x 0.33 cm. Goes cm. anterior on thigh and extends laterally down leg. Procedure ASV proximal calf is INCOMPETENT for greater than 0.5 This is a venous duplex using B-mode, color flow and seconds and measures 0.12 x 0.11 cm. Connects GSV spectral Doppler. knee to GSV distal calf. Exam performed in department. SSV mid calf is competent and measures 0.19 x 0.20 Patient was scanned in reverse Trendelenburg position cm. during reflux assessment. VL/Venous Duplex US - Benitez Extrem Interpretation Summary Deep veins of the bilateral lower extremities are patent and compressible segme ntally. There is no evidence of bilateral lower extremity deep vein thrombosis. The bilateral great saphenous veins appea r patent and compressible segmentally. Positive for reflux in the right great saphenous vein throughout, accessory sap henous vein from femoral junction. Positive for reflux in the left saphenofemoral junction, great saphenous vein a remedios the knee, accessory saphenous vein in the thigh, and accessory saphenous vein in the calf. Ordering Physician: Samantha Perez Referring Physician: Dianna Kraus Performed By: Cony Orlando RVT
== END | disposition home or self-care (01) ==
LOC: CVS 09:03
PROVIDERS: PCP Internal Medicine; Referring Provider Physician Assistant; Visit Provider Physician Assistant
DX: I83.899 Varicose veins of unspecified lower extremity with other complications (principal); M79.606 Pain in leg, unspecified
CPT/HCPCS: 93970

== ENCOUNTER 2025-05-28 10:03 | Outpatient (RCR) | payer BC, SELFPAY | END 2025-06-14 23:59 | LOC: NS 10:03 | PROVIDERS: PCP Internal Medicine; Referring Provider Internal Medicine; Visit Provider Internal Medicine | DX: Z71.3 Dietary counseling and surveillance (principal); E66.9 Obesity, unspecified | CPT/HCPCS: 97803 ==

== ENCOUNTER 2025-07-02 09:01 | Outpatient (RCR) | payer BC, SELFPAY | END 2025-07-15 23:59 | LOC: NS 09:01 | PROVIDERS: PCP Internal Medicine; Referring Provider Internal Medicine; Visit Provider Internal Medicine | DX: Z71.3 Dietary counseling and surveillance (principal); E66.9 Obesity, unspecified; Z68.34 Body mass index [BMI] 34.0-34.9, adult | CPT/HCPCS: 97803 ==

== ENCOUNTER 2025-08-09 09:20 | Day surgery (SDC) | payer BC, SELFPAY ==
[2025-07-18 07:34] VITALS: BMI 31.5
--- NOTE | 2025-08-09 11:50 | PCM.HP.STD ---
HPI - General HPI Narrative JOSEPH KHAN, is a 40 F who presents with painful left lower extremity varicose veins refractory to compression. She has reflux in the above knee great saphenous vein. 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 Asthmatic bronchitis History of ulceration Insomnia Wears contact lenses Wears glasses Depression Anxiety Low iron Back pain Migraine headache Injury of head and neck Gastric reflux Non-smoker CPAP (continuous positive airway pressure) dependence Asthma History of pain when walking Polyarthropathy Attention deficit disorder (ADD) in adult Anemia Bilateral foot pain PMDD (premenstrual dysphoric disorder) Endometriosis Home Medications ?Medication ?Instructions ?Recorded ?Last Taken ?Type fluticasone propionate 50 2 spray NASAL QHS 03/30/16 Unknown History mcg/actuation nasal spray,suspension magnesium oxide 400 mg (241.3 mg 400 mg PO DAILY 07/25/20 Unknown History magnesium) tablet hydroxychloroquine 200 mg tablet 200 mg PO BID 06/17/21 Unknown History (Plaquenil) multivitamin 1 tab PO DAILY 06/17/21 Unknown History B-complex with vitamin C 1 cap PO DAILY 11/10/21 Unknown History naproxen 500 mg tablet 500 mg PO Q8H PRN Pain 01/20/23 Unknown History albuterol sulfate 2.5 mg/3 mL 2.5 mg (3 mL) inhalation Q4H PRN 01/03/24 Unknown Rx (0.083 %) solution for nebulization shortness of breath or wheezing #90 mL cetirizine 10 mg tablet (Zyrtec) 10 mg PO DAILY 01/03/24 Unknown History comp.stocking,thigh,long,large #2 ea 06/12/24 Unknown Rx azelastine 137 mcg (0.1 %) nasal 1 spray intranasal DAILY PRN 07/31/24 Unknown Rx spray ALLERGIES #30 mL scopolamine base 1 mg over 3 days 1 patch transdermal Q3D PRN nasuea 09/14/24 Unknown Rx transdermal patch #4 ea elagolix 200 mg tablet (Orilissa) 200 mg PO BID #60 tabs 09/15/24 Unknown Rx duloxetine 30 mg capsule,delayed 30 mg PO BID #180 caps 09/22/24 Unknown Rx release montelukast 10 mg tablet 10 mg PO QHS #90 tabs 09/22/24 Unknown Rx prochlorperazine maleate 10 mg 10 mg PO TID PRN nausea and 10/11/24 Unknown Rx tablet vomiting #90 tabs famotidine 40 mg tablet 40 mg PO QHS #90 TABLETS 01/31/25 Unknown Rx dicyclomine 20 mg tablet 20 mg PO TID #21 tabs 04/01/25 Unknown Rx ondansetron 4 mg disintegrating 4 mg PO Q8H PRN PRN Nausea #10 tabs 04/01/25 Unknown Rx tablet esomeprazole magnesium 40 mg 40 mg PO DAILY #90 caps 04/16/25 Unknown Rx capsule,delayed release albuterol sulfate 90 mcg/actuation 2 puff inhalation Q4H PRN PRN Sob 04/26/25 Unknown Rx aerosol inhaler &/Or Wheezing #1 ea fluticasone 500 mcg-salmeterol 50 1 inh inhalation BID #3 ea 04/26/25 Unknown Rx mcg/dose blistr powdr for inhalation (Advair Diskus) meloxicam 15 mg tablet 15 mg PO QDAY 04/26/25 Unknown History tirzepatide 2.5 mg/0.5 mL 2.5 mg (0.5 mL) subcut QWEEK #2 mL 06/25/25 Unknown Rx subcutaneous pen injector (Chinounsamirro) Allergy/AdvReac Type Severity Reaction Status Date / Time Penicillins Allergy Severe Hives Verified 04/26/25 10:50 lactose AdvReac Intermediate Upset Verified 04/26/25 10:50 Stomach Family History Mother Thyroid disorder Osteoarthritis Father Hyperlipidemia Grandmother Heart disease Cancer lymphoma Grandfather No problems noted. Grandfather Colon cancer Uncle Cancer lung Aunt Cancer ovarian Surgical History Hx of esophagogastroduodenoscopy Hx of cholecystectomy H/O adenoidectomy H/O laparoscopy delivery delivered History of tonsillectomy H/O dilation and curettage Social History Smoking Status: Never smoker alcohol intake: never substance use type: does not use caffeine: Yes what type of physical activity do you participate in: walking and other details: pool frequency: 3-4 times per week seatbelt use: always do you feel safe at home: Yes additional social history: Gerry Patient works at [employer] Constitutional Constitutional: Denies chills, fever(s), frequent falls, lethargy or weakness Eyes Eyes: Denies blind spots, change in vision or loss of vision ENT HEENT: Denies bleeding gums, hoarseness or sore throat Cardiovascular Cardiovascular: Denies abdominal pain, bluish discoloration of hand/feet, chest pain with activity, claudication, cold extremities, cyanosis, dyspnea on exertion, erythema on extremities, irregular heart rhythm, leg edema, leg ulcers, numbness in extremities or weakness in extremities Respiratory/Chest Respiratory/Chest: Denies cough, excessive phlegm production, shortness of breath at rest, shortness of breath with exertion or wheezing Gastrointestinal Gastrointestinal: Denies anorexia, change in stool character, constipation, diarrhea, melena or rectal bleeding Genitourinary Genitourinary: Denies dysuria or hematuria Musculoskeletal Musculoskeletal: Denies abnormal gait Integumentary Integumentary: Reports other Details: ; Denies erythema, non-healing lesions or wounds Neurologic Neurologic: Denies abnormal speech, focal weakness, headache(s), loss of vision, numbness, paresthesias or sensory deficit Hematologic/Lymphatic Hematologic/Lymphatic: Denies easy bleeding, easy bruising or lymphadenopathy Vital Signs Vital Signs Vital Signs: Weight Weight: 167 lb Body Mass Index (BMI) 31.5 Physical Exam Const alert, oriented x3, no apparent distress and healthy appearing General Appearance: cooperative; Negative for combative or lethargic Orientation / Consciousness: awake Exam Limitations: no limitations HEENT Head and Scalp: normocephalic and atraumatic Eyes EOMs intact bilaterally General Eye: normal appearance of both eyes Neck full ROM, no lymphadenopathy, thyroid normal and No no carotid bruits General: trachea midline; Negative for lymphadenopathy or tenderness Thyroid: thyroid normal Lymph Lymphatic: Negative for no lymphadenopathy noted Resp normal respiratory effort, no use of accessory muscles and clear to auscultation bilaterally Effort and Inspection: Negative for labored, stridor or audible wheezes Cardio regular rate and regular rhythm Back/Spine Cervical Spine: cervical ROM normal Extremity full ROM, normal capillary refill and no clubbing, cyanosis or edema Skin no rashes or lesions noted and no wounds Neuro oriented x3, CN's II-XII intact bilaterally, no focal motor deficits and no sensory deficits noted Psych thought process normal, cooperative, affect normal, speech normal and activity/motor behavior normal Assessment & Plan Assessment/Plan (1) Varicose veins of left lower extremity with pain: PLAN: -RF ablation
--- NOTE | 2025-08-09 12:42 | OP.PCM_ITS ---
Operative Report (Standard) Operative Information Date of Procedure: 08/09/25 Pre-Operative Diagnosis: painful varicose veins, left lower extremity Post-Operative Diagnosis: same Surgery/Procedure Performed: aborted left GSV thermal ablation mba internship: No Type of Anesthesia: Local and Sedation,Conscious Procedure Start Time: 12:30 Procedure Stop Time: 12:45 Select all DRAINS/GRAFTS/IMPLANTS that apply: None Estimated Blood Loss: 1 Specimen collected: No Description of surgery: HPI: Patient is a 40-year-old female with painful varicose veins of the left lower extremity. She has failed conservative management with compression garments and she presents now for possible radiofrequency ablation. She has valvular reflux from the saphenofemoral junction to the proximal calf. Her initial reflux imaging revealed satisfactory caliber great saphenous vein for expected successful access and ablation. In the preop area mapping and assessment of the saphenous revealed small caliber great saphenous vein much smaller caliber than on the initial imaging potentially due to spasm. It was felt that efforts to perform ablation were still worth the attempt so she was then taken to the [facility] where she was positioned prepped and draped in usual sterile fashion. Timeouts performed conscious sedation administered Versed and fentanyl. Skin overlying the great saphenous vein in the distal thigh and proximal calf was anesthetized 1% lidocaine the vessel attempted be accessed with micropuncture needle wire. We were ultimately able to access it with a needle in several locations however we were unable to advance the wire with what felt like significant friction from the spasm of the vessel. Despite her efforts we were unable to successfully gain access and advance our micropuncture wire. It was felt that no further efforts would be beneficial to measure pressures out of the puncture sites and dry sterile dressing applied. The patient was then taken to the recovery area plan discharged home with potential repeat effort with cutdown versus foam ablation if approved by insurance. Surgical Findings: smaller caliber/spasm GSV, worsened with manipulation; able to access but unable to advance wire Complications Complications: No
== END 2025-08-09 13:45 | disposition home or self-care (01) ==
PROVIDERS: PCP Internal Medicine; Referring Provider Surgery Trauma Surgery; Visit Provider Surgery Trauma Surgery
DX: I83.812 Varicose veins of left lower extremity with pain (principal); K21.9 Gastro-esophageal reflux disease without esophagitis; J45.909 Unspecified asthma, uncomplicated; Z53.09 Procedure and treatment not carried out because of other contraindication
CPT/HCPCS: 99152; 99153; C1894; A4216

== ENCOUNTER 2025-09-17 15:52 | Outpatient (RCR) | payer BC, SELFPAY | END 2025-10-14 23:59 | LOC: NS 15:52 | PROVIDERS: PCP Internal Medicine; Referring Provider Internal Medicine; Visit Provider Internal Medicine | DX: Z71.3 Dietary counseling and surveillance (principal); E66.9 Obesity, unspecified; Z68.37 Body mass index [BMI] 37.0-37.9, adult | CPT/HCPCS: 97803 ==

== ENCOUNTER 2025-10-23 15:57 | Outpatient (RCR) | payer BC, SELFPAY | END 2025-11-14 23:59 | LOC: NS 15:57 | PROVIDERS: PCP Internal Medicine; Referring Provider Internal Medicine; Visit Provider Internal Medicine | DX: Z71.3 Dietary counseling and surveillance (principal); E66.9 Obesity, unspecified; Z68.37 Body mass index [BMI] 37.0-37.9, adult | CPT/HCPCS: 97803 ==

== ENCOUNTER → 2025-10-31 | Outpatient (CLI) | payer BC, SELFPAY ==
[2025-11-05 15:08] LABS: HPV APTIMA, High Risk Negative (Negative)
== END | disposition home or self-care (01) ==
LOC: BWCLAB 16:07
PROVIDERS: PCP Internal Medicine; Visit Provider Nurse Practitioner Family
DX: Z12.4 Encounter for screening for malignant neoplasm of cervix (principal)
CPT/HCPCS: 87624; 88175; G0145

== ENCOUNTER → 2025-11-06 | Outpatient (CLI) | payer BC, SELFPAY ==
[2025-11-06 10:32] LABS: AST(SGOT) 24 U/L (<=31); Alanine Aminotransfer ALT/SGPT 22 U/L (<=34); Albumin, Serum 3.9 g/dL (3.5-5.0); Alkaline Phosphatase 117 U/L (35-104); Anion Gap 8 (7-18); BUN 13 mg/dL (4-19); BUN/Creat Ratio 19.1 RATIO (10-20); Calcium,Total 8.8 mg/dL (7.6-11.0); Carbon Dioxide 27.4 mmol/L (20.0-29.0); Chloride 105 mmol/L (96-106); Cholesterol 182 mg/dL (<=200); Globulin 2.8 g/dL (2.2-4.2); Glucose 92 mg/dL (70-99); Low Density Lipoprotein Calc. 99 mg/dL; Potassium 4.0 mmol/L (3.5-5.1); Triglycerides 63 mg/dL; Very Low Density Lipoprotein 13 mg/dL (5-40); cholesterol:hdl ratio screen 2.57
== END | disposition home or self-care (01) ==
PROVIDERS: PCP Internal Medicine
DX: E66.9 Obesity, unspecified (principal); G47.33 Obstructive sleep apnea (adult) (pediatric); R74.8 Abnormal levels of other serum enzymes; Z13.1 Encounter for screening for diabetes mellitus; Z13.220 Encounter for screening for lipoid disorders
CPT/HCPCS: 36415; 80053; 80061; 83036; 84439; 84443